=== PATIENT | male | born 1950 | race Caucasian/White ===

== ENCOUNTER → 2017-07-27 14:46 | Outpatient (CLI) | payer MEDICARE, SELFPAY ==
--- NOTE | 2017-07-27 14:47 | CT_ITS ---
STUDY: CTA CHEST REASON FOR EXAM: Male, 67 years old. Thoracic aortic aneurysm. RADIATION DOSAGE (If Supplied By Facility): CTDIvol = ( 17.91 ) mGy, DLP = ( 796.93 ) mGycm TECHNIQUE: The examination was performed with the intravenous administration of 100mL ml of Isovue 370 contrast material. Post-processing of the angiographic images was performed, with multiplanar reformation and 3D reconstruction. Individualized dose optimization techniques were used for this CT. COMPARISON: January 08, 2010. FINDINGS: Normal enhancement of the main pulmonary artery and right and left pulmonary arteries. Normal enhancement of the bilateral peripheral pulmonary arteries. There is no demonstrated pulmonary embolism. There is aneurysmal dilatation of the ascending aorta. The transverse diameter of the ascending aorta measures 49 mm's. There is no demonstrated aortic dissection. There are calcifications of the coronary arteries. Normal mediastinum. Normal hilar regions. Normal visualized trachea and bronchi. The lungs are well expanded. There are mildly increased diffuse interstitial parenchymal markings. Normal pleura. Normal chest wall structures. There are degenerative changes of thoracic spine. Degenerative change of the shoulders. Normal visualized upper abdomen. CT/CTA Chest W/WO Contrast IMPRESSION: Aneurysmal dilatation of the ascending aorta, increased compared to the prior study. No dissection. No focal infiltrate. A dominant mass Electronically Signed: Mitchell Verdugo MD at 23:14 EST , Service support ,
[2017-07-27 15:01] LABS: EGFR FINGERSTICK > 60.0000 mL/min (>60)
== END ==
PROVIDERS: Visit Provider Physician Assistant Medical
DX: I71.2 Thoracic aortic aneurysm, without rupture (principal)
CPT/HCPCS: 71275; Q9967

== ENCOUNTER → 2017-09-27 10:14 | Outpatient (CLI) | payer MEDICARE, SELFPAY ==
[2017-09-27 12:24] LABS: Anion Gap 8 (5-15); BUN 15 mg/dL (7-18); BUN/Creat Ratio 16.6 RATIO (10-20); Calcium,Total 9.5 mg/dL (8.5-10.1); Chloride 108 mmol/L (98-107); Cholesterol 195 mg/dL (200); EST Glomerular Filtration Rate 90 mL/min (>60); Est Glom Filt Rate - Afr Amer 109 mL/min (>60); Glucose 97 mg/dL (74-106); High Density Lipoprotein 39 mg/dL; Potassium 3.8 mmol/L (3.5-5.1); Sodium Level 141 mmol/L (136-145); Triglycerides 179 mg/dL; Very Low Density Lipoprotein 36 mg/dL (5-40)
== END ==
PROVIDERS: Family Provider Internal Medicine; PCP Internal Medicine; Visit Provider Internal Medicine
DX: I10 Essential (primary) hypertension (principal)
CPT/HCPCS: 36415; 80048; 80061

== ENCOUNTER 2017-10-21 06:48 | Day surgery (SDC) | payer MEDICARE, SELFPAY ==
--- NOTE | 2017-10-11 08:17 | EKG12_ITS ---
Test Reason : PREOP Blood Pressure : / mmHG Vent. Rate : 056 BPM Atrial Rate : 056 BPM P-R Int : 322 ms QRS Dur : 114 ms QT Int : 434 ms P-R-T Axes : 031 -31 006 degrees QTc Int : 418 ms Sinus bradycardia with 1st degree A-V block Left axis deviation Abnormal ECG Confirmed by MANINDER HUTCHINSON, VERN ([id number]), associate entertainment editor ELIUD CRANE ([id number]) on 10/12/2017 2:17:48 PM Referred By: Luis oFster Confirmed By:VERN DICKENS MD
[2017-10-21] VITALS (7 sets, daily range): BP systolic 108–153; BP diastolic 82–100; PULSE 50–87; RESP 16–18; TEMP 36.8–36.9; O2SAT 94–95; BMI 34.0
--- NOTE | 2017-10-21 08:21 | PCM.OPRPT ---
Problem List (1) Screen for colon cancer Status: Acute Report of Operation Date of Procedure: 10/21/17 Pre-Operative Diagnosis: Screening colon cancer Post-Operative Diagnosis: Normal colonoscopy Surgery/Procedure Performed:: Colonoscopy Specimen's removed: None Description of Procedure: The major risks and benefits associated with the procedure were explained to the patient in detail. The patient verbalized understanding and agreement with the same. The patient was brought to the endoscopy suite. After adequate sedation was achieved, the patient was placed in the left lateral decubitus position and a digital rectal exam was performed. This examination was within normal limits. A well-lubricated colonoscope was then inserted into the rectum and advanced under direct visualization to the level of the cecum. The bowel prep was good. The cecum was identified by both visual and anatomic landmarks. A photograph was taken of the end of the cecum. The scope was then fully withdrawn while examining the color, texture, anatomy and integrity of the mucosa from the cecum to the anal canal. The findings were consistent with normal colonic mucosa. Over 6 minutes were taken to examine the colonic mucosa. Upon reaching the rectum the scope was retroflexed to examine the distal rectal vault. The scope was then straightened and was completely retrieved upon exiting the anal canal and the procedure was terminated. The patient was then transferred to the recovery room in stable condition. Recommendations for follow up: 10 years
== END 2017-10-21 09:16 | disposition home or self-care (01) ==
LOC: EN 06:49 → AC 06:49
PROVIDERS: Family Provider Internal Medicine; PCP Internal Medicine; Visit Provider Surgery
PROC: 0DJD8ZZ Inspection of Lower Intestinal Tract, Via Natural or Artificial Opening Endoscopic (ICD-10-PCS; CPT 45378; principal; 2017-10-21 07:55)
DX: Z12.11 Encounter for screening for malignant neoplasm of colon (principal); I10 Essential (primary) hypertension; I49.3 Ventricular premature depolarization; I77.89 Other specified disorders of arteries and arterioles; I51.9 Heart disease, unspecified; G47.30 Sleep apnea, unspecified; G25.81 Restless legs syndrome; H35.30 Unspecified macular degeneration; Z79.82 Long term (current) use of aspirin; Z79.899 Other long term (current) drug therapy
CPT/HCPCS: G0121; 93005; J7120

== ENCOUNTER → 2018-01-17 08:19 | Outpatient (CLI) | payer MEDICARE, SELFPAY | PROVIDERS: Family Provider Internal Medicine; PCP Internal Medicine; Visit Provider Orthopaedic Surgery | DX: M25.561 Pain in right knee (principal); M25.562 Pain in left knee | CPT/HCPCS: 73564 ==

== ENCOUNTER → 2018-01-30 12:35 | Outpatient (CLI) | payer MEDICARE, SELFPAY ==
[2018-01-30 13:15] LABS: CREATININE FINGERSTICK < 0.6 mg/dL (0.70-1.30); EGFR FINGERSTICK > 60.0000 mL/min (>60)
== END ==
PROVIDERS: Family Provider Internal Medicine; PCP Internal Medicine; Visit Provider Physician Assistant Medical
DX: I71.9 Aortic aneurysm of unspecified site, without rupture (principal)
CPT/HCPCS: 71275; Q9967

== ENCOUNTER → 2018-03-09 08:31 | Outpatient (CLI) | payer MEDICARE, SELFPAY ==
--- NOTE | 2018-03-09 08:34 | RAD_ITS ---
STUDY: X-RAY - LEFT SHOULDER REASON FOR EXAM: Left shoulder pain. TECHNIQUE: 3 view(s) of the shoulder. COMPARISON: None. FINDINGS: There is severe glenohumeral arthrosis with marginal osteophytes of the humeral head and joint space loss. Normal acromioclavicular joint. Normal acromion. Normal humeral head and visualized proximal humerus. There are intra-articular bodies. Normal visualized pulmonary apex. RAD/Shoulder min 2 Views IMPRESSION: Advanced glenohumeral arthrosis with intra-articular bodies. Electronically Signed: Mahin Boles MD at 16:00 EDT Tel , Service support ,
== END ==
PROVIDERS: Family Provider Internal Medicine; PCP Internal Medicine; Referring Provider Orthopaedic Surgery; Visit Provider Orthopaedic Surgery
DX: M25.511 Pain in right shoulder (principal)
CPT/HCPCS: 73030

== ENCOUNTER → 2018-06-01 11:10 | Outpatient (CLI) | payer MEDICARE, SELFPAY ==
--- NOTE | 2018-06-01 11:12 | RAD_ITS ---
STUDY: X-RAY - LEFT KNEE REASON FOR EXAM: Male, 67 years old. Knee pain. TECHNIQUE: 4 view(s) of the knee. COMPARISON: January 17, 2018. FINDINGS: There is stable osteopenia. Normal visualized distal femur. Normal visualized proximal tibia and fibula. Normal proximal tibiofibular articulation. There is moderate to severe arthrosis of the medial compartment unchanged. Normal lateral femorotibial compartment. There is lateral subluxation and tilt of the patella with moderate arthrosis of the patellofemoral compartment unchanged. The soft tissue structures are unremarkable. RAD/Knee 4 or More Views IMPRESSION: Stable osteopenia with osteoarthrosis of the medial and patellofemoral compartments. Electronically Signed: Will Erazo MD at 17:14 EST , Service support ,
== END ==
PROVIDERS: Family Provider Internal Medicine; Referring Provider Orthopaedic Surgery; Visit Provider Orthopaedic Surgery
DX: M19.90 Unspecified osteoarthritis, unspecified site (principal)
CPT/HCPCS: 73564

== ENCOUNTER → 2018-07-17 08:56 | Outpatient (CLI) | payer MEDICARE, SELFPAY ==
[2018-07-17 08:08] VITALS: BMI 32.0
[2018-07-17 10:31] LABS: Absolute Lymphocyte Count 1.29 X10^3/ul (0.83-4.51); Absolute Neutrophil Count 2.9 X10^3/uL (2.0-7.7); Basophil# 0.03 X10^3/uL; Basophil% 0.6 % (0-1); Eosinophil# 0.13 X10^3/uL; Eosinophils% 2.7 % (0-5); Hematocrit 44.7 % (40-54); Hemoglobin 15.3 g/dl (13.0-16.5); Lymphocyte # 1.29 X10^3/ul (4.0); Lymphocyte % 26.6 % (19-41); Mean Corp Hgb Conc 34.2 g/gl (32-36); Mean Corpuscular Hgb 31.9 pg (27.0-32.0); Mean Corpuscular Volume 93.1 fL (80-94); Mean Platelet Vol. 9.3 fl (6.2-12.0); Monocyte# 0.49 X10^3/uL; Monocyte% 10.1 % (0-10); Neutrophil % 59.8 % (47-70); Platelet Count 249 K/mm3 (150-450); RBC Distribution Width CV 12.9 % (11.6-14.6); RBC Distribution Width SD 43.7 fl (35.1-43.9); White Blood Count 4.9 K/mm3 (4.4-11.0)
[2018-07-17 10:33] LABS: POSITIVE COUNT NO; POSITIVE DIFFERENTIAL NO; POSITIVE MORPHOLOGY NO
[2018-07-17 10:46] LABS: ALB/GLOB Ratio 1.2 RATIO (0.9-2.4); AST(SGOT) 20 U/L (15-37); Alanine Aminotransfer ALT/SGPT 26 U/L (16-61); Albumin, Serum 4.3 g/dL (3.2-5.0); Alkaline Phosphatase 64 U/L (45-117); Anion Gap 9 (5-15); BUN 12 mg/dL (7-18); BUN/Creat Ratio 14.2 RATIO (10-20); Calcium,Total 9.5 mg/dL (8.5-10.1); Chloride 108 mmol/L (98-107); Cholesterol 179 mg/dL (200); Creatinine, Serum 0.84 mg/dL (0.70-1.30); EST Glomerular Filtration Rate 97 mL/min (>60); Est Glom Filt Rate - Afr Amer 117 mL/min (>60); Globulin 3.6 g/dL (2.2-4.2); Glucose 102 mg/dL (74-106); High Density Lipoprotein 45 mg/dL; Potassium 3.4 mmol/L (3.5-5.1); Protein, Total 7.9 g/dL (6.4-8.2); Sodium Level 143 mmol/L (136-145); Triglycerides 156 mg/dL; Very Low Density Lipoprotein 31 mg/dL (5-40)
== END ==
PROVIDERS: Family Provider Internal Medicine; PCP Internal Medicine; Referring Provider Internal Medicine; Visit Provider Internal Medicine
DX: I10 Essential (primary) hypertension (principal)
CPT/HCPCS: 36415; 80053; 80061; 85025

== ENCOUNTER → 2018-10-16 | Outpatient (CLI) | payer MEDICARE, SELFPAY ==
[2018-10-16 08:11] VITALS: BMI 32.0
[2018-10-16 12:29] LABS: Erythrocyte Sedimentation Rate 10 mm/hr (0-20)
[2018-10-16 12:45] LABS: CRP < 2.90 mg/L (0.0-3.0)
== END | disposition home or self-care (01) ==
PROVIDERS: Family Provider Internal Medicine; PCP Internal Medicine; Visit Provider Internal Medicine
DX: M19.90 Unspecified osteoarthritis, unspecified site (principal)
CPT/HCPCS: 36415; 85652; 86140; 86431

== ENCOUNTER → 2018-12-13 | Outpatient (CLI) | payer MEDICARE, SELFPAY ==
[2018-10-24 08:25] VITALS: BMI 32.0
[2018-12-13 12:19] LABS: Absolute Lymphocyte Count 1.19 X10^3/ul (0.83-4.51); Absolute Neutrophil Count 2.1 X10^3/uL (2.0-7.7); Basophil# 0.01 X10^3/uL; Basophil% 0.3 % (0-1); Eosinophils% 2.6 % (0-5); Hematocrit 43.5 % (40-54); Hemoglobin 15.2 g/dl (13.0-16.5); Lymphocyte # 1.19 X10^3/ul (4.0); Lymphocyte % 31.1 % (19-41); Mean Corp Hgb Conc 34.9 g/gl (32-36); Mean Corpuscular Hgb 32.2 pg (27.0-32.0); Mean Corpuscular Volume 92.2 fL (80-94); Mean Platelet Vol. 9.2 fl (6.2-12.0); Monocyte# 0.48 X10^3/uL; Monocyte% 12.5 % (0-10); Neutrophil # 2.05 X10^3/uL (2.7-7.7); Neutrophil % 53.5 % (47-70); Platelet Count 247 K/mm3 (150-450); RBC Distribution Width CV 13.3 % (11.6-14.6); RBC Distribution Width SD 44.9 fl (35.1-43.9); Red Blood Count 4.72 M/mm3 (4.6-6.2); White Blood Count 3.8 K/mm3 (4.4-11.0)
[2018-12-13 12:21] LABS: POSITIVE COUNT NO; POSITIVE DIFFERENTIAL NO; POSITIVE MORPHOLOGY NO
[2018-12-13 12:49] LABS: Erythrocyte Sedimentation Rate 8 mm/hr (0-20)
[2018-12-13 12:51] LABS: ALB/GLOB Ratio 1.1 RATIO (0.9-2.4); AST(SGOT) 22 U/L (15-37); Alanine Aminotransfer ALT/SGPT 26 U/L (16-61); Albumin, Serum 4.2 g/dL (3.2-5.0); Alkaline Phosphatase 65 U/L (45-117); Anion Gap 9 (5-15); BUN 19 mg/dL (7-18); BUN/Creat Ratio 27.1 RATIO (10-20); CRP < 2.90 mg/L (0.0-3.0); Calcium,Total 9.9 mg/dL (8.5-10.1); Chloride 106 mmol/L (98-107); EST Glomerular Filtration Rate 120 mL/min (>60); Est Glom Filt Rate - Afr Amer 145 mL/min (>60); Globulin 3.7 g/dL (2.2-4.2); Glucose 91 mg/dL (74-106); Potassium 3.4 mmol/L (3.5-5.1); Protein, Total 7.9 g/dL (6.4-8.2); Rheumatoid Factor < 10.0 IU/mL (<15); Sodium Level 141 mmol/L (136-145)
[2018-12-13 13:32] LABS: Hepatitis B Surface Antibody Non-Reactive; Hepatitis B Surface Antigen Non-Reactive (Nonreactive); Hepatitis C Antibody Non-Reactive (Nonreactive)
[2018-12-18 12:50] LABS: ANTINUCLEAR ANTIBODIES DIRECT Negative (Negative)
[2018-12-18 12:51] LABS: CCP IgG Antibodies 4 units (0-19); Hepatitis B Core AB IgM Negative (Negative)
== END | disposition home or self-care (01) ==
LOC: MTLAB 09:36
PROVIDERS: Family Provider Internal Medicine; PCP Internal Medicine; Referring Provider Internal Medicine Rheumatology; Visit Provider Internal Medicine Rheumatology
DX: M06.4 Inflammatory polyarthropathy (principal); M15.9 Polyosteoarthritis, unspecified; M17.0 Bilateral primary osteoarthritis of knee
CPT/HCPCS: 36415; 80053; 85025; 85652; 86038; 86140; 86200; 86431; 86705; 86706; 86803; 87340

== ENCOUNTER → 2019-02-19 08:34 | Outpatient (CLI) | payer MEDICARE, SELFPAY ==
[2019-01-19 13:22] VITALS: BMI 32.0
[2019-02-19 10:08] LABS: Absolute Lymphocyte Count 1.42 X10^3/uL (0.83-4.51); Absolute Neutrophil Count 3.4 X10^3/uL (2.0-7.7); Basophil# 0.03 X10^3/uL; Basophil% 0.5 % (0-1); Eosinophil# 0.12 X10^3/uL; Eosinophils% 2.1 % (0-5); Hematocrit 43.9 % (40-54); Hemoglobin 14.7 g/dL (13.0-16.5); Lymphocyte # 1.42 X10^3/ul (4.0); Lymphocyte % 25.1 % (19-41); Mean Corp Hgb Conc 33.5 g/dL (32-36); Mean Corpuscular Hgb 31.6 pg (27.0-32.0); Mean Corpuscular Volume 94.4 fL (80-94); Mean Platelet Vol. 9.1 fl (6.2-12.0); Monocyte# 0.68 X10^3/uL; NRBC Flagged by Analyzer 0 % (0-5); Neutrophil % 60.1 % (47-70); Platelet Count 242 K/mm3 (150-450); RBC Distribution Width CV 12.6 % (11.6-14.6); RBC Distribution Width SD 43.3 fl (35.1-43.9); Red Blood Count 4.65 M/mm3 (4.6-6.2); White Blood Count 5.7 K/mm3 (4.4-11.0)
[2019-02-19 10:33] LABS: ALB/GLOB Ratio 1.1 RATIO (0.9-2.4); AST(SGOT) 18 U/L (15-37); Alanine Aminotransfer ALT/SGPT 28 U/L (16-61); Alkaline Phosphatase 66 U/L (45-117); Anion Gap 8 (5-15); BUN 16 mg/dL (7-18); BUN/Creat Ratio 16.6 RATIO (10-20); Calcium,Total 9.1 mg/dL (8.5-10.1); Chloride 107 mmol/L (98-107); Creatinine, Serum 0.96 mg/dL (0.70-1.30); EST Glomerular Filtration Rate 83 mL/min (>60); Est Glom Filt Rate - Afr Amer 100 mL/min (>60); Globulin 3.5 g/dL (2.2-4.2); Glucose 103 mg/dL (74-106); Potassium 3.3 mmol/L (3.5-5.1); Protein, Total 7.5 g/dL (6.4-8.2); Sodium Level 143 mmol/L (136-145)
== END ==
PROVIDERS: Family Provider Internal Medicine; PCP Internal Medicine; Referring Provider Internal Medicine Rheumatology; Visit Provider Internal Medicine Rheumatology
DX: M06.4 Inflammatory polyarthropathy (principal); M15.9 Polyosteoarthritis, unspecified; M17.0 Bilateral primary osteoarthritis of knee; M21.40 Flat foot [pes planus] (acquired), unspecified foot; H35.30 Unspecified macular degeneration; I10 Essential (primary) hypertension; I49.3 Ventricular premature depolarization; G47.33 Obstructive sleep apnea (adult) (pediatric); I71.2 Thoracic aortic aneurysm, without rupture
CPT/HCPCS: 36415; 80053; 85025

== ENCOUNTER → 2019-04-23 09:09 | Outpatient (CLI) | payer MEDICARE, SELFPAY ==
[2019-04-16 09:41] VITALS: BMI 32.0
[2019-04-23 10:24] LABS: Absolute Lymphocyte Count 1.08 X10^3/uL (0.83-4.51); Absolute Neutrophil Count 2.4 X10^3/uL (2.0-7.7); Basophil# 0.01 X10^3/uL; Basophil% 0.2 % (0-1); Eosinophil# 0.11 X10^3/uL; Eosinophils% 2.7 % (0-5); Hematocrit 41.9 % (40-54); Hemoglobin 14.3 g/dL (13.0-16.5); Lymphocyte # 1.08 X10^3/ul (4.0); Lymphocyte % 26.3 % (19-41); Mean Corp Hgb Conc 34.1 g/dL (32-36); Mean Corpuscular Hgb 31.8 pg (27.0-32.0); Mean Corpuscular Volume 93.1 fL (80-94); Mean Platelet Vol. 8.9 fl (6.2-12.0); Monocyte# 0.53 X10^3/uL; Monocyte% 12.9 % (0-10); NRBC Flagged by Analyzer 0 % (0-5); Neutrophil # 2.36 X10^3/uL (2.7-7.7); Neutrophil % 57.4 % (47-70); Platelet Count 266 K/mm3 (150-450); RBC Distribution Width CV 13.3 % (11.6-14.6); RBC Distribution Width SD 45.3 fl (35.1-43.9); White Blood Count 4.1 K/mm3 (4.4-11.0)
[2019-04-23 10:58] LABS: ALB/GLOB Ratio 1.1 RATIO (0.9-2.4); AST(SGOT) 23 U/L (15-37); Alanine Aminotransfer ALT/SGPT 25 U/L (16-61); Alkaline Phosphatase 58 U/L (45-117); Anion Gap 6 (5-15); BUN 13 mg/dL (7-18); BUN/Creat Ratio 15.2 RATIO (10-20); Calcium,Total 9.4 mg/dL (8.5-10.1); Chloride 108 mmol/L (98-107); Creatinine, Serum 0.85 mg/dL (0.70-1.30); EST Glomerular Filtration Rate 95 mL/min (>60); Est Glom Filt Rate - Afr Amer 115 mL/min (>60); Globulin 3.7 g/dL (2.2-4.2); Glucose 98 mg/dL (74-106); Potassium 3.2 mmol/L (3.5-5.1); Protein, Total 7.7 g/dL (6.4-8.2); Sodium Level 141 mmol/L (136-145)
== END ==
PROVIDERS: Family Provider Internal Medicine; PCP Internal Medicine; Referring Provider Internal Medicine Rheumatology; Visit Provider Internal Medicine Rheumatology
DX: M06.4 Inflammatory polyarthropathy (principal); Z79.899 Other long term (current) drug therapy; M15.9 Polyosteoarthritis, unspecified; M17.0 Bilateral primary osteoarthritis of knee; M21.40 Flat foot [pes planus] (acquired), unspecified foot; H35.40 Unspecified peripheral retinal degeneration; I10 Essential (primary) hypertension; I49.3 Ventricular premature depolarization; G47.33 Obstructive sleep apnea (adult) (pediatric); I71.2 Thoracic aortic aneurysm, without rupture
CPT/HCPCS: 36415; 80053; 85025

== ENCOUNTER → 2019-05-04 07:28 | Outpatient (CLI) | payer MEDICARE, SELFPAY ==
[2019-04-23 10:36] VITALS: BMI 33.1
--- NOTE | 2019-05-04 07:29 | CT_ITS ---
STUDY: CT CHEST WITH CONTRAST REASON FOR EXAM: Male, 68 years old. RADIATION DOSAGE (If Supplied By Facility): CTDIvol = ( 21.67 ) mGy, DLP = ( 709.22 ) mGycm TECHNIQUE: Transaxial imaging was performed following intravenous administration of IV Isovue 370 100. Individualized dose optimization techniques were used for this CT. COMPARISON: January 30, 2018 FINDINGS: There is still noted aneurysmal dilatation dilatation of the ascending aorta which measures in today's examination 4.9 x 4.2 when compared to the 4.4 x 4.1 cm before. While the descending aorta measures 3.6 cm in diameter. The pulmonary trunk measures 4.4 x 4.4 cm, the right pulmonary artery measures 3 cm in diameter, while the left pulmonary artery measures 2.7 cm. No filling defects to suggest pulmonary embolism. There are numerous lymph nodes seen in the mediastinum adjacent to the pulmonary artery on the left, precarinal, pretracheal and hilar adenopathy these lymph nodes did not change significantly in size since the previous examination. Otherwise both lung [place] are clear no evidence of consolidation or atelectasis no pulmonary nodules, no pneumothorax or pleural effusion seen. The visualized portion of the upper abdomen is within normal limits, a small lymph node is noted within the fat just above the diaphragm on the right side CT/Chest WITH Contrast IMPRESSION: Slight interval increase in the diameter of the aneurysmal dilatation of the descending aorta when compared to the previous examination No significant change in the appearance of the mildly enlarged lymphadenopathy in the mediastinum, precarinal, pretracheal and hilar in location. Electronically Signed: Sterling Melvin, at 9:34 EST Tel , Service support ,
== END ==
PROVIDERS: Family Provider Internal Medicine; PCP Internal Medicine; Referring Provider Internal Medicine Cardiovascular Disease; Visit Provider Internal Medicine Cardiovascular Disease
DX: I71.2 Thoracic aortic aneurysm, without rupture (principal)
CPT/HCPCS: 71260; Q9967; A4216

== ENCOUNTER → 2019-07-16 08:13 | Outpatient (CLI) | payer MEDICARE, SELFPAY ==
[2019-04-23 10:36] VITALS: BMI 33.1
[2019-07-16 10:22] LABS: Absolute Lymphocyte Count 1.07 X10^3/uL (0.83-4.51); Basophil# 0.04 X10^3/uL; Basophil% 0.8 % (0-1); Eosinophil# 0.13 X10^3/uL; Eosinophils% 2.6 % (0-5); Hematocrit 40.6 % (40-54); Hemoglobin 14.1 g/dL (13.0-16.5); Lymphocyte # 1.07 X10^3/ul (4.0); Lymphocyte % 21.7 % (19-41); Mean Corp Hgb Conc 34.7 g/dL (32-36); Mean Corpuscular Hgb 31.8 pg (27.0-32.0); Mean Corpuscular Volume 91.4 fL (80-94); Mean Platelet Vol. 9.2 fl (6.2-12.0); Monocyte# 0.66 X10^3/uL; Monocyte% 13.4 % (0-10); NRBC Flagged by Analyzer 0 % (0-5); Neutrophil # 3.03 X10^3/uL (2.7-7.7); Neutrophil % 61.3 % (47-70); Platelet Count 265 K/mm3 (150-450); RBC Distribution Width CV 13.2 % (11.6-14.6); RBC Distribution Width SD 43.5 fl (35.1-43.9); Red Blood Count 4.44 M/mm3 (4.6-6.2); White Blood Count 4.9 K/mm3 (4.4-11.0)
[2019-07-16 10:30] LABS: ALB/GLOB Ratio 1.2 RATIO (0.9-2.4); AST(SGOT) 22 U/L (15-37); Alanine Aminotransfer ALT/SGPT 32 U/L (16-61); Albumin, Serum 4.2 g/dL (3.2-5.0); Alkaline Phosphatase 57 U/L (45-117); Anion Gap 4 (5-15); BUN 11 mg/dL (7-18); Calcium,Total 9.7 mg/dL (8.5-10.1); Chloride 109 mmol/L (98-107); Creatinine, Serum 0.92 mg/dL (0.70-1.30); EST Glomerular Filtration Rate 87 mL/min (>60); Est Glom Filt Rate - Afr Amer 106 mL/min (>60); Globulin 3.4 g/dL (2.2-4.2); Glucose 104 mg/dL (74-106); Potassium 3.5 mmol/L (3.5-5.1); Protein, Total 7.6 g/dL (6.4-8.2); Sodium Level 141 mmol/L (136-145)
[2019-07-16 10:34] LABS: Cholesterol 170 mg/dL (200); High Density Lipoprotein 39 mg/dL; PSA,Total - Annual Screen 0.58 ng/mL (0.00-4.00); Triglycerides 144 mg/dL; Very Low Density Lipoprotein 29 mg/dL (5-40)
== END ==
PROVIDERS: PCP Internal Medicine; Referring Provider Internal Medicine Rheumatology; Visit Provider Internal Medicine Rheumatology
DX: M06.4 Inflammatory polyarthropathy (principal); G56.01 Carpal tunnel syndrome, right upper limb; M17.0 Bilateral primary osteoarthritis of knee; M21.40 Flat foot [pes planus] (acquired), unspecified foot; H35.30 Unspecified macular degeneration; I10 Essential (primary) hypertension; I49.3 Ventricular premature depolarization; G47.33 Obstructive sleep apnea (adult) (pediatric); I71.2 Thoracic aortic aneurysm, without rupture; N40.0 Benign prostatic hyperplasia without lower urinary tract symptoms; Z79.899 Other long term (current) drug therapy
CPT/HCPCS: 36415; 80053; 80061; 84153; 85025; G0103

== ENCOUNTER → 2019-10-15 13:54 | Outpatient (CLI) | payer MEDICARE, SELFPAY ==
[2019-07-16 12:47] VITALS: BMI 33.1
[2019-10-15 14:42] LABS: Absolute Neutrophil Count 3.6 X10^3/uL (2.0-7.7); Basophil# 0.03 X10^3/uL; Basophil% 0.5 % (0-1); Eosinophil# 0.09 X10^3/uL; Eosinophils% 1.6 % (0-5); Hematocrit 41.7 % (40-54); Hemoglobin 14.4 g/dL (13.0-16.5); Lymphocyte % 19.9 % (19-41); Mean Corp Hgb Conc 34.5 g/dL (32-36); Mean Corpuscular Hgb 32.2 pg (27.0-32.0); Mean Corpuscular Volume 93.3 fL (80-94); Mean Platelet Vol. 9.6 fl (6.2-12.0); Monocyte# 0.69 X10^3/uL; Monocyte% 12.5 % (0-10); NRBC Flagged by Analyzer 0 % (0-5); Neutrophil # 3.62 X10^3/uL (2.7-7.7); Neutrophil % 65.3 % (47-70); Platelet Count 256 K/mm3 (150-450); RBC Distribution Width CV 13.3 % (11.6-14.6); RBC Distribution Width SD 44.9 fl (35.1-43.9); Red Blood Count 4.47 M/mm3 (4.6-6.2); White Blood Count 5.5 K/mm3 (4.4-11.0)
[2019-10-15 15:01] LABS: ALB/GLOB Ratio 1.1 RATIO (0.9-2.4); AST(SGOT) 18 U/L (15-37); Alanine Aminotransfer ALT/SGPT 29 U/L (16-61); Alkaline Phosphatase 61 U/L (45-117); Anion Gap 8 (5-15); BUN 13 mg/dL (7-18); BUN/Creat Ratio 16.1 RATIO (10-20); Calcium,Total 9.6 mg/dL (8.5-10.1); Chloride 106 mmol/L (98-107); Creatinine, Serum 0.81 mg/dL (0.70-1.30); EST Glomerular Filtration Rate 101 mL/min (>60); Est Glom Filt Rate - Afr Amer 123 mL/min (>60); Globulin 3.7 g/dL (2.2-4.2); Glucose 77 mg/dL (74-106); Potassium 3.3 mmol/L (3.5-5.1); Protein, Total 7.7 g/dL (6.4-8.2); Sodium Level 141 mmol/L (136-145)
== END ==
PROVIDERS: PCP Internal Medicine; Referring Provider Internal Medicine Rheumatology; Visit Provider Internal Medicine Rheumatology
DX: M06.4 Inflammatory polyarthropathy (principal); G56.01 Carpal tunnel syndrome, right upper limb; M17.0 Bilateral primary osteoarthritis of knee; M21.40 Flat foot [pes planus] (acquired), unspecified foot; H35.30 Unspecified macular degeneration; I10 Essential (primary) hypertension; I49.3 Ventricular premature depolarization; G47.33 Obstructive sleep apnea (adult) (pediatric); I71.2 Thoracic aortic aneurysm, without rupture; Z79.899 Other long term (current) drug therapy
CPT/HCPCS: 80053; 85025

== ENCOUNTER → 2019-10-22 10:28 | Outpatient (CLI) | payer MEDICARE, SELFPAY ==
[2019-07-16 12:47] VITALS: BMI 33.1
[2019-10-24 20:07] LABS: Red Blood Cell Count Test/G6PD 4.56 x10E6/uL (4.14-5.80)
[2019-10-25 00:40] LABS: G6PD Quant Test 268 (146-376)
== END ==
PROVIDERS: PCP Internal Medicine; Referring Provider Internal Medicine Rheumatology; Visit Provider Internal Medicine Rheumatology
DX: M06.4 Inflammatory polyarthropathy (principal); M15.9 Polyosteoarthritis, unspecified; G56.01 Carpal tunnel syndrome, right upper limb; M17.0 Bilateral primary osteoarthritis of knee; M21.40 Flat foot [pes planus] (acquired), unspecified foot; H35.30 Unspecified macular degeneration; I10 Essential (primary) hypertension; I49.3 Ventricular premature depolarization; G47.33 Obstructive sleep apnea (adult) (pediatric); I71.2 Thoracic aortic aneurysm, without rupture; Z79.899 Other long term (current) drug therapy
CPT/HCPCS: 36415; 82955

== ENCOUNTER → 2019-12-11 09:13 | Outpatient (CLI) | payer MEDICARE, SELFPAY ==
[2019-07-16 12:47] VITALS: BMI 33.1
[2019-12-11 10:35] LABS: Absolute Neutrophil Count 1.9 X10^3/uL (2.0-7.7); Basophil# 0.02 X10^3/uL; Basophil% 0.6 % (0-1); Eosinophil# 0.06 X10^3/uL; Eosinophils% 1.7 % (0-5); Hematocrit 40.8 % (40-54); Hemoglobin 13.7 g/dL (13.0-16.5); Lymphocyte % 30.6 % (19-41); Mean Corp Hgb Conc 33.6 g/dL (32-36); Mean Corpuscular Hgb 31.9 pg (27.0-32.0); Mean Corpuscular Volume 94.9 fL (80-94); Mean Platelet Vol. 9.3 fl (6.2-12.0); Monocyte# 0.49 X10^3/uL; Monocyte% 13.6 % (0-10); NRBC Flagged by Analyzer 0 % (0-5); Neutrophil # 1.92 X10^3/uL (2.7-7.7); Neutrophil % 53.2 % (47-70); Platelet Count 270 K/mm3 (150-450); RBC Distribution Width CV 13.5 % (11.6-14.6); RBC Distribution Width SD 47.3 fl (35.1-43.9); White Blood Count 3.6 K/mm3 (4.4-11.0)
[2019-12-11 11:00] LABS: ALB/GLOB Ratio 1.1 RATIO (0.9-2.4); AST(SGOT) 20 U/L (15-37); Alanine Aminotransfer ALT/SGPT 27 U/L (16-61); Alkaline Phosphatase 64 U/L (45-117); Anion Gap 9 (5-15); BUN 12 mg/dL (7-18); BUN/Creat Ratio 13.6 RATIO (10-20); Calcium,Total 9.1 mg/dL (8.5-10.1); Chloride 105 mmol/L (98-107); Creatinine, Serum 0.88 mg/dL (0.70-1.30); EST Glomerular Filtration Rate 92 mL/min (>60); Est Glom Filt Rate - Afr Amer 111 mL/min (>60); Globulin 3.5 g/dL (2.2-4.2); Glucose 117 mg/dL (74-106); Potassium 3.2 mmol/L (3.5-5.1); Protein, Total 7.5 g/dL (6.4-8.2); Sodium Level 141 mmol/L (136-145)
== END ==
PROVIDERS: PCP Internal Medicine; Referring Provider Internal Medicine Rheumatology; Visit Provider Internal Medicine Rheumatology
DX: M06.4 Inflammatory polyarthropathy (principal); Z79.899 Other long term (current) drug therapy; M15.9 Polyosteoarthritis, unspecified; G56.01 Carpal tunnel syndrome, right upper limb; M17.0 Bilateral primary osteoarthritis of knee; M21.40 Flat foot [pes planus] (acquired), unspecified foot; H35.30 Unspecified macular degeneration; I10 Essential (primary) hypertension; I49.3 Ventricular premature depolarization; G47.33 Obstructive sleep apnea (adult) (pediatric); I71.2 Thoracic aortic aneurysm, without rupture
CPT/HCPCS: 36415; 80053; 85025

== ENCOUNTER → 2020-02-12 07:53 | Outpatient (CLI) | payer MEDICARE, SELFPAY ==
[2019-12-11 10:34] VITALS: BMI 33.1
[2020-02-12 10:38] LABS: Absolute Lymphocyte Count 1.23 X10^3/uL (0.83-4.51); Absolute Neutrophil Count 1.6 X10^3/uL (2.0-7.7); Basophil# 0.02 X10^3/uL; Basophil% 0.6 % (0-1); Eosinophil# 0.09 X10^3/uL; Eosinophils% 2.6 % (0-5); Hematocrit 41.9 % (40-54); Hemoglobin 14.2 g/dL (13.0-16.5); Lymphocyte # 1.23 X10^3/ul (4.0); Lymphocyte % 36.1 % (19-41); Mean Corp Hgb Conc 33.9 g/dL (32-36); Mean Corpuscular Hgb 32.1 pg (27.0-32.0); Mean Corpuscular Volume 94.8 fL (80-94); Mean Platelet Vol. 9.2 fl (6.2-12.0); Monocyte# 0.46 X10^3/uL; Monocyte% 13.5 % (0-10); NRBC Flagged by Analyzer 0 % (0-5); Neutrophil % 46.9 % (47-70); Platelet Count 295 K/mm3 (150-450); RBC Distribution Width CV 13.6 % (11.6-14.6); RBC Distribution Width SD 47.8 fl (35.1-43.9); Red Blood Count 4.42 M/mm3 (4.6-6.2); White Blood Count 3.4 K/mm3 (4.4-11.0)
[2020-02-12 10:58] LABS: ALB/GLOB Ratio 1.2 RATIO (0.9-2.4); AST(SGOT) 24 U/L (15-37); Alanine Aminotransfer ALT/SGPT 28 U/L (16-61); Albumin, Serum 4.2 g/dL (3.2-5.0); Alkaline Phosphatase 58 U/L (45-117); Anion Gap 4 (5-15); BUN 11 mg/dL (7-18); BUN/Creat Ratio 12.5 RATIO (10-20); Calcium,Total 9.2 mg/dL (8.5-10.1); Chloride 108 mmol/L (98-107); Creatinine, Serum 0.88 mg/dL (0.70-1.30); EST Glomerular Filtration Rate 92 mL/min (>60); Est Glom Filt Rate - Afr Amer 111 mL/min (>60); Globulin 3.4 g/dL (2.2-4.2); Glucose 115 mg/dL (74-106); Potassium 3.5 mmol/L (3.5-5.1); Protein, Total 7.6 g/dL (6.4-8.2); Sodium Level 141 mmol/L (136-145)
== END ==
PROVIDERS: PCP Internal Medicine; Referring Provider Internal Medicine Rheumatology; Visit Provider Internal Medicine Rheumatology
DX: M06.4 Inflammatory polyarthropathy (principal); G56.01 Carpal tunnel syndrome, right upper limb; M17.0 Bilateral primary osteoarthritis of knee; I71.2 Thoracic aortic aneurysm, without rupture; I10 Essential (primary) hypertension; I49.3 Ventricular premature depolarization; M21.40 Flat foot [pes planus] (acquired), unspecified foot; H35.30 Unspecified macular degeneration; G47.33 Obstructive sleep apnea (adult) (pediatric); Z79.899 Other long term (current) drug therapy
CPT/HCPCS: 36415; 80053; 85025

== ENCOUNTER → 2020-03-24 10:47 | Outpatient (CLI) | payer MEDICARE, SELFPAY ==
[2019-12-11 10:34] VITALS: BMI 33.1
[2020-03-24 08:05] VITALS: BMI 33.3
--- NOTE | 2020-03-24 10:48 | ECHOD_ITS ---
Reason For Study: cardiac murmur Procedure This was a 2D Doppler, Color Flow transthoracic echocardiogram. The study was technically difficult. Exam performed in department. Left Ventricle Normal LV size. Left ventricular systolic function is normal. The estimated ejection fraction is 55 %. Diastolic function is indeterminate. No regional wall motion abnormalities noted. Right Ventricle Normal RV size. Normal systolic function. Atria Normal left atrium. Normal right atrium. No doppler evidence for ASD. Mitral Valve There is no mitral annular calcification. Normal mitral valve. Trivial mitral valve insufficiency. Tricuspid Valve Normal tricuspid valve. Trivial tricuspid valve insufficiency. Right ventricular systolic pressure estimated to be 29 mmHg. Aortic Valve Trisinus/trileaflet aortic valve. Normal aortic valve. Pulmonic Valve The pulmonic valve is not well visualized. Mild (1+) pulmonic valve insufficiency. Great Vessels Moderately dilated aortic root. Pericardium/Pleural No pericardial effusion. MMode/2D Measurements & Calculations LVIDd: 5.3 cm IVSd: 1.4 cm Ao root diam: 4.5 cm LVIDs: 3.4 cm LVPWd: 1.4 cm RVDd: 3.8 cm FS: 36.8 % LAV(MOD-bp): 78.8 ml LA A4 area: 23.3 cm2 LA dimension(2D): 3.8 cm LAV(MOD-bp) Indexed: 35.8 ml/m2 LAV(MOD-sp2): 74.3 ml LAV(MOD-sp4): 74.2 ml RA A4 area: 23.8 cm2 Time Measurements MV dec time: 0.22 sec Doppler Measurements & Calculations MV E max roger: 45.9 cm/sec Lat Peak E' Roger: 9.7 cm/sec Med Peak E' Roger: 4.4 cm/sec MV A max roger: 76.4 cm/sec E/E' lat: 4.7 E/E' med: 10.4 MV E/A: 0.60 Ao V2 max: 143.3 cm/sec LV V1 max: 110.9 cm/sec PA V2 max: 95.5 cm/sec Ao max P.2 mmHg LV V1 max P.9 mmHg PI dec slope: 147.7 cm/sec2 TR max roger: 253.1 cm/sec TR max P.6 mmHg Interpretation Summary Left ventricular systolic function is normal. The estimated ejection fraction is 55 %. Trivial mitral valve insufficiency. Trivial tricuspid valve insufficiency. Mild (1+) pulmonic valve insufficiency. Moderately dilated aortic root. Right ventricular systolic pressure estimated to be 29 mmHg. Diastolic function is indeterminate. Ordering Physician: Rom Thompson Referring Physician: Everett Natarajan Performed By: Юлия Thorne, CHERYL, RVT
== END ==
PROVIDERS: PCP Internal Medicine; Referring Provider Internal Medicine Cardiovascular Disease; Visit Provider Internal Medicine Cardiovascular Disease
DX: I10 Essential (primary) hypertension (principal); I44.1 Atrioventricular block, second degree; I49.1 Atrial premature depolarization; I49.3 Ventricular premature depolarization; R01.1 Cardiac murmur, unspecified
CPT/HCPCS: 93306

== ENCOUNTER → 2020-04-07 08:27 | Outpatient (CLI) | payer MEDICARE, SELFPAY ==
[2020-03-24 08:59] VITALS: BMI 33.3
[2020-04-07 10:02] LABS: Absolute Lymphocyte Count 0.89 X10^3/uL (0.83-4.51); Basophil# 0.01 X10^3/uL; Basophil% 0.2 % (0-1); Eosinophils% 2.2 % (0-5); Hematocrit 41.1 % (40-54); Hemoglobin 13.9 g/dL (13.0-16.5); Lymphocyte # 0.89 X10^3/ul (4.0); Lymphocyte % 19.7 % (19-41); Mean Corp Hgb Conc 33.8 g/dL (32-36); Mean Corpuscular Hgb 32.6 pg (27.0-32.0); Mean Corpuscular Volume 96.3 fL (80-94); Mean Platelet Vol. 8.9 fl (6.2-12.0); Monocyte# 0.53 X10^3/uL; Monocyte% 11.7 % (0-10); NRBC Flagged by Analyzer 0 % (0-5); Neutrophil # 2.98 X10^3/uL (2.7-7.7); Platelet Count 280 K/mm3 (150-450); RBC Distribution Width CV 13.5 % (11.6-14.6); RBC Distribution Width SD 47.3 fl (35.1-43.9); Red Blood Count 4.27 M/mm3 (4.6-6.2); White Blood Count 4.5 K/mm3 (4.4-11.0)
[2020-04-07 10:28] LABS: ALB/GLOB Ratio 1.1 RATIO (0.9-2.4); AST(SGOT) 21 U/L (15-37); Alanine Aminotransfer ALT/SGPT 27 U/L (16-61); Alkaline Phosphatase 68 U/L (45-117); Anion Gap 8 (5-15); BUN 12 mg/dL (7-18); BUN/Creat Ratio 12.3 RATIO (10-20); Calcium,Total 9.2 mg/dL (8.5-10.1); Chloride 107 mmol/L (98-107); Creatinine, Serum 0.98 mg/dL (0.70-1.30); EST Glomerular Filtration Rate 81 mL/min (>60); Est Glom Filt Rate - Afr Amer 98 mL/min (>60); Globulin 3.7 g/dL (2.2-4.2); Glucose 111 mg/dL (74-106); Potassium 3.5 mmol/L (3.5-5.1); Protein, Total 7.7 g/dL (6.4-8.2); Sodium Level 142 mmol/L (136-145)
== END ==
PROVIDERS: PCP Internal Medicine; Referring Provider Internal Medicine Rheumatology; Visit Provider Internal Medicine Rheumatology
DX: M06.4 Inflammatory polyarthropathy (principal); G56.01 Carpal tunnel syndrome, right upper limb; M17.0 Bilateral primary osteoarthritis of knee; M21.40 Flat foot [pes planus] (acquired), unspecified foot; H35.30 Unspecified macular degeneration; I10 Essential (primary) hypertension; I49.3 Ventricular premature depolarization; G47.33 Obstructive sleep apnea (adult) (pediatric); I71.2 Thoracic aortic aneurysm, without rupture; Z79.899 Other long term (current) drug therapy
CPT/HCPCS: 36415; 80053; 85025

== ENCOUNTER → 2020-04-14 12:42 | Outpatient (CLI) | payer MEDICARE, SELFPAY ==
[2020-03-24 08:59] VITALS: BMI 33.3
--- NOTE | 2020-04-14 13:53 | NEURO ---
NCS and/or EMG Patient Report Ordering Doctor: BhupendraamyShital buttsteven DATE OF SERVICE: 04/14/20 Indication: Pain and numbness involving the first 3 digits of the right hand. Evaluate for median neuropathy at the wrist. Findings: Nerve conduction studies were performed in the right upper extremity. The right median motor study recording the abductor pollicis brevis showed a trace amplitude, heartedly prolonged distal latency and slowed conduction velocity. The right ulnar motor study recording the abductor digiti minimi showed a normal amplitude, normal distal latency and normal conduction velocity. No conduction block or focal slowing was present across the elbow. The right median sensory response recording digit two showed an absent response. The right ulnar sensory response recording digit five showed a borderline amplitude, normal latency and normal conduction velocity. The right radial sensory response recording over the extensor snuff box showed a borderline amplitude, normal latency and normal conduction velocity. Needle EMG of the right upper extremity muscles was performed. Active denervation was seen in the abductor pollicis brevis muscle. With volitional activation only one motor unit was seen firing rapidly in the abductor pollicis brevis muscle. All other examined muscles revealed normal motor unit morphology, activation, and recruitment patterns. Impression: This is a markedly abnormal study. 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 The isolated motor unit changes in the abductor pollicis brevis are suggestive, but not diagnostic of median nerve entrapment across the wrist. Further evaluation with neuromuscular ultrasound may be helpful in localizing the site of injury. Finally the borderline sensory amplitudes are of unclear significance. While technically within the range of normal and underlying peripheral polyneuropathy cannot be entirely excluded. Van Melgar D.O.
== END ==
PROVIDERS: PCP Internal Medicine; Referring Provider Internal Medicine; Visit Provider Internal Medicine
DX: G56.01 Carpal tunnel syndrome, right upper limb (principal)
CPT/HCPCS: 95886; 95909

== ENCOUNTER → 2020-05-23 09:53 | Outpatient (CLI) | payer MEDICARE, SELFPAY ==
[2020-05-23 08:23] VITALS: BMI 33.4
--- NOTE | 2020-05-23 10:05 | RAD_ITS ---
STUDY: X-RAY - THORACIC SPINE REASON FOR EXAM: Male, 69 years old. Mid back pain, headache TECHNIQUE: 3 view(s) of the thoracic spine were obtained. COMPARISON: None. FINDINGS: There is an increase in the normal thoracic kyphosis. There is no substantial scoliosis. There is multilevel endplate spondylosis of the thoracic vertebrae. There is multilevel disc space narrowing of the thoracic spine. The soft tissue structures are unremarkable. RAD/Thoracic Spine 3 Views IMPRESSION: Degenerative changes with increased kyphotic curvature, no demonstrated fracture or suspicious osseous lesion Electronically Signed: Cresencio Vasques MD at 16:50 EST , Service support ,
== END ==
PROVIDERS: PCP Internal Medicine; Referring Provider Nurse Practitioner Family; Visit Provider Nurse Practitioner Family
DX: M54.6 Pain in thoracic spine (principal); R20.2 Paresthesia of skin
CPT/HCPCS: 72072

== ENCOUNTER → 2020-05-26 06:58 | Outpatient (CLI) | payer MEDICARE, SELFPAY ==
[2020-05-09 08:28] VITALS: BMI 33.4
[2020-05-23 08:23] VITALS: BMI 33.4
--- NOTE | 2020-05-26 07:09 | CT_ITS ---
STUDY: CT SOFT TISSUE NECK WITH CONTRAST REASON FOR EXAM: Male, 69 years old. 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 High resolution transaxial imaging was performed following intravenous administration of IV 100mL Isovue-300. Sagittal and coronal images were reconstructed. Individualized dose optimization techniques were used for this CT. COMPARISON: None. FINDINGS: Normal bilateral parotid glands. Normal bilateral dial screw assembler spaces. Normal bilateral parapharyngeal spaces. Normal bilateral carotid spaces. There is a 1.5 cm x 1.1 cm densely calcified density in the right submandibular gland. The right submandibular gland is decreased size as compared to the left side. Normal visualized nasopharynx. Normal retropharyngeal space. Normal perivertebral space. Normal visualized bilateral faucial tonsils. The visualized tongue, tongue base and oropharynx are normal. The visualized cervical lymph nodes (levels I-) are within normal size limits, and maintain normal morphology. There is no demonstrated solid or cystic mass lesion. There is no abnormal contrast enhancement. Normal epiglottis, bilateral vallecula and hypopharynx. The pre-epiglottic and paraglottic adipose spaces are normal. Normal visualized bilateral piriform sinuses, aryepiglottic folds, vocal cords, and arytenoid-cricoid articulations. Normal subglottic trachea. Minimal enlargement of the right lobe of the thyroid. Normal visualized pulmonary apices. Normal visualized paranasal sinuses. Straightening of the normal cervical lordosis. Moderate degree of disc space narrowing at the C4-C5 level. CT/Soft Tissue Neck WITH Contrast IMPRESSION: Dense calcification in a atrophied right submandibular gland. Mild enlargement of the right lobe of the thyroid. Electronically Signed: Daniel Vences, at 10:15 EST , Service support ,
[2020-05-26 07:23] LABS: Creatinine, Serum 0.85 mg/dL (0.70-1.30); EST Glomerular Filtration Rate 95 mL/min (>60); Est Glom Filt Rate - Afr Amer 115 mL/min (>60)
== END ==
PROVIDERS: PCP Internal Medicine; Referring Provider Otolaryngology; Visit Provider Otolaryngology
DX: Z01.812 Encounter for preprocedural laboratory examination (principal); R22.0 Localized swelling, mass and lump, head
CPT/HCPCS: 36415; 70491; 82565; Q9967

== ENCOUNTER 2020-06-30 09:00 | Outpatient (RCR) | payer MEDICARE, SELFPAY ==
[2020-05-23 08:23] VITALS: BMI 33.4
--- NOTE | 2020-06-09 10:09 | HP.PTEVAL_ITS ---
Patient's Visit Information Giuliano ROACH is a 69 year old M referred to Physical Therapy by Dr. Delgado Garcia MD with a diagnosis of THORACIC PAIN. Date of Evaluation: 06/09/20 Physical Therapist: Tatianna Castro PT, Cert MDT - Visit Plan Frequency: 2-3x /Week Duration: 4-6 Weeks Plan: ISSUE [facility] F[facility]DER NEXT VISIT PLEASE. US TO RIGHT THORACIC TENDER AREA. MH NEEDED. CONSIDER TRIAL OF TENS - NC. POSTURE CORRECTION/STRENGTHENING, INSTRUCTION IN APPROPRIATE BODY MECHANICS AND ACTIVITY MODIFICATIONS. ALON UE AND LE ROM, STRETCHING AND STRENGTHENING. HEP INSTRUCTION. 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 QUITE A BIT OF BENDING, LIFTING AND TWISTING AT WORK. 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 Present symptoms: TIGHT AND ACHY ACROSS SHOULDE RS ALL THE TIME. LOW BACK PAIN. INTERMITTENT RADIATING ALON UE AND LE PAIN, NUMBNESS AND TINGLILNG. CURRENTLY WEARING RIGHT WRIST BRACE FOR CARPAL TUNNEL WITH CONSTANT RIGHT THUMB, INDEX AND MIDDLE FINGER TINGLING. PATIENT REPORTS HE ISN'T SURE WHICH PAIN THE DOCTOR SENT HIM HERE FOR. THINKS IT MIGHT BE FOR HIS RIGHT SIDE PAIN. BURNING AND RAW PAIN CURRENTLY ON RIGHT SIDE. Present since: DAY STARTED GETTING STINGING AND BURNING ON RIGHT SIDE. STARTED BEING TREATED FOR SHINGLES WITH STEROIDS BUT THEY DIDN'T HELP. ALSO GIVEN TRAMADOL AND IT DIN'T HELP EITHER. Pain Scale: RIGHT SIDE PAIN: WORST 6/10, LEAST 3/10. Currently: 3/10. Commenced as a result of: NO APPARENT REASON. Symptoms at onset: BURNING PAIN. Worse: SITTING IN RECLINER IN EVENING. Better: POSSIBLY FREQUENT CHANGE OF POSITION. Disturbed sleep: NO. Previous history/Previous treatment: 1980 SCIATICA. NO NECK OR BACK SURGERY. NO LUPE'S. CHIROPRACTOR ABOUT 15 YEARS AGO. Coughing/sneezing/straining: NEGATIVE. Gait: NO NEW CHANGES. Accidents: NO. Unexplained weight loss: NO. Imaging: NCT MAR 2020 FOLLOWED BY CONSULT WITH DR. BARRAGAN AND SHE WANTS HIM TO HAVE FURTHER TESTING AT THE [facility] PENDING JUL 17 2019 (ULTRASOUND). STATES DR. BARRAGAN INS'T POSITIVE FROM THE NCT THAT THE PROBLEM IS IN HIS WRIST. NECK X-RAYS. BACK X-RAYS. SEE [facility] EMR. CAT SCAN. NO MRI'S. NECK AND THORACIC SPINE X-RAYS SHOW MULTI-LEVEL DDD, STENOSIS AND SPONDYLOSIS/ARTHROSIS. ALON SHOULDER PAIN AND LIMITED MOBILITY - CHRONIC. PMH: ARTHRITIS - SEE'S DR. KINCAID. HTN. ENLARGED ASCENDING AORTA BEING MONITORED. - Objective Sitting Posture/Standing Posture: POOR. INCREASED KYPHOSIS, FH, RSH'S AND DECREASED LORDOSIS. Active Correction of posture: NE. Other Observations: INDEP GAIT AND TRANSFERS. Motor deficit: RIGHT UE AND ALON LE'S WFL. LEFT SHOULDER GREATLY LIMITED WITH LESS THAN 90 DEG ELEVATION. Sensory deficit: DECREASED LIGHT TOUCH FIRST 3 DIGITS RIGHT HAND. ROM deficit: VERY LIMITED L SHOULDER ELEVATION - LESS THAN 90 DEG. TIGHT ALON LE HIP FLEXORS, HS'S AND GASTROC SOLEUS COMPLEX'S. Reflexes: NT. Dural Signs: NEGATIVE ALON UE AND LE D URAL SIGNS. Cervical Mvmt Loss: Flex: NIL. Pro: NIL. Ext: MOD. Ret: MOD. RSB: MOD. LSB: MOD. R Rot: MOD TO CODY. L Rot: MOD. THORACIC MVMT LOSS: R ROT - CODY - GRABS ON RIGHT SIDE, L ROT - MOD - TIGHTENS UP JUST TO THE LEFT OF THE SPINE. LUMBAR MVMT LOSS: FLEX - MIN, EXT - CODY, RSG - CODY, LSG - CODY. Postural strength: POOR. Palpation: NO ACUTE SPINAL TENDERNESS BUT INCREASED MUSCLE TONE ALON NECK AND SPINAL MUSCULATURE. TREATMENT: NEUROMUSCULAR REEDUCATION - RETRAINING OF MVMT AND POSTURE FOR SITTING, LYING AND STANDING ACTIVITIES. - Goals Goal 1:: DECREASE C/O UPPER BACK/SHOULDER AND R SIDE PAIN. Goal Time Frame: 4-6 Weeks Goal 2:: IMPROVE THORACIC ROTATION, LIFTING, STANDING, HOMEMAKING AND WORK FUNCTION Goal Time Frame: 4-6 Weeks Goal 3:: INSTRUCT IN PROPHYLAXIS Goal Time Frame: 4-6 Weeks - Anticipated Interventions Patient/Client Instruction: Educate patient on: Condition, Plan of Care, Risk Factors, Benefits of Fitness Program For the Purpose of:: To improve self management Therapeutic Exercise to Include: Strength training, Body mechanics, Postural training, Flexibilty training, Neuromotor development, In an aquatic setting, Dynamic Lumbar Stabilization, Scapular Strength/Stabilization For the Purpose of:: To decrease pain, To increase ROM, To improve muscle performance and motor function, To increase tolerance to activity/condition/position, To improve ability of physical actions for home/community/work/leisure TENS: Yes - NC Thermo therapy (hot pack): Yes Ultrasound (thermal/non thermal): Yes For the Purpose of:: To decrease pain, To decrease swelling/inflammation, To improve nutrient delivery to tissue Thank you for the opportunity to evaluate your patient. For Medicare and Medicare HMO plans, please review the plan of care and approve it. It will need to be FAXED BACK to us at [phone] for Medicare purposes. For Medicare only, by signing this I certify the plan of care. Please let me know if there are questions or concerns regarding this plan of care. Physician Signature: Date:
--- NOTE | 2020-06-30 09:27 | HP.PTDCSUM_ITS ---
It has been my pleasure to treat A NEHAL ROACH referred by Dr. Delgado Franco MD, with the diagnosis of THORACIC PAIN for a total of 9 visit(s). Discharge Date: Please see the following information for a summary of their discharge status. Subjective: PATIENT REPORTS HE IS NO BETTER AND NO WORSE SINCE STARTING PT EXCEPT SOMETIMES HIS L SHOULDER SEEMS TO BE GETTING WORSE WITH WORK AND PT. WORKED 7.5 HOURS YESTERDAY ON [employer] BUT DIDN'T NEED TO LIFT MORE THAN 30 LBS BUT MISERABLE WHEN HE GOT HOME. NECK AND SHOULDERS ARE ALWAYS TIGHT. RIGHT SIDE PAIN THAT WAS ORIGIANALLY THOUGHT TO BE SHINGLES IS NO BETTER AND NO WORSE SINCE STARTING THERAPY. REPORTS HE HAD A FOLLOW UP CONCHITA'T WITH DR. FRANCO LAST TUESDAY AND SHE INCREASED HIS BLOOD PRESSURE MEDICINE AND PUT HIM ON A COUPLE MEDICATIONS TO HELP HIM RELAX BEFORE BEDTIME. STATES HE HAS BEEN ON THE NEW MEDS FOR A WEEK AND HAS NOT NOTICED ANY DIFFERENCE. STATES SHE IS AWARE PT IS NOT HELPING. STATES DR. FARNCO WANTS HIM TO SEE HER AGAIN IN A MONTH. PATIENT REPORTS DR. FRANCO ALSO GAVE HIM AN ORDER FOR CHIROPRACTIC AND HE HAS AN CONCHITA'T IN AUGUST WITH DR. DAVENPORT. 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 JUL 17 2020 CONSULT PENDING [facility] FOR RIGHT WRIST AND HAND. CONCHITA'T WITH DR. WOODY PENDING JUL 21 2020. PLANNING TO RETIRE COMPLETELY IN NOVEMBER 2020. % Improvement: 0 Objective/Function: PATIENT WAS SEEN TODAY FOR RE-ASSESSMENT OF PROGRESS TOWARD THE SET PT GOALS AND THE NEED FOR FURTHER PHYSICAL THERAPY VS READINESS FOR DISCHARGE. PATIENT IS NOT IMPROVING. UPON EXAM THERE ARE NO SIGNIFICANT CHANGES TODAY. RECOMMEND PHYSICAIN FOLLOW UP SCHEDULED/NEEDED AND PATIENT AGREEABLE. UPON EXAM TODAY: Cervical Mvmt Loss: Flex: NIL. Pro: NIL. Ext: MOD. Ret: MOD. RSB: MOD. LSB: MOD. R Rot: MOD TO CODY. L Rot: MOD. THORACIC MVMT LOSS: R ROT - CODY - GETS TIGHT ALL AT ONCE, L ROT - MOD - CATCH ON R COMING BACK. LUMBAR MVMT LOSS: FLEX - MIN, EXT - CODY, RSG - CODY, LSG - CODY. Postural strength: POOR Goal 1:: DECREASE C/O UPPER BACK/SHOULDER AND R SIDE PAIN. Goal 2:: IMPROVE THORACIC ROTATION, LIFTING, STANDING, HOMEMAKING AND WORK FUNCTION Goal 3:: INSTRUCT IN PROPHYLAXIS Plan: D/C DUE TO LACK OF PROGRESS. PATIENT IS AGREEABLE. PATIENT REPORTS HE WILL FOLLOW UP WITH HIS DOCTORS SCHEDULED/NEEDED. If there are questions or concerns regarding this patient's physical therapy, please feel free to call me at [phone]. Thank you for the referral of this patient. Sincerely, Tatianna Castro, PT, Cert MDT
== END 2020-06-30 19:00 | disposition home or self-care (01) ==
LOC: PT 09:00
PROVIDERS: PCP Internal Medicine; Referring Provider Internal Medicine; Visit Provider Internal Medicine
DX: M54.6 Pain in thoracic spine (principal)
CPT/HCPCS: 97035; 97110; 97112; 97162; 97164

== ENCOUNTER → 2020-07-07 08:22 | Outpatient (CLI) | payer MEDICARE, SELFPAY ==
[2020-06-27 13:07] VITALS: BMI 34.4
--- NOTE | 2020-07-07 08:24 | CT_ITS ---
STUDY: CT CHEST WITH CONTRAST REASON FOR EXAM: Male, 70 years old. Thoracic aortic aneurysm, hX-HTN, PVC RADIATION DOSAGE (If Supplied By Facility): CTDIvol = ( 17.98 ) mGy, DLP = ( 747.96 ) mGycm TECHNIQUE: Transaxial imaging was performed following intravenous administration of IV 100mL Isovue-300. Multiplanar coronal and sagittal images were reformatted. Individualized dose optimization techniques were used for this CT. COMPARISON: Comparison is made with prior study dated 05/04/2019. FINDINGS: Mild enlargement of the right lobe of the thyroid. Stable benign-appearing bilateral axillary lymph nodes. The lungs are normal. There is no demonstrated pleural abnormality. There are calcifications of the coronary arteries. There are multiple small lymph nodes within the mediastinum, which are normal in size and morphology most compatible with reactive lymph hyperplasia. Normal hilar regions. Normal enhanced pulmonary arteries. The aortic root as a transverse dimension of 4.5 cm. Normal osseous structures. Diffuse fatty infiltration of the liver. Small hiatal hernia. CT/Chest WITH Contrast IMPRESSION: Stable dilatation of the aortic root. Electronically Signed: aDniel Vences MD at 9:23 EST , Service support ,
== END ==
PROVIDERS: PCP Internal Medicine; Referring Provider Internal Medicine Cardiovascular Disease; Visit Provider Internal Medicine Cardiovascular Disease
DX: I71.2 Thoracic aortic aneurysm, without rupture (principal)
CPT/HCPCS: 71260; Q9967

== ENCOUNTER → 2020-07-14 08:51 | Outpatient (CLI) | payer MEDICARE, SELFPAY ==
[2020-06-27 13:07] VITALS: BMI 34.4
[2020-07-14 09:46] LABS: Absolute Lymphocyte Count 1.24 X10^3/uL (0.83-4.51); Absolute Neutrophil Count 3.2 X10^3/uL (2.0-7.7); Basophil# 0.02 X10^3/uL; Basophil% 0.4 % (0-1); Eosinophil# 0.13 X10^3/uL; Eosinophils% 2.5 % (0-5); Hematocrit 42.3 % (40-54); Hemoglobin 14.5 g/dL (13.0-16.5); Lymphocyte # 1.24 X10^3/ul (4.0); Lymphocyte % 24.2 % (19-41); Mean Corp Hgb Conc 34.3 g/dL (32-36); Mean Corpuscular Hgb 32.3 pg (27.0-32.0); Mean Corpuscular Volume 94.2 fL (80-94); Mean Platelet Vol. 8.9 fl (6.2-12.0); Monocyte# 0.56 X10^3/uL; Monocyte% 10.9 % (0-10); NRBC Flagged by Analyzer 0 % (0-5); Neutrophil # 3.17 X10^3/uL (2.7-7.7); Neutrophil % 61.8 % (47-70); Platelet Count 281 K/mm3 (150-450); RBC Distribution Width CV 13.2 % (11.6-14.6); RBC Distribution Width SD 45.2 fl (35.1-43.9); Red Blood Count 4.49 M/mm3 (4.6-6.2); White Blood Count 5.1 K/mm3 (4.4-11.0)
[2020-07-14 10:06] LABS: ALB/GLOB Ratio 1.2 RATIO (0.9-2.4); AST(SGOT) 22 U/L (15-37); Alanine Aminotransfer ALT/SGPT 33 U/L (16-61); Albumin, Serum 4.1 g/dL (3.2-5.0); Alkaline Phosphatase 67 U/L (45-117); Anion Gap 7 (5-15); BUN 11 mg/dL (7-18); BUN/Creat Ratio 11.1 RATIO (10-20); Calcium,Total 9.5 mg/dL (8.5-10.1); Chloride 105 mmol/L (98-107); Creatinine, Serum 0.99 mg/dL (0.70-1.30); EST Glomerular Filtration Rate 80 mL/min (>60); Est Glom Filt Rate - Afr Amer 97 mL/min (>60); Globulin 3.4 g/dL (2.2-4.2); Glucose 104 mg/dL (74-106); Potassium 3.4 mmol/L (3.5-5.1); Protein, Total 7.5 g/dL (6.4-8.2); Sodium Level 140 mmol/L (136-145)
== END ==
PROVIDERS: PCP Internal Medicine; Referring Provider Internal Medicine Rheumatology; Visit Provider Internal Medicine Rheumatology
DX: M06.4 Inflammatory polyarthropathy (principal); M17.0 Bilateral primary osteoarthritis of knee; G56.01 Carpal tunnel syndrome, right upper limb; M21.40 Flat foot [pes planus] (acquired), unspecified foot; H35.30 Unspecified macular degeneration; I10 Essential (primary) hypertension; I49.3 Ventricular premature depolarization; G47.33 Obstructive sleep apnea (adult) (pediatric); I71.2 Thoracic aortic aneurysm, without rupture; Z79.899 Other long term (current) drug therapy
CPT/HCPCS: 36415; 80053; 85025

== ENCOUNTER → 2020-08-07 12:16 | Outpatient (CLI) | payer MEDICARE, SELFPAY ==
[2020-08-06 08:23] VITALS: BMI 34.4
--- NOTE | 2020-08-07 12:19 | US_ITS ---
STUDY: SUPERFICIAL ULTRASOUND - RIGHT AXILLA. REASON FOR EXAM: Male, 70 years old. Right axillary -- RT AXILLARY SWELLING AND PAIN TECHNIQUE: A superficial ultrasound was performed with real-time and static lim-scale imaging. COMPARISON: None. FINDINGS: The right axillary region was examined by ultrasound. No sonographic abnormality is seen. US/Ext Non Vasc Limited/Soft Tiss IMPRESSION: No sonographic abnormality is seen. Electronically Signed: Daniel Vences MD at 13:51 EST , Service support ,
== END ==
PROVIDERS: PCP Internal Medicine; Visit Provider Orthopaedic Surgery
DX: M79.89 Other specified soft tissue disorders (principal); M79.621 Pain in right upper arm
CPT/HCPCS: 76882

== ENCOUNTER 2020-08-08 05:54 | Day surgery (SDC) | payer MEDICARE, SELFPAY ==
[2020-08-06 08:23] VITALS: BMI 34.4
[2020-08-08] VITALS (7 sets, daily range): BP systolic 114–158; BP diastolic 77–82; PULSE 55–69; RESP 16–18; TEMP 36.1–36.4; O2SAT 95–98; BMI 33.8
--- NOTE | 2020-08-08 06:47 | HP_ITS ---
I have re-examined the patient. There are no clinical changes since date of exam. Intake Intake Visit Reasons: Right Hand Allergies No Known Allergies Allergy (Verified 07/14/20 09:55) [facility] Medical History Cardiac murmur (Acute) SHARITA on CPAP (Chronic) Essential hypertension (Chronic) Mobitz type 1 second degree atrioventricular block (Acute) Sinus bradycardia (Acute) Ventricular bigeminy (Acute) Premature ventricular contraction (Acute) Premature atrial contractions (Acute) Screen for colon cancer (Acute) Obesity (Chronic) Osteoarthritis (Chronic) Enlarged aorta (Chronic) Macular degeneration (Chronic) Hypertension (Inactive) Surgical History History of left heart catheterization (Resolved) history of left index finger (Resolved) Family History Father Heart disease Hypertension Arthritis Mother Hypertension Arthritis Social History (Updated 07/25/20 @ 10:[address] Rebeca Collins DO) Smoking Status: Never smoker alcohol intake: current alcohol intake frequency: holidays/special occasions only substance use type: does not use what type of physical activity do you participate in: other details: Stretching frequency: daily HPI Right Hand: Surgical H&P: Yes Details: Parts of this documentation were recorded by a scribe, this documentation accurately reflects the service provided and the decisions made by me, Dr. Rebeca Collins, 07/24/20 1020. Giuliano ROACH is a 70 year old M here today for F/U on right wrist after having ultrasound completed. Patient continues to have numbness in the 1st, 2nd and 3rd fingers. He also states that he started having pins and needles over the right axillary and right side of the chest and it wraps around the back. 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 He did see an ENT for the mass noted and dr. damon stated that since this does not bother the patient, no treatment needs to be completed. He states that the lipoma Ortho Exam General General: Yes no acute distress Neurologic: Yes alert, Yes oriented x3 Psychologic: Yes reasonable and appropriate Right Wrist/Hand Skin/Wound: Yes CDI, No Swelling, No Ecchymosis Right Wrist: Yes Durken's Test and Tinel's Motor: EPL: 5, FDP-2: 4, 1st Dorsal Interosseous: 5, APB: 4 Sensation: Radial: I, Ulnar: I, Median: D WRIST: thenar atrophy. Left Wrist/Hand Skin/Wound: No Swelling, No Ecchymosis Spine SPINE TESTING CERVICAL THORACIC LUMBAR Musculoskeletal Strength 0=absent - 5=normal Details: lipoma over cervical spine. Assessment & Plan Problems 1. Carpal tunnel syndrome of right wrist G56.01 Plan Patient educated that he does have right carpal tunnel syndrome. Treatment options are do nothing or injection or surgical release. Patient wishes to proceed with right carpal tunnel release. Reviewed the pre-operative plans with the patient. Risks and benefits of the procedure were fully explained, including but not limited to infection, neurovascular injury, continued pain, arthritis, stiffness, need for further surgery, re-injury, DVT, PE, general risks of anesthesia, and loss of limb or life. The patient understands all the risks and does wish to proceed with written consent for right carpal tunnel release. We will order a soft tissue ultra sound of the right axillary for the increased swelling noted. Follow up 2 weeks post op or sooner if pain, swelling, numbness or associated symptoms, or concerns develop. All questions answered. Patient in agreement of plan. Plan Detail Goals Decrease pain Improve ROM Decrease radiculopathy Improve ability to perform ADLs Barriers Anterolisthesis of L4/L5 DDD:cerv/thor/lumbar Coding Level of Care Code Off vis,est,level 4 Diagnoses Carpal tunnel syndrome of right wrist G56.01 COVID (Procedure Consent) Procedure Criteria Procedure Criteria: Yes Elective The surgeon/proceduralist and patient have discussed in detail the risk of exposure to and/or potential harm posed by the COVID-19 virus with having a surgery/procedure at this time versus the risk of? delaying the surgery/procedure. It is not possible to know either the risk of delaying the surgery or procedure or chance of getting an infection with perfect accuracy, but a joint decision was made between the patient and the surgeon/proceduralist ?to proceed at this time with the scheduled surgery/procedure as indicated on the consent form.
[2020-08-08] MEDS: Cefazolin 2 GM in 0.9% Normal Saline 100 ML IV (07:25)
--- NOTE | 2020-08-08 07:37 | OP.PCM_ITS ---
Report of Operation Date of Procedure: 08/08/20 Pre-Operative Diagnosis: right carpal tunnel syndrome Post-Operative Diagnosis: same Surgery/Procedure Performed:: right carpal tunnel release Anesthesiologist: Lamonte Wu Estimated Blood Loss (mL): none Fluids Replaced: 600cc lr Description of Procedure: Preoperative note Patient is a 70 year old patient with nerve conduction study confirming carpal tunnel syndrome. Patient failed conservative treatment for carpal tunnel elected proceed with right carpal tunnel release. Risks benefits and alternatives surgery discussed with patient. Risks including but not limited to blood loss, blood clot, infection, neurovascular injury, failure procedure, loss of life and loss of limb. Patient is aware like proceed with right carpal tunnel release. Operative note Patient seen and examined preoperative holding area. right hand was marked. History and physical and consent reviewed. Patient was brought to the operating room placed supine on the operating table. Sign in, anesthesia, antibiotics were administered. right upper extremity was prepped and draped after Gurinder block was initiated. All bony prominences well-padded SCDs placed on bilateral lower extremities. We marked out our incisions for our carpal tunnel release at the intersection of Balta's line in the fourth ray flexed. We extended about a centimeter and a half. Timeout was performed. We then checked ensure that the [place] block was working with pickups which it was not so we performed a local block of 10cc 1% lidocaine. We then used a 15 blade to make a skin incision. We then dissected down tenotomy syllable of the transverse carpal ligament. We then used a new 15 blade cut through the transverse carpal ligament down to the level of the median nerve. We then further released the median nerve the combination of the 15 blade and tenotomies. The nerve was grayish in color and adherent to the transverse carpal ligament volarly. We released the transverse carpal ligament distally to the fat pad and then proximally under standard technique. We then palpated to ensure that we released all of the transverse carpal ligament which we did. We irrigated the incision with copious amounts of sterile saline. All bleeders were coagulated. The incision was closed with interrupted 4-0 nylon stitches. Tourniquet was deflated for total working time of 10 minutes. Patient tolerated procedure well there were no complications. Patient transferred to recovery room in stable condition. Postoperative note Hospital pharmacy has prescription Leave dressing clean dry and intact Follow-up in 2 weeks Call with concerns This note was generated with [email or web address] software. It may contain incorrect words, spelling, and punctuation that were not noted in checking the note before signing
--- NOTE | 2020-08-08 07:37 | PCM.DC.ORTHO ---
Discharge Diet: No Restrictions - leave dressing on until seen in postop clinic in 10-14 days for suture removal, keep dressing clean, dry, intact; change dressing if gets wet/dirty, call with concerns Discharge Activity: May Not Drive May shower in (days): 1 Ice area for (Minutes): 20 - Every hour while awake. Weight Bearing Status: Weight bearing as tolerated Keep extremity elevated above heart level: Operative Extremity Call your doctor if your incision/area has: Continuous Slow Oozing, Sudden Increased Bleeding, Increased Pain/ Swelling, Increased Redness, Foul Smelling Discharge Call your doctor if you observe: Fever of 101 or Higher, Coldness, Increased Pain, Numbness or Tingling, Change in Color, Calf discomfort Allergies/Adverse Reactions: Allergies No Known Allergies Allergy (Verified 08/04/20 10:53) Medications to take at Discharge Acetaminophen [Tylenol Extra Strength] 500 - 1,000 mg PO Q6H PRN PRN 10/14/17 Multivitamin [Multiple Vitamins] 1 ea PO DAILY 10/14/17 aspirin 81 mg tablet,delayed release 81 mg PO QDAY tab 04/11/18 folic acid 1 mg tablet 1 mg PO BID tab 01/15/19 prednisone 10 mg tablet 10 mg PO DAILY PRN 01/15/19 glucosamine HCl 500 mg tablet 1,000 mg PO DAILY tab 04/16/19 diphenhydramine HCl 25 mg capsule 25 mg PO QHS PRN 04/23/19 potassium 99 mg tablet 198 mg PO DAILY tab 04/23/19 felodipine 10 mg tablet,extended release 24 hr 10 mg PO QDAY #90 tab 08/07/19 sulfasalazine 500 mg tablet 0.5 g PO BID tab 12/11/19 hydrochlorothiazide 25 mg tablet 25 mg PO DAILY #90 tab 12/12/19 losartan 100 mg tablet 100 mg PO DAILY #90 tab 12/12/19 leucovorin calcium 15 mg tablet 15 mg PO .q weekly tab 03/24/20 methotrexate sodium 2.5 mg tablet 20 mg PO QWEEK tab 03/24/20 clonidine HCl 0.2 mg tablet 0.2 mg PO BID #180 tab 06/23/20 cyanocobalamin (vitamin B-12) 1,000 mcg tablet 1,000 mcg PO DAILY 06/27/20 Cholecalciferol (Vitamin D3) [Vitamin D3] 25 mcg PO DAILY 08/01/20 Vitamin B Complex 1 ea PO DAILY 08/01/20 Zinc 50 mg PO DAILY 08/01/20 amitriptyline 50 mg tablet 50 mg PO QHS #90 tab 08/04/20 baclofen 10 mg tablet 10 mg PO TID #90 tab 08/04/20 minoxidil 10 mg tablet 10 mg PO QDAY #60 tab 08/04/20 Hydrocodone Bitart/Apap 5-325 [[place] 5MG-325MG] 1 - 2 tab PO Q6H PRN PRN 5 Days #20 tab 08/08/20 The following prescriptions were given: Hydrocodone Bitart/Apap 5-325 [[place] 5MG-325MG] 1 - 2 tab PO Q6H PRN PRN 5 Days #20 tab PRN Reason: Pain Transmission Status: Sent to [facility] Primary Care Physician: Delgado Garcia MD [Primary Care Provider] - Test Results: Test results from this visit will be discussed in further detail at your follow-up appointment, if applicable. Please Follow Up With: Rebeca Collins, DO - [phone]
[2020-08-08] MEDS: Mupirocin Ointment 22gm Tube 1 APPLIC (07:55)
[2020-08-08] MEDS: Bupivacaine 0.25% 30 ML Vial (08:07)
== END 2020-08-08 09:39 | disposition home or self-care (01) ==
LOC: SDC 05:54 → AC 05:55
PROVIDERS: PCP Internal Medicine; Referring Provider Orthopaedic Surgery; Visit Provider Orthopaedic Surgery
PROC: (CPT 64721; principal; 2020-08-08 07:15)
DX: G56.01 Carpal tunnel syndrome, right upper limb (principal); I10 Essential (primary) hypertension; M19.90 Unspecified osteoarthritis, unspecified site; G47.33 Obstructive sleep apnea (adult) (pediatric); Z20.822 Contact with and (suspected) exposure to COVID-19; Z79.899 Other long term (current) drug therapy
CPT/HCPCS: 64721; 87426; C9803; J7120; J2405

== ENCOUNTER → 2020-09-08 09:07 | Outpatient (CLI) | payer MEDICARE, SELFPAY ==
[2020-09-08 08:30] VITALS: BMI 35.3
[2020-09-08 12:38] LABS: Anion Gap 5 (5-15); BUN 13 mg/dL (7-18); BUN/Creat Ratio 14.7 RATIO (10-20); Calcium,Total 9.7 mg/dL (8.5-10.1); Chloride 108 mmol/L (98-107); Creatinine, Serum 0.89 mg/dL (0.70-1.30); EST Glomerular Filtration Rate 91 mL/min (>60); Est Glom Filt Rate - Afr Amer 110 mL/min (>60); Glucose 98 mg/dL (74-106); Potassium 3.7 mmol/L (3.5-5.1); Sodium Level 141 mmol/L (136-145)
== END ==
PROVIDERS: PCP Internal Medicine; Referring Provider Internal Medicine; Visit Provider Internal Medicine
DX: I10 Essential (primary) hypertension (principal)
CPT/HCPCS: 36415; 80048

== ENCOUNTER → 2020-10-03 13:11 | Outpatient (CLI) | payer MEDICARE, SELFPAY ==
[2020-09-08 08:30] VITALS: BMI 35.3
--- NOTE | 2020-10-03 13:12 | MRI_ITS ---
STUDY: MRI THORACIC SPINE WITHOUT CONTRAST REASON FOR EXAM: Male, 70 years old. painStinging,burning right back axillary and right chest TECHNIQUE: Standardized fat and water weighted pulse sequences were obtained in the sagittal and axial planes. COMPARISON: 07 July 2020 FINDINGS: Normal kyphosis of the thoracic spine. There is no substantial scoliosis. T1-2, T2-3, T3-4, T4-5, T5-6, T6-7, T7-8, T8-9, T9-10, T10-11, T11-12: Normal endplates. Normal disc hydration, heights and morphology of the corresponding intervertebral discs. Normal central canal and intervertebral neural foramina at the corresponding levels. There minor expected age-related changes. Normal visualized thoracic cord. Normal conus medullaris that terminates at the appropriate level above L2. The soft tissue structures are unremarkable. MRI/Spine Thoracic (Routine) IMPRESSION: Unremarkable thoracic spine. Canal, normal cord. Electronically Signed: Erick Delarosa MD at 19:51 EDT Tel , Service support ,
== END ==
PROVIDERS: PCP Internal Medicine; Referring Provider Orthopaedic Surgery; Visit Provider Orthopaedic Surgery
DX: M51.34 Other intervertebral disc degeneration, thoracic region (principal); M99.02 Segmental and somatic dysfunction of thoracic region; I71.2 Thoracic aortic aneurysm, without rupture
CPT/HCPCS: 72146

== ENCOUNTER → 2020-10-06 08:40 | Outpatient (CLI) | payer MEDICARE, SELFPAY ==
[2020-10-06 09:53] LABS: Absolute Neutrophil Count 2.4 X10^3/uL (2.0-7.7); Basophil# 0.02 X10^3/uL; Basophil% 0.5 % (0-1); Eosinophil# 0.11 X10^3/uL; Eosinophils% 2.6 % (0-5); Hematocrit 40.8 % (40-54); Hemoglobin 14.1 g/dL (13.0-16.5); Lymphocyte % 23.7 % (19-41); Mean Corp Hgb Conc 34.6 g/dL (32-36); Mean Corpuscular Hgb 32.3 pg (27.0-32.0); Mean Corpuscular Volume 93.4 fL (80-94); Mean Platelet Vol. 9.3 fl (6.2-12.0); Monocyte# 0.65 X10^3/uL; Monocyte% 15.4 % (0-10); NRBC Flagged by Analyzer 0 % (0-5); Neutrophil # 2.43 X10^3/uL (2.7-7.7); Neutrophil % 57.6 % (47-70); Platelet Count 269 K/mm3 (150-450); RBC Distribution Width CV 13.3 % (11.6-14.6); RBC Distribution Width SD 45.6 fl (35.1-43.9); Red Blood Count 4.37 M/mm3 (4.6-6.2); White Blood Count 4.2 K/mm3 (4.4-11.0)
[2020-10-06 10:11] LABS: ALB/GLOB Ratio 1.2 RATIO (0.9-2.4); AST(SGOT) 32 U/L (15-37); Alanine Aminotransfer ALT/SGPT 45 U/L (16-61); Albumin, Serum 4.1 g/dL (3.2-5.0); Alkaline Phosphatase 67 U/L (45-117); Anion Gap 10 (5-15); BUN 15 mg/dL (7-18); BUN/Creat Ratio 15.4 RATIO (10-20); Calcium,Total 9.4 mg/dL (8.5-10.1); Chloride 106 mmol/L (98-107); Creatinine, Serum 0.97 mg/dL (0.70-1.30); EST Glomerular Filtration Rate 82 mL/min (>60); Est Glom Filt Rate - Afr Amer 99 mL/min (>60); Globulin 3.4 g/dL (2.2-4.2); Glucose 103 mg/dL (74-106); Potassium 3.4 mmol/L (3.5-5.1); Protein, Total 7.5 g/dL (6.4-8.2); Sodium Level 145 mmol/L (136-145)
== END ==
PROVIDERS: PCP Internal Medicine; Referring Provider Internal Medicine Rheumatology; Visit Provider Internal Medicine Rheumatology
DX: M06.4 Inflammatory polyarthropathy (principal); G56.01 Carpal tunnel syndrome, right upper limb; M17.0 Bilateral primary osteoarthritis of knee; M21.40 Flat foot [pes planus] (acquired), unspecified foot; I71.2 Thoracic aortic aneurysm, without rupture; H35.30 Unspecified macular degeneration; I10 Essential (primary) hypertension; I49.3 Ventricular premature depolarization; G47.33 Obstructive sleep apnea (adult) (pediatric); Z79.899 Other long term (current) drug therapy
CPT/HCPCS: 36415; 80053; 85025

== ENCOUNTER → 2020-10-16 07:15 | Outpatient (CLI) | payer MEDICARE, SELFPAY ==
[2020-10-09 13:31] VITALS: BMI 35.3
--- NOTE | 2020-10-16 07:18 | NM_ITS ---
CLINICAL: 70-year-old male with reported history of right rib-chest wall pain. WHOLE BODY 99m Tc MDP RADIONUCLIDE BONE SCINTIGRAPHY COMPARISON: None available FINDINGS: Following the intravenous administration of 26.9 mCi of 99m Tc MDP, whole body bone images reveal: 1. Increased radiopharmaceutical concentration is defined in the acromioclavicular, sternoclavicular and glenohumeral compartments of both shoulders, lower cervical spine posteriorly on the right, fifth lumbar vertebra posteriorly on the right, bilateral elbows, the right wrist, hands bilaterally, patellofemoral and medial tibial compartments of both knees, posterior compartment of the right-left ankles, the left and right midfoot, pubic symphysis. 2. The remaining skeletal structures are scintigraphically unremarkable with normal-appearing renal images and urinary bladder activity identified. Enhanced tracer distribution is defined in the bilateral maxilla and mandible most consistent with periostitis and/or periodontal disease. NM/Bone Scan Whole Body IMPRESSION: 1. The increase in radiopharmaceutical concentration identified in the bilateral shoulders, cervical and lumbar spine, right and left elbows, right wrist, both hands, knees bilaterally, bilateral ankle articulations, left and right midfoot and pubic symphysis is most consistent with degenerative arthritis. Plain film radiography correlation may be of benefit in the region of the pubic symphysis. 2. Meticulous attention paid to the right anterior, lateral and posterior chest wall demonstrates no evidence of abnormal increased tracer uptake on the current examination. Electronically Signed: Ramesh Taylor DO at 22:43 EDT Tel , Service support ,
== END ==
PROVIDERS: PCP Internal Medicine; Referring Provider Orthopaedic Surgery; Visit Provider Orthopaedic Surgery
DX: M51.34 Other intervertebral disc degeneration, thoracic region (principal); M43.10 Spondylolisthesis, site unspecified; M89.9 Disorder of bone, unspecified
CPT/HCPCS: 78306; A9503

== ENCOUNTER → 2020-12-22 15:10 | Outpatient (CLI) | payer MEDICARE, SELFPAY ==
[2020-12-17 10:56] VITALS: BMI 34.5
[2020-12-22 17:44] LABS: Absolute Neutrophil Count 2.7 X10^3/uL (2.0-7.7); Basophil# 0.02 X10^3/uL; Basophil% 0.5 % (0-1); Eosinophil# 0.08 X10^3/uL; Eosinophils% 1.8 % (0-5); Hematocrit 42.2 % (40-54); Hemoglobin 14.6 g/dL (13.0-16.5); Lymphocyte % 29.3 % (19-41); Mean Corp Hgb Conc 34.6 g/dL (32-36); Mean Corpuscular Hgb 32.7 pg (27.0-32.0); Mean Corpuscular Volume 94.4 fL (80-94); Mean Platelet Vol. 9.8 fl (6.2-12.0); Monocyte# 0.37 X10^3/uL; Monocyte% 8.4 % (0-10); NRBC Flagged by Analyzer 0 % (0-5); Neutrophil # 2.65 X10^3/uL (2.7-7.7); Neutrophil % 59.8 % (47-70); Platelet Count 258 K/mm3 (150-450); RBC Distribution Width CV 13.4 % (11.6-14.6); RBC Distribution Width SD 46.5 fl (35.1-43.9); Red Blood Count 4.47 M/mm3 (4.6-6.2); White Blood Count 4.4 K/mm3 (4.4-11.0)
[2020-12-22 18:45] LABS: ALB/GLOB Ratio 1.3 RATIO (0.9-2.4); AST(SGOT) 30 U/L (15-37); Alanine Aminotransfer ALT/SGPT 40 U/L (16-61); Albumin, Serum 4.4 g/dL (3.2-5.0); Alkaline Phosphatase 68 U/L (45-117); Anion Gap 10 (5-15); BUN 12 mg/dL (7-18); BUN/Creat Ratio 12.9 RATIO (10-20); Calcium,Total 9.1 mg/dL (8.5-10.1); Chloride 107 mmol/L (98-107); Creatinine, Serum 0.93 mg/dL (0.70-1.30); EST Glomerular Filtration Rate 86 mL/min (>60); Est Glom Filt Rate - Afr Amer 104 mL/min (>60); Globulin 3.4 g/dL (2.2-4.2); Glucose 105 mg/dL (74-106); Potassium 3.5 mmol/L (3.5-5.1); Protein, Total 7.8 g/dL (6.4-8.2); Sodium Level 142 mmol/L (136-145)
== END ==
PROVIDERS: PCP Internal Medicine; Referring Provider Internal Medicine Rheumatology; Visit Provider Internal Medicine Rheumatology
DX: M06.4 Inflammatory polyarthropathy (principal); G56.01 Carpal tunnel syndrome, right upper limb; M17.0 Bilateral primary osteoarthritis of knee; M21.40 Flat foot [pes planus] (acquired), unspecified foot; H35.30 Unspecified macular degeneration; I10 Essential (primary) hypertension; I49.3 Ventricular premature depolarization; G47.33 Obstructive sleep apnea (adult) (pediatric); I71.2 Thoracic aortic aneurysm, without rupture; Z79.899 Other long term (current) drug therapy
CPT/HCPCS: 36415; 80053; 85025

== ENCOUNTER → 2021-03-16 08:39 | Outpatient (CLI) | payer MEDICARE, SELFPAY ==
[2021-03-16 09:56] LABS: Absolute Lymphocyte Count 1.26 X10^3/uL (0.83-4.51); Absolute Neutrophil Count 2.6 X10^3/uL (2.0-7.7); Basophil# 0.03 X10^3/uL; Basophil% 0.7 % (0-1); Eosinophil# 0.13 X10^3/uL; Eosinophils% 2.9 % (0-5); Hematocrit 40.6 % (40-54); Lymphocyte # 1.26 X10^3/ul (0.83-4.51); Lymphocyte % 28.1 % (19-41); Mean Corp Hgb Conc 34.5 g/dL (32-36); Mean Corpuscular Hgb 32.2 pg (27.0-32.0); Mean Corpuscular Volume 93.3 fL (80-94); Mean Platelet Vol. 8.9 fl (6.2-12.0); Monocyte# 0.48 X10^3/uL; Monocyte% 10.7 % (0-10); NRBC Flagged by Analyzer 0 % (0-5); Neutrophil # 2.57 X10^3/uL (2.7-7.7); Neutrophil % 57.4 % (47-70); Platelet Count 238 K/mm3 (150-450); RBC Distribution Width CV 13.4 % (11.6-14.6); RBC Distribution Width SD 45.6 fl (35.1-43.9); Red Blood Count 4.35 M/mm3 (4.6-6.2); White Blood Count 4.5 K/mm3 (4.4-11.0)
[2021-03-16 10:28] LABS: ALB/GLOB Ratio 1.1 RATIO (0.9-2.4); AST(SGOT) 28 U/L (15-37); Alanine Aminotransfer ALT/SGPT 38 U/L (16-61); Albumin, Serum 4.1 g/dL (3.2-5.0); Alkaline Phosphatase 65 U/L (45-117); Anion Gap 9 (5-15); BUN 19 mg/dL (7-18); BUN/Creat Ratio 20.7 RATIO (10-20); Calcium,Total 9.6 mg/dL (8.5-10.1); Chloride 108 mmol/L (98-107); Creatinine, Serum 0.92 mg/dL (0.70-1.30); EST Glomerular Filtration Rate 87 mL/min (>60); Est Glom Filt Rate - Afr Amer 105 mL/min (>60); Globulin 3.7 g/dL (2.2-4.2); Glucose 102 mg/dL (74-106); Potassium 3.6 mmol/L (3.5-5.1); Protein, Total 7.8 g/dL (6.4-8.2); Sodium Level 142 mmol/L (136-145)
== END ==
PROVIDERS: PCP Internal Medicine; Referring Provider Internal Medicine Rheumatology; Visit Provider Internal Medicine Rheumatology
DX: M06.4 Inflammatory polyarthropathy (principal); G56.01 Carpal tunnel syndrome, right upper limb; M17.0 Bilateral primary osteoarthritis of knee; M21.40 Flat foot [pes planus] (acquired), unspecified foot; I10 Essential (primary) hypertension; H35.30 Unspecified macular degeneration; I49.3 Ventricular premature depolarization; I71.2 Thoracic aortic aneurysm, without rupture; G47.33 Obstructive sleep apnea (adult) (pediatric); Z79.899 Other long term (current) drug therapy
CPT/HCPCS: 36415; 80053; 85025

== ENCOUNTER → 2021-04-29 08:37 | Outpatient (CLI) | payer MEDICARE, SELFPAY ==
[2021-04-29 10:40] LABS: Cholesterol 188 mg/dL (200); High Density Lipoprotein 38 mg/dL; Triglycerides 87 mg/dL; Very Low Density Lipoprotein 17 mg/dL (5-40)
[2021-04-29 10:54] LABS: Vitamin B12 1017 pg/mL (211-911)
[2021-05-01 16:08] LABS: Free Kappa Light Chains 15.2 mg/L (3.3-19.4); Free Lambda Light Chains 8.4 mg/L (5.7-26.3)
== END ==
PROVIDERS: PCP Internal Medicine; Referring Provider Psychiatry & Neurology Neurology; Visit Provider Psychiatry & Neurology Neurology
DX: I10 Essential (primary) hypertension (principal); G62.9 Polyneuropathy, unspecified
CPT/HCPCS: 36415; 80061; 82607; 82746; 83883; 84443

== ENCOUNTER → 2021-05-05 09:11 | Outpatient (CLI) | payer MEDICARE, SELFPAY ==
[2021-05-07 14:09] LABS: Albumin 3.9 g/dL (2.9-4.4); Alpha-1-Globulins 0.1 g/dL (0.0-0.4); Alpha-2-Globulins 0.7 g/dL (0.4-1.0); Gamma Globulin 1.1 g/dL (0.4-1.8); Immunoglobulin A 243 mg/dL (61-437); Immunoglobulin G 1119 mg/dL (603-1613); Immunoglobulin M 94 mg/dL (20-172)
== END ==
PROVIDERS: PCP Internal Medicine; Referring Provider Psychiatry & Neurology Neurology; Visit Provider Psychiatry & Neurology Neurology
DX: G62.9 Polyneuropathy, unspecified (principal)
CPT/HCPCS: 82784; 84165; 86334; 86335

== ENCOUNTER → 2021-05-13 08:53 | Outpatient (CLI) | payer MEDICARE, SELFPAY ==
[2021-05-13 11:06] LABS: T4 Free Direct 0.94 ng/dL (0.76-1.46); Thyroid Stim Hormone (TSH) 6.78 uIU/mL (0.358-3.74)
== END ==
PROVIDERS: PCP Internal Medicine; Referring Provider Internal Medicine; Visit Provider Internal Medicine
DX: R94.6 Abnormal results of thyroid function studies (principal)
CPT/HCPCS: 36415; 84439; 84443

== ENCOUNTER 2021-06-15 12:40 | Outpatient (CLI) | payer MEDICARE, SELFPAY ==
--- NOTE | 2021-06-15 12:45 | RAD_ITS ---
STUDY: X-RAY - LUMBAR SPINE REASON FOR EXAM: Male, 70 years old. Other intervertebral disc degeneration, lumbosacral region TECHNIQUE: 2 view(s) of the lumbar spine were obtained. COMPARISON: Comparison is made with prior study dated 07/21/2020. FINDINGS: Normal lumbar lordosis. There is no substantial scoliosis. Grade 1 anterolisthesis of L4 on L5. Normal vertebral bodies and endplates. There is multi-level degenerative disc disease with multi-level disc space narrowing. Facet joint osteoarthritis. There is atherosclerotic calcification of the abdominal aorta without a demonstrated aneurysm. RAD/Lumbar Spine 2 or 3 Views IMPRESSION: Degenerative changes of the spine, as detailed above. Grade 1 anterior listhesis of L4 on L5 most likely secondary to facet joint osteoarthritis. Electronically Signed: Daniel Vences MD at 15:49 EST , Service support ,
== END 2021-06-15 23:59 | disposition short-term general hospital (02) ==
LOC: RAD 12:44
PROVIDERS: PCP Internal Medicine; Referring Provider Anesthesiology Pain Medicine; Visit Provider Anesthesiology Pain Medicine
DX: M51.37 Other intervertebral disc degeneration, lumbosacral region (principal)
CPT/HCPCS: 72100

== ENCOUNTER 2021-06-16 08:04 | Outpatient (CLI) | payer MEDICARE, SELFPAY ==
[2021-06-16 10:27] LABS: Thyroid Stim Hormone (TSH) 4.78 uIU/mL (0.358-3.74)
== END 2021-06-16 23:59 | disposition short-term general hospital (02) ==
LOC: MTLAB 08:05
PROVIDERS: PCP Internal Medicine; Referring Provider Internal Medicine; Visit Provider Internal Medicine
DX: E03.8 Other specified hypothyroidism (principal)
CPT/HCPCS: 36415; 84443

== ENCOUNTER 2021-06-22 15:01 | Outpatient (CLI) | payer MEDICARE, SELFPAY ==
[2021-06-22 17:53] LABS: Absolute Lymphocyte Count 1.39 X10^3/uL (0.83-4.51); Absolute Neutrophil Count 5.2 X10^3/uL (2.0-7.7); Basophil# 0.02 X10^3/uL; Basophil% 0.3 % (0-1); Eosinophil# 0.07 X10^3/uL; Hematocrit 41.4 % (40-54); Hemoglobin 14.3 g/dL (13.0-16.5); Lymphocyte # 1.39 X10^3/ul (0.83-4.51); Mean Corp Hgb Conc 34.5 g/dL (32-36); Mean Corpuscular Hgb 31.7 pg (27.0-32.0); Mean Corpuscular Volume 91.8 fL (80-94); Mean Platelet Vol. 9.5 fl (6.2-12.0); Monocyte# 0.62 X10^3/uL; Monocyte% 8.5 % (0-10); NRBC Flagged by Analyzer 0 % (0-5); Neutrophil % 71.1 % (47-70); Platelet Count 265 K/mm3 (150-450); RBC Distribution Width CV 14.1 % (11.6-14.6); RBC Distribution Width SD 47.3 fl (35.1-43.9); Red Blood Count 4.51 M/mm3 (4.6-6.2); White Blood Count 7.3 K/mm3 (4.4-11.0)
[2021-06-22 18:25] LABS: ALB/GLOB Ratio 1.4 RATIO (0.9-2.4); AST(SGOT) 24 U/L (15-37); Alanine Aminotransfer ALT/SGPT 35 U/L (16-61); Albumin, Serum 4.4 g/dL (3.2-5.0); Alkaline Phosphatase 56 U/L (45-117); Anion Gap 8 (5-15); BUN 19 mg/dL (7-18); BUN/Creat Ratio 21.6 RATIO (10-20); Calcium,Total 9.6 mg/dL (8.5-10.1); Chloride 110 mmol/L (98-107); Creatinine, Serum 0.88 mg/dL (0.70-1.30); EST Glomerular Filtration Rate 91 mL/min (>60); Est Glom Filt Rate - Afr Amer 110 mL/min (>60); Globulin 3.2 g/dL (2.2-4.2); Glucose 86 mg/dL (74-106); Potassium 3.4 mmol/L (3.5-5.1); Protein, Total 7.6 g/dL (6.4-8.2); Sodium Level 143 mmol/L (136-145)
== END 2021-06-22 23:59 | disposition short-term general hospital (02) ==
LOC: MTLAB 15:02
PROVIDERS: PCP Internal Medicine; Referring Provider Internal Medicine Rheumatology; Visit Provider Internal Medicine Rheumatology
DX: M06.4 Inflammatory polyarthropathy (principal); I71.2 Thoracic aortic aneurysm, without rupture; Z79.899 Other long term (current) drug therapy; M15.9 Polyosteoarthritis, unspecified; M65.311 Trigger thumb, right thumb; M17.0 Bilateral primary osteoarthritis of knee; M21.40 Flat foot [pes planus] (acquired), unspecified foot; H35.30 Unspecified macular degeneration; I10 Essential (primary) hypertension; I49.3 Ventricular premature depolarization; G47.33 Obstructive sleep apnea (adult) (pediatric)
CPT/HCPCS: 36415; 80053; 85025

== ENCOUNTER 2021-07-01 08:11 | Outpatient (CLI) | payer MEDICARE, SELFPAY ==
--- NOTE | 2021-07-01 12:39 | NEURO ---
NCS and/or EMG Patient Report Ordering Doctor: Perry Najera DATE OF SERVICE: 07/01/21 Patient presents for electrodiagnostic testing of the right upper limb. He has continued numbness and pain in the first 3 digits of the right hand. He underwent previous carpal tunnel release without resolution of symptoms. Electrodiagnostic findings: Right median motor nerve demonstrates prolonged distal latency with reduced amplitude and reduced conduction velocity. Comparison is made to previous study from April 2020 which shows marked improvement in both conduction velocity, amplitude and distal latency. Right median sensory latency at the wrist and palm cannot be obtained. Normal ulnar and radial sensory responses. Normal right ulnar motor response with normal conduction across the elbow. Normal median and ulnar F waves. On needle EMG, 1+ fibrillations noted the right abductor pollicis brevis. Ulnar muscles tested showed no evidence of denervation with normal motor unit action potentials. Electrodiagnostic impression: This is an abnormal study in the right upper limb 1. Electrodiagnostic findings are significant for right sided median mononeuropathy. This is consistent with a moderate right carpal tunnel syndrome. However, there is significant improvement from her previous study done in April 2020, which demonstrated an advanced right median neuropathy 2. No electrodiagnostic evidence is noted for cervical radiculopathy.
== END 2021-07-01 23:59 | disposition short-term general hospital (02) ==
LOC: PSN 08:12
PROVIDERS: PCP Internal Medicine; Referring Provider Psychiatry & Neurology Neurology; Visit Provider Psychiatry & Neurology Neurology
DX: G56.01 Carpal tunnel syndrome, right upper limb (principal); G62.9 Polyneuropathy, unspecified
CPT/HCPCS: 95886; 95910

== ENCOUNTER 2021-07-13 07:44 | Outpatient (CLI) | payer MEDICARE, SELFPAY ==
--- NOTE | 2021-07-13 07:46 | ECHOD_ITS ---
Reason For Study: Dilated AO Root Procedure This was a 2D Doppler, Color Flow transthoracic echocardiogram. The exam was of adequate technical quality. Exam performed in department. Left Ventricle Normal LV size. Moderate concentric left ventricular hypertrophy. Left ventricular systolic function is normal. The estimated ejection fraction is 60 %. Diastolic function is indeterminate. No regional wall motion abnormalities noted. Right Ventricle Normal RV size. Normal systolic function. Atria Normal left atrium. Normal right atrium. No doppler evidence for ASD. Mitral Valve There is no mitral annular calcification. Normal mitral valve. Mild (1+) mitral valve insufficiency. Tricuspid Valve Normal tricuspid valve. Trivial tricuspid valve insufficiency. Unable to estimate RV systolic pressure due to insufficient tricuspid regurgitant envelope. Aortic Valve Trisinus/trileaflet aortic valve. Normal aortic valve. Pulmonic Valve The pulmonic valve is not well visualized. Mild (1+) pulmonic valve insufficiency. Great Vessels Moderately dilated aortic root. Pericardium/Pleural No pericardial effusion. MMode/2D Measurements & Calculations LVIDd: 5.3 cm IVSd: 1.7 cm Ao root diam: 5.0 cm LVIDs: 3.1 cm LVPWd: 1.7 cm LA dimension: 3.9 cm RVDd: 3.5 cm FS: 42.0 % LAV(MOD-bp): 58.0 ml LA A4 area: 18.5 cm2 RA A4 area: 19.8 cm2 LAV(MOD-bp) Indexed: 26.2 ml/m2 LAV(MOD-sp2): 65.3 ml LAV(MOD-sp4): 50.4 ml Time Measurements MV dec time: 0.39 sec Doppler Measurements & Calculations MV E max roger: 60.2 cm/sec Lat Peak E' Roger: 8.6 cm/sec Med Peak E' Roger: 5.4 cm/sec MV A max roger: 81.9 cm/sec E/E' lat: 7.0 E/E' med: 11.1 MV E/A: 0.74 MV V2 max: 89.3 cm/sec MV P1/2t max roger: 66.9 cm/sec Ao V2 max: 122.4 cm/sec MV max P.2 mmHg MV P1/2t: 53.2 msec Ao max P.0 mmHg MV V2 mean: 47.0 cm/sec MV dec slope: 367.9 cm/sec2 MV mean P.1 mmHg MVA(P1/2t): 4.1 cm2 MV V2 VTI: 26.8 cm LV V1 max: 107.1 cm/sec PA V2 max: 94.4 cm/sec PI end-d roger: 137.7 cm/sec LV V1 max P.6 mmHg ECHO/Echo Complete Interpretation Summary Left ventricular systolic function is normal. The estimated ejection fraction is 60 %. Moderate concentric left ventricular hypertrophy. Mild (1+) mitral valve insufficiency. Trivial tricuspid valve insufficiency. Mild (1+) pulmonic valve insufficiency. Moderately dilated aortic root. (5.0 cm) Unable to estimate RV systolic pressure due to insufficient tricuspid regurgita nt envelope. Diastolic function is indeterminate. Ordering Physician: Rom Thompson Physician: Delgado Garcia Performed By: Robin Silva RCS
== END 2021-07-13 23:59 | disposition home or self-care (01) ==
LOC: CVS 07:45
PROVIDERS: PCP Internal Medicine; Referring Provider Internal Medicine Cardiovascular Disease; Visit Provider Internal Medicine Cardiovascular Disease
DX: Z12.11 Encounter for screening for malignant neoplasm of colon (principal)
CPT/HCPCS: 93306

== ENCOUNTER 2021-07-23 16:46 | Outpatient (CLI) | payer MEDICARE, SELFPAY ==
--- NOTE | 2021-07-23 16:49 | CT_ITS ---
STUDY: CT CHEST WITH CONTRAST REASON FOR EXAM: Male, 71 years old. Thoracic aortic aneurysm RADIATION DOSAGE (If Supplied By Facility): CTDIvol = ( 19.07 ) mGy, DLP = ( 664.37 ) mGycm TECHNIQUE: Transaxial imaging was performed following intravenous administration of IV 100mL Isovue-300. Multiplanar coronal and sagittal images were reformatted. Individualized dose optimization techniques were used for this CT. COMPARISON: CT chest July 07, 2020, July 27, 2017. FINDINGS: There is increased AP diameter of the chest. There is a left lower lobe pleural-based nodule measuring 5.3 mm. This is stable when compared to prior study. There is an additional smaller nodule measuring 3.4 mm stable since prior study. There is no new focal consolidation pleural effusion or pulmonary edema. There is no demonstrated pleural abnormality. There is mild to moderate cardiac enlargement there are coronary calcifications. There are multiple reactive appearing mediastinal lymph nodes stable since prior study seen in the AP window measuring 1.4 cm, 1.3 cm, left of midline measuring 1.3 cm. There is a lymph node in the right midline precarinal region measuring 1.9 cm. These all appear stable since prior study. There is a right hilar lymph node measuring 2.2 x 1.6 cm stable since prior study. Normal enhanced pulmonary arteries. The ascending thoracic aorta measures 4 x 4.4 cm stable since prior study. Aorta tapers towards the arch. The descending thoracic aorta is partially calcified measuring 2.1 x 3.0 cm. There are multi-level degenerative changes of the thoracic spine. The liver is enlarged and fatty infiltrated. There is a distended appearance of the stomach. There is a ingested tablet at the distal stomach. CT/Chest WITH Contrast IMPRESSION: Stable nodules left lower lobe likely benign given the stability over time. Stable mild aneurysmal dilatation of the ascending thoracic aorta. Stable mediastinal lymphadenopathy. Recommend correlation with any history of lymphoproliferative disease. Cardiomegaly coronary calcification. Enlarged fatty infiltrated liver. Electronically Signed: Iris Carcamo MD at 7:16 EST Reading Location ID and State: [facility], [facility] / [place] Tel , Service support ,
== END 2021-07-23 23:59 | disposition home or self-care (01) ==
LOC: CT 16:48
PROVIDERS: PCP Internal Medicine; Referring Provider Internal Medicine Cardiovascular Disease; Visit Provider Internal Medicine Cardiovascular Disease
DX: I77.89 Other specified disorders of arteries and arterioles (principal); I71.2 Thoracic aortic aneurysm, without rupture
CPT/HCPCS: 71260; Q9967

== ENCOUNTER 2021-09-11 07:28 | Outpatient (CLI) | payer MEDICARE, SELFPAY ==
[2021-09-11 10:41] LABS: Absolute Lymphocyte Count 1.43 X10^3/uL (0.83-4.51); Absolute Neutrophil Count 1.5 X10^3/uL (2.0-7.7); Basophil# 0.02 X10^3/uL; Basophil% 0.5 % (0-1); Eosinophil# 0.15 X10^3/uL; Eosinophils% 3.9 % (0-5); Hematocrit 41.5 % (40-54); Hemoglobin 14.2 g/dL (13.0-16.5); Lymphocyte # 1.43 X10^3/ul (0.83-4.51); Mean Corp Hgb Conc 34.2 g/dL (32-36); Mean Corpuscular Hgb 32.2 pg (27.0-32.0); Mean Corpuscular Volume 94.1 fL (80-94); Mean Platelet Vol. 9.2 fl (6.2-12.0); Monocyte% 20.7 % (0-10); NRBC Flagged by Analyzer 0 % (0-5); Neutrophil # 1.45 X10^3/uL (2.7-7.7); Neutrophil % 37.6 % (47-70); Platelet Count 253 K/mm3 (150-450); RBC Distribution Width CV 13.8 % (11.6-14.6); RBC Distribution Width SD 47.7 fl (35.1-43.9); Red Blood Count 4.41 M/mm3 (4.6-6.2); White Blood Count 3.9 K/mm3 (4.4-11.0)
[2021-09-11 11:00] LABS: ALB/GLOB Ratio 1.4 RATIO (0.9-2.4); AST(SGOT) 33 U/L (15-37); Alanine Aminotransfer ALT/SGPT 47 U/L (16-61); Albumin, Serum 4.4 g/dL (3.2-5.0); Alkaline Phosphatase 59 U/L (45-117); Anion Gap 5 (5-15); BUN 15 mg/dL (7-18); BUN/Creat Ratio 14.7 RATIO (10-20); Chloride 105 mmol/L (98-107); Creatinine, Serum 1.02 mg/dL (0.70-1.30); EST Glomerular Filtration Rate 77 mL/min (>60); Est Glom Filt Rate - Afr Amer 93 mL/min (>60); Globulin 3.2 g/dL (2.2-4.2); Glucose 99 mg/dL (74-106); Potassium 3.4 mmol/L (3.5-5.1); Protein, Total 7.6 g/dL (6.4-8.2); Sodium Level 139 mmol/L (136-145)
== END 2021-09-11 23:59 | disposition home or self-care (01) ==
LOC: MTLAB 07:29
PROVIDERS: PCP Internal Medicine; Referring Provider Internal Medicine Rheumatology; Visit Provider Internal Medicine Rheumatology
DX: M06.4 Inflammatory polyarthropathy (principal); I71.2 Thoracic aortic aneurysm, without rupture; M17.0 Bilateral primary osteoarthritis of knee; M65.311 Trigger thumb, right thumb; M21.40 Flat foot [pes planus] (acquired), unspecified foot; H35.30 Unspecified macular degeneration; I10 Essential (primary) hypertension; I49.3 Ventricular premature depolarization; G47.33 Obstructive sleep apnea (adult) (pediatric); E03.9 Hypothyroidism, unspecified; Z79.899 Other long term (current) drug therapy
CPT/HCPCS: 36415; 80053; 85025

== ENCOUNTER → 2021-10-24 | Outpatient (CLI) | payer MEDICARE, SELFPAY ==
--- NOTE | 2021-10-24 07:58 | MRI_ITS ---
STUDY: MRI LUMBAR SPINE WITHOUT CONTRAST REASON FOR EXAM: Male, 71 years old. RADICULOPATHY TECHNIQUE: Standardized fat and water weighted pulse sequences were obtained in the sagittal and axial planes. COMPARISON: None FINDINGS: T11-T12 and T12-L1: (Sagittal only). Normal endplates. Normal disc height, hydration and morphology. No ventral extradural defects. Normal central canal and bilateral intervertebral neural foramina. Normal lumbar lordosis. There is no substantial scoliosis. Normal conus medullaris that terminates at the T12-L1 disc space level. L1-2: Normal endplates. Normal disc height, hydration and morphology. Normal bilateral facet joints. Normal central canal and bilateral lateral recesses. Normal bilateral intervertebral neural foramina. L2-3: Normal endplates. Normal disc height, hydration and morphology. Normal bilateral facet joints. Normal central canal and bilateral lateral recesses. Normal bilateral intervertebral neural foramina. L3-4: Normal endplates. Normal disc height, hydration and morphology. Mild left degenerative facet hypertrophy. Normal right facet joint. Mild central canal stenosis with an AP canal diameter of 9 mm. Mildly prominent dorsal epidural lipomatosis. Normal bilateral lateral recesses. Normal bilateral intervertebral neural foramina. L4-5: Normal endplates. Minimal disc space height narrowing. Mild degenerative anterolisthesis of L4 on L5. Moderate bilateral degenerative facet arthropathy. Moderate central canal stenosis with an AP canal diameter of 7.6 mm. Normal bilateral lateral recesses. Mild stenosis of the right intervertebral neural foramen. Normal left intervertebral neural foramen. L5-S1: MODIC type II degenerative vertebral marrow fatty changes underneath the right side of the vertebral endplates. Moderate disc space height narrowing. Normal facet joints. Normal central canal and bilateral lateral recesses. Normal bilateral intervertebral neural foramina. Normal visualized sacral ala. Normal visualized paraspinous soft tissue structures. MRI/Spine Lumbar (Routine) IMPRESSION: 1. Moderate central canal stenosis at L4-L5 disc space level with an AP canal diameter is 7.6 mm, moderate bilateral degenerative facet arthropathy and mild degenerative anterolisthesis of L4 on L5. 2. Mild central canal stenosis at L3-L4 disc space level with an AP canal diameter of 9 mm. 3. No MRI evidence of lumbar extruded disc fragment. Electronically Signed: Nick Navas MD at 12:57 EDT ,
== END | disposition home or self-care (01) ==
LOC: MRI 07:53
PROVIDERS: PCP Internal Medicine; Visit Provider Anesthesiology Pain Medicine
DX: M54.16 Radiculopathy, lumbar region (principal); M51.36 Other intervertebral disc degeneration, lumbar region
CPT/HCPCS: 72148

== ENCOUNTER → 2021-12-10 | Outpatient (CLI) | payer MEDICARE, SELFPAY ==
[2021-12-10 17:52] LABS: Absolute Lymphocyte Count 1.48 X10^3/uL (0.83-4.51); Absolute Neutrophil Count 2.1 X10^3/uL (2.0-7.7); Basophil# 0.02 X10^3/uL; Basophil% 0.5 % (0-1); Eosinophil# 0.09 X10^3/uL; Eosinophils% 2.2 % (0-5); Hematocrit 39.8 % (40-54); Hemoglobin 13.6 g/dL (13.0-16.5); Lymphocyte # 1.48 X10^3/ul (0.83-4.51); Lymphocyte % 35.4 % (19-41); Mean Corp Hgb Conc 34.2 g/dL (32-36); Mean Corpuscular Volume 93.6 fL (80-94); Mean Platelet Vol. 9.5 fl (6.2-12.0); Monocyte# 0.47 X10^3/uL; Monocyte% 11.2 % (0-10); NRBC Flagged by Analyzer 0 % (0-5); Neutrophil # 2.11 X10^3/uL (2.7-7.7); Neutrophil % 50.5 % (47-70); Platelet Count 270 K/mm3 (150-450); RBC Distribution Width CV 13.9 % (11.6-14.6); RBC Distribution Width SD 47.3 fl (35.1-43.9); Red Blood Count 4.25 M/mm3 (4.6-6.2); White Blood Count 4.2 K/mm3 (4.4-11.0)
[2021-12-10 18:34] LABS: ALB/GLOB Ratio 1.2 RATIO (0.9-2.4); AST(SGOT) 34 U/L (15-37); Alanine Aminotransfer ALT/SGPT 42 U/L (16-61); Alkaline Phosphatase 67 U/L (45-117); Anion Gap 8 (5-15); BUN 13 mg/dL (7-18); BUN/Creat Ratio 15.6 RATIO (10-20); Calcium,Total 9.3 mg/dL (8.5-10.1); Chloride 108 mmol/L (98-107); Creatinine, Serum 0.83 mg/dL (0.70-1.30); EST Glomerular Filtration Rate 97 mL/min (>60); Est Glom Filt Rate - Afr Amer 117 mL/min (>60); Globulin 3.3 g/dL (2.2-4.2); Glucose 110 mg/dL (74-106); Potassium 3.5 mmol/L (3.5-5.1); Protein, Total 7.3 g/dL (6.4-8.2); Sodium Level 141 mmol/L (136-145); Thyroid Stim Hormone (TSH) 0.03 uIU/mL (0.358-3.74)
== END | disposition home or self-care (01) ==
LOC: MTLAB 14:45
PROVIDERS: PCP Internal Medicine; Referring Provider Internal Medicine Rheumatology; Visit Provider Internal Medicine Rheumatology
DX: M06.4 Inflammatory polyarthropathy (principal); I71.2 Thoracic aortic aneurysm, without rupture; M65.311 Trigger thumb, right thumb; M17.0 Bilateral primary osteoarthritis of knee; M21.40 Flat foot [pes planus] (acquired), unspecified foot; H35.30 Unspecified macular degeneration; I10 Essential (primary) hypertension; I49.3 Ventricular premature depolarization; G47.33 Obstructive sleep apnea (adult) (pediatric); E03.9 Hypothyroidism, unspecified; Z79.899 Other long term (current) drug therapy
CPT/HCPCS: 80053; 84443; 85025

== ENCOUNTER → 2022-02-12 | Outpatient (CLI) | payer MEDICARE, SELFPAY ==
[2022-02-12 12:24] LABS: Thyroid Stim Hormone (TSH) 0.16 uIU/mL (0.358-3.74)
== END | disposition home or self-care (01) ==
LOC: MTLAB 09:36
PROVIDERS: PCP Internal Medicine; Referring Provider Internal Medicine; Visit Provider Internal Medicine
DX: E03.9 Hypothyroidism, unspecified (principal)
CPT/HCPCS: 36415; 84443

== ENCOUNTER → 2022-03-08 | Outpatient (CLI) | payer MEDICARE, SELFPAY ==
[2022-03-08 12:30] LABS: Absolute Lymphocyte Count 1.02 X10^3/uL (0.83-4.51); Absolute Neutrophil Count 2.3 X10^3/uL (2.0-7.7); Basophil# 0.02 X10^3/uL; Basophil% 0.5 % (0-1); Eosinophil# 0.09 X10^3/uL; Eosinophils% 2.3 % (0-5); Hematocrit 42.7 % (40-54); Hemoglobin 14.6 g/dL (13.0-16.5); Lymphocyte # 1.02 X10^3/ul (0.83-4.51); Mean Corp Hgb Conc 34.2 g/dL (32-36); Mean Corpuscular Hgb 32.1 pg (27.0-32.0); Mean Corpuscular Volume 93.8 fL (80-94); Mean Platelet Vol. 9.1 fl (6.2-12.0); Monocyte# 0.46 X10^3/uL; Monocyte% 11.7 % (0-10); NRBC Flagged by Analyzer 0 % (0-5); Neutrophil # 2.33 X10^3/uL (2.7-7.7); Neutrophil % 59.2 % (47-70); Platelet Count 246 K/mm3 (150-450); RBC Distribution Width CV 13.6 % (11.6-14.6); RBC Distribution Width SD 46.5 fl (35.1-43.9); Red Blood Count 4.55 M/mm3 (4.6-6.2); White Blood Count 3.9 K/mm3 (4.4-11.0)
[2022-03-08 12:52] LABS: ALB/GLOB Ratio 1.2 RATIO (0.9-2.4); AST(SGOT) 25 U/L (15-37); Alanine Aminotransfer ALT/SGPT 39 U/L (16-61); Albumin, Serum 4.2 g/dL (3.2-5.0); Alkaline Phosphatase 74 U/L (45-117); Anion Gap 7 (5-15); BUN 12 mg/dL (7-18); BUN/Creat Ratio 13.8 RATIO (10-20); Calcium,Total 9.7 mg/dL (8.5-10.1); Chloride 109 mmol/L (98-107); Creatinine, Serum 0.87 mg/dL (0.70-1.30); EST Glomerular Filtration Rate 93 mL/min (>60); Est Glom Filt Rate - Afr Amer 112 mL/min (>60); Globulin 3.6 g/dL (2.2-4.2); Glucose 116 mg/dL (74-106); Potassium 3.4 mmol/L (3.5-5.1); Protein, Total 7.8 g/dL (6.4-8.2); Sodium Level 142 mmol/L (136-145)
== END | disposition home or self-care (01) ==
PROVIDERS: PCP Internal Medicine; Referring Provider Internal Medicine Rheumatology; Visit Provider Internal Medicine Rheumatology
DX: M06.4 Inflammatory polyarthropathy (principal); M65.311 Trigger thumb, right thumb; M17.0 Bilateral primary osteoarthritis of knee; M21.40 Flat foot [pes planus] (acquired), unspecified foot; H35.30 Unspecified macular degeneration; I10 Essential (primary) hypertension; I49.3 Ventricular premature depolarization; G47.33 Obstructive sleep apnea (adult) (pediatric); E03.9 Hypothyroidism, unspecified; Z79.899 Other long term (current) drug therapy
CPT/HCPCS: 36415; 80053; 85025

== ENCOUNTER → 2022-04-23 | Outpatient (CLI) | payer MEDICARE, SELFPAY ==
[2022-04-23 12:55] LABS: Thyroid Stim Hormone (TSH) 2.33 uIU/mL (0.358-3.74)
== END | disposition home or self-care (01) ==
PROVIDERS: PCP Internal Medicine; Referring Provider Internal Medicine; Visit Provider Internal Medicine
DX: E03.9 Hypothyroidism, unspecified (principal)
CPT/HCPCS: 36415; 84443

== ENCOUNTER → 2022-05-07 | Outpatient (CLI) | payer MEDICARE, SELFPAY ==
[2022-05-07 10:57] LABS: Cholesterol 183 mg/dL (200); High Density Lipoprotein 39 mg/dL; Triglycerides 90 mg/dL; Very Low Density Lipoprotein 18 mg/dL (5-40)
== END | disposition home or self-care (01) ==
LOC: MTLAB 07:31
PROVIDERS: PCP Internal Medicine; Referring Provider Internal Medicine; Visit Provider Internal Medicine
DX: I10 Essential (primary) hypertension (principal)
CPT/HCPCS: 36415; 80061

== ENCOUNTER → 2022-05-24 | Outpatient (CLI) | payer MEDICARE, SELFPAY ==
[2022-05-24 17:41] LABS: Absolute Lymphocyte Count 1.58 X10^3/uL (0.83-4.51); Absolute Neutrophil Count 2.4 X10^3/uL (2.0-7.7); Basophil# 0.03 X10^3/uL; Basophil% 0.6 % (0-1); Eosinophils% 2.1 % (0-5); Hematocrit 41.6 % (40-54); Hemoglobin 14.6 g/dL (13.0-16.5); Lymphocyte # 1.58 X10^3/ul (0.83-4.51); Lymphocyte % 33.8 % (19-41); Mean Corp Hgb Conc 35.1 g/dL (32-36); Mean Corpuscular Hgb 33.1 pg (27.0-32.0); Mean Corpuscular Volume 94.3 fL (80-94); Monocyte# 0.55 X10^3/uL; Monocyte% 11.8 % (0-10); NRBC Flagged by Analyzer 0 % (0-5); Neutrophil # 2.41 X10^3/uL (2.7-7.7); Neutrophil % 51.5 % (47-70); Platelet Count 246 K/mm3 (150-450); RBC Distribution Width CV 14.5 % (11.6-14.6); RBC Distribution Width SD 50.5 fl (35.1-43.9); Red Blood Count 4.41 M/mm3 (4.6-6.2); White Blood Count 4.7 K/mm3 (4.4-11.0)
[2022-05-24 18:03] LABS: ALB/GLOB Ratio 1.3 RATIO (0.9-2.4); AST(SGOT) 39 U/L (15-37); Alanine Aminotransfer ALT/SGPT 63 U/L (16-61); Albumin, Serum 4.3 g/dL (3.2-5.0); Alkaline Phosphatase 67 U/L (45-117); Anion Gap 7 (5-15); BUN 9 mg/dL (7-18); BUN/Creat Ratio 9.4 RATIO (10-20); Calcium,Total 10.1 mg/dL (8.5-10.1); Chloride 107 mmol/L (98-107); Creatinine, Serum 0.96 mg/dL (0.70-1.30); EST Glomerular Filtration Rate 82 mL/min (>60); Est Glom Filt Rate - Afr Amer 99 mL/min (>60); Globulin 3.3 g/dL (2.2-4.2); Glucose 114 mg/dL (74-106); Potassium 3.7 mmol/L (3.5-5.1); Protein, Total 7.6 g/dL (6.4-8.2); Sodium Level 141 mmol/L (136-145)
== END | disposition home or self-care (01) ==
LOC: MTLAB 15:44
PROVIDERS: PCP Internal Medicine; Referring Provider Internal Medicine Rheumatology; Visit Provider Internal Medicine Rheumatology
DX: M06.4 Inflammatory polyarthropathy (principal); M65.311 Trigger thumb, right thumb; M17.0 Bilateral primary osteoarthritis of knee; M24.10 Other articular cartilage disorders, unspecified site; H35.30 Unspecified macular degeneration; I10 Essential (primary) hypertension; I49.3 Ventricular premature depolarization; G47.33 Obstructive sleep apnea (adult) (pediatric); I71.20 Thoracic aortic aneurysm, without rupture, unspecified; E03.9 Hypothyroidism, unspecified; Z79.899 Other long term (current) drug therapy
CPT/HCPCS: 36415; 80053; 85025

== ENCOUNTER → 2022-06-17 | Outpatient (CLI) | payer MEDICARE, SELFPAY ==
--- NOTE | 2022-06-17 09:47 | US_ITS ---
STUDY: ABDOMINAL ULTRASOUND - RIGHT UPPER QUADRANT REASON FOR VISIT: Male, 71 years old ELEVATED ENZYMES TECHNIQUE: Ultrasound evaluation of the right upper quadrant was performed with real-time and static lim-scale imaging. TECHNICAL QUALITY: Adequate. COMPARISON: None. FINDINGS: Liver: The liver is mildly enlarged and measures 18.9 cm. There is increased echogenicity consistent with fatty infiltration. The bile ducts are within normal limits. There is hepatic color flow. The direction of portal flow is hepatopetal. There is no demonstrated mass lesion. Gallbladder: Normal distended gallbladder. The gallbladder wall measures 1.0 mm. There is a negative sonographic Renner''s sign. There is no pericholecystic fluid. There are no gallstones. Common Bile Duct (C.B.D.): The common bile duct measures 4.0 mm. Pancreas: Normal size of the head, body and tail of the pancreas. There is increased echogenicity of the pancreas. There is no demonstrated pancreatic mass or cyst. Right Kidney: Normal size of the right kidney. The right kidney measures 11.6 cm x 6.5 cm x 5 cm. Normal renal cortex. The right cortex measures 1.5 cm. There is no demonstrated renal mass or cyst. There is no right hydronephrosis. US/Liver IMPRESSION: Mild hepatomegaly and fatty infiltration of the liver. Electronically Signed: Daniel Vences MD at 12:34 EST ,
== END | disposition home or self-care (01) ==
PROVIDERS: PCP Internal Medicine; Visit Provider Internal Medicine Rheumatology
DX: Z79.899 Other long term (current) drug therapy (principal); M06.4 Inflammatory polyarthropathy; I71.20 Thoracic aortic aneurysm, without rupture, unspecified; K76.0 Fatty (change of) liver, not elsewhere classified; R16.0 Hepatomegaly, not elsewhere classified; M65.311 Trigger thumb, right thumb; M17.0 Bilateral primary osteoarthritis of knee; M21.40 Flat foot [pes planus] (acquired), unspecified foot; H35.30 Unspecified macular degeneration; I10 Essential (primary) hypertension; I49.3 Ventricular premature depolarization; G47.33 Obstructive sleep apnea (adult) (pediatric); E03.9 Hypothyroidism, unspecified
CPT/HCPCS: 76705

== ENCOUNTER → 2022-06-25 | Outpatient (CLI) | payer MEDICARE, SELFPAY ==
[2022-06-25 10:54] LABS: ALB/GLOB Ratio 1.4 RATIO (0.9-2.4); AST(SGOT) 32 U/L (15-37); Alanine Aminotransfer ALT/SGPT 51 U/L (16-61); Albumin, Serum 4.2 g/dL (3.2-5.0); Alkaline Phosphatase 68 U/L (45-117); Anion Gap 5 (5-15); BUN 15 mg/dL (7-18); BUN/Creat Ratio 16.6 RATIO (10-20); Calcium,Total 9.2 mg/dL (8.5-10.1); Chloride 106 mmol/L (98-107); EST Glomerular Filtration Rate 88 mL/min (>60); Est Glom Filt Rate - Afr Amer 107 mL/min (>60); Globulin 3.1 g/dL (2.2-4.2); Glucose 105 mg/dL (74-106); Potassium 3.6 mmol/L (3.5-5.1); Protein, Total 7.3 g/dL (6.4-8.2); Sodium Level 140 mmol/L (136-145)
== END | disposition home or self-care (01) ==
LOC: MTLAB 09:14
PROVIDERS: PCP Internal Medicine; Referring Provider Internal Medicine Rheumatology; Visit Provider Internal Medicine Rheumatology
DX: M06.4 Inflammatory polyarthropathy (principal); I71.20 Thoracic aortic aneurysm, without rupture, unspecified; M17.0 Bilateral primary osteoarthritis of knee; M65.311 Trigger thumb, right thumb; M21.40 Flat foot [pes planus] (acquired), unspecified foot; H35.30 Unspecified macular degeneration; I10 Essential (primary) hypertension; I49.3 Ventricular premature depolarization; G47.33 Obstructive sleep apnea (adult) (pediatric); E03.9 Hypothyroidism, unspecified; Z79.899 Other long term (current) drug therapy
CPT/HCPCS: 36415; 80053

== ENCOUNTER → 2022-08-05 | Outpatient (CLI) | payer MEDICARE, SELFPAY ==
--- NOTE | 2022-08-05 07:51 | CT_ITS ---
STUDY: CTA CHEST REASON FOR EXAM: Male, 72 years old. Aortic Aneurysm history -- Last CT- 07/23/21 RADIATION DOSAGE (If Supplied By Facility): CTDIvol = ( 18.56 ) mGy, DLP = ( 755.61 ) mGycm TECHNIQUE: The examination was performed with the intravenous administration of IV 100mL Isovue-370. Post-processing of the angiographic images was performed, with multiplanar reformation and 3D reconstruction. Individualized dose optimization techniques were used for this CT. COMPARISON: Comparison is made with prior examination dated July 23, 2021. FINDINGS: Normal enhancement of the main pulmonary artery and right and left pulmonary arteries. Normal enhancement of the bilateral peripheral pulmonary arteries. There is no demonstrated pulmonary embolism. There is aneurysmal dilatation of the ascending aorta. The transverse diameter of the ascending aorta measures 45.3 mm''s. This is essentially unchanged. There is no demonstrated aortic dissection. There are calcifications of the coronary arteries. There are visualized mediastinal lymph nodes, which are within normal size limits, and with normal morphology. Normal hilar regions. Normal visualized trachea and bronchi. The lungs are well expanded. Stable 5.2 mm well-defined nodule in the peripheral lateral aspect of the left lower lobe as seen on axial image #64. Stable mild scarring at the lung bases. Normal pleura. Normal chest wall structures. There are degenerative changes of thoracic spine. Increased kyphosis. Normal visualized upper abdomen. CT/CTA Chest W/WO Contrast IMPRESSION: Stable examination. Electronically Signed: Daniel Vences MD at 10:08 [facility] ,
[2022-08-05 08:15] LABS: CREATININE FINGERSTICK < 0.9 mg/dL (0.70-1.30); EGFR FINGERSTICK > 60.0000 mL/min (>60)
== END | disposition home or self-care (01) ==
LOC: CT 07:51
PROVIDERS: PCP Internal Medicine; Visit Provider Nurse Practitioner Family
DX: I71.20 Thoracic aortic aneurysm, without rupture, unspecified (principal)
CPT/HCPCS: 71275; Q9967

== ENCOUNTER → 2022-08-16 | Outpatient (CLI) | payer MEDICARE, SELFPAY ==
[2022-08-16 10:16] LABS: ALB/GLOB Ratio 1.2 RATIO (0.9-2.4); AST(SGOT) 37 U/L (15-37); Alanine Aminotransfer ALT/SGPT 44 U/L (16-61); Albumin, Serum 4.4 g/dL (3.2-5.0); Alkaline Phosphatase 64 U/L (45-117); Anion Gap 7 (5-15); BUN 12 mg/dL (7-18); BUN/Creat Ratio 11.2 RATIO (10-20); Calcium,Total 9.6 mg/dL (8.5-10.1); Chloride 108 mmol/L (98-107); Creatinine, Serum 1.07 mg/dL (0.70-1.30); EST Glomerular Filtration Rate 73 mL/min (>60); Est Glom Filt Rate - Afr Amer 88 mL/min (>60); Globulin 3.6 g/dL (2.2-4.2); Glucose 102 mg/dL (74-106); Potassium 3.7 mmol/L (3.5-5.1); Sodium Level 141 mmol/L (136-145)
== END | disposition home or self-care (01) ==
LOC: MTLAB 08:49
PROVIDERS: Nurse Practitioner Family; PCP Internal Medicine; Referring Provider Internal Medicine Rheumatology; Visit Provider Internal Medicine Rheumatology
DX: M06.4 Inflammatory polyarthropathy (principal); I71.20 Thoracic aortic aneurysm, without rupture, unspecified; Z79.899 Other long term (current) drug therapy; M15.9 Polyosteoarthritis, unspecified; M65.311 Trigger thumb, right thumb; M17.0 Bilateral primary osteoarthritis of knee; M21.40 Flat foot [pes planus] (acquired), unspecified foot; G47.33 Obstructive sleep apnea (adult) (pediatric); H35.30 Unspecified macular degeneration; I10 Essential (primary) hypertension; I49.3 Ventricular premature depolarization; E03.9 Hypothyroidism, unspecified
CPT/HCPCS: 36415; 80053

== ENCOUNTER → 2022-08-27 | Outpatient (CLI) | payer MEDICARE, SELFPAY ==
[2022-08-27 15:13] LABS: Absolute Lymphocyte Count 0.85 X10^3/uL (0.83-4.51); Absolute Neutrophil Count 3.8 X10^3/uL (2.0-7.7); Basophil# 0.03 X10^3/uL; Basophil% 0.6 % (0-1); Eosinophil# 0.03 X10^3/uL; Eosinophils% 0.6 % (0-5); Hematocrit 42.1 % (40-54); Hemoglobin 14.4 g/dL (13.0-16.5); Lymphocyte # 0.85 X10^3/ul (0.83-4.51); Lymphocyte % 16.5 % (19-41); Mean Corp Hgb Conc 34.2 g/dL (32-36); Mean Corpuscular Hgb 32.2 pg (27.0-32.0); Mean Corpuscular Volume 94.2 fL (80-94); Mean Platelet Vol. 9.5 fl (6.2-12.0); Monocyte# 0.38 X10^3/uL; Monocyte% 7.4 % (0-10); NRBC Flagged by Analyzer 0 % (0-5); Neutrophil # 3.82 X10^3/uL (2.7-7.7); Neutrophil % 74.3 % (47-70); Platelet Count 251 K/mm3 (150-450); RBC Distribution Width CV 13.9 % (11.6-14.6); RBC Distribution Width SD 47.8 fl (35.1-43.9); Red Blood Count 4.47 M/mm3 (4.6-6.2); White Blood Count 5.1 K/mm3 (4.4-11.0)
== END | disposition home or self-care (01) ==
LOC: MTLAB 11:31
PROVIDERS: PCP Internal Medicine; Referring Provider Internal Medicine Rheumatology; Visit Provider Internal Medicine Rheumatology
DX: M06.4 Inflammatory polyarthropathy (principal); Z79.899 Other long term (current) drug therapy
CPT/HCPCS: 36415; 85025

== ENCOUNTER 2022-09-12 14:50 | Observation (INO) | payer MEDICARE, SELFPAY ==
[2022-09-12 14:52] VITALS: BP 195/99; PULSE 50; RESP 18; TEMP 35.6; O2SAT 99
[2022-09-12 14:55] VITALS: BP 195/99; PULSE 50; RESP 18; TEMP 35.6; O2SAT 99
--- NOTE | 2022-09-12 15:12 | EDS_ITS ---
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 He states he woke from sleep with a sensation of the room spinning. He was able to get up later this morning and move about slowly. Anytime he bends over or moves his head suddenly he feels like everything starts spinning and he becomes nauseated. He denies chest pain to me but did report to nursing staff some chest pressure. He states he felt well when he went to bed last night. 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 Obesity SHARITA on CPAP Osteoarthritis Premature atrial contractions Premature ventricular contraction Pulmonary nodules Routine health maintenance Screen for colon cancer Sinus bradycardia Sleep concern Subclinical hypothyroidism Ventricular bigeminy Home Medications multivitamin 1 ea PO DAILY 10/14/17 [History Last Taken Unknown] aspirin 81 mg tablet,delayed release 81 mg PO QDAY 04/11/18 [History Last Taken Unknown] diphenhydramine HCl 25 mg capsule (Benadryl) 25 mg PO QHS PRN Allergies 04/23/19 [History Last Taken Unknown] cyanocobalamin (vitamin B-12) 1,000 mcg tablet 1,000 mcg PO DAILY 06/27/20 [History Last Taken Unknown] vitamin B complex 1 ea PO DAILY 08/01/20 [History Last Taken Unknown] glucosamine HCl 500 mg tablet 1,500 mg PO DAILY 12/22/21 [History Last Taken Unknown] naproxen sodium 220 mg capsule (Aleve) 220 mg PO Q12H PRN 12/22/21 [History Last Taken Unknown] valsartan 320 mg tablet 320 mg PO DAILY #90 tabs 12/22/21 [Rx Last Taken Unknown ] hydrochlorothiazide 25 mg tablet 25 mg PO DAILY #90 tabs 12/23/21 [Rx Last Taken Unknown] amitriptyline 50 mg tablet 50 mg PO QHS #90 tabs 02/04/22 [Rx Last Taken Unknown] prednisone 10 mg tablet 10 mg PO DAILY 03/26/22 [History Last Taken Unknown] minoxidil 10 mg tablet 10 mg PO QDAY #90 tabs 04/09/22 [Rx Last Taken Unknown] clonidine HCl 0.3 mg tablet 0.3 mg PO BID #180 tabs 06/28/22 [Rx Last Taken Unknown] felodipine 10 mg tablet,extended release 24 hr 10 mg PO QDAY #90 tabs 06/28/22 [Rx Last Taken Unknown] levothyroxine 50 mcg tablet 50 mcg PO DAILY #90 tabs 06/28/22 [Rx Last Taken Unknown] baclofen 10 mg tablet 10 mg PO Q6H 3 months #360 tabs 07/07/22 [Rx Last Taken Unknown] folic acid 1 mg tablet 1 mg PO DAILY 07/30/22 [History Last Taken Unknown] leucovorin calcium 15 mg tablet 15 mg PO DAILY 07/30/22 [History Last Taken Unknown] methotrexate sodium 2.5 mg tablet 2.5 mg PO QWEEK 07/30/22 [History Last Taken Unknown] spironolactone 25 mg tablet 25 mg PO DAILY #30 tabs 07/30/22 [Rx Last Taken Unknown] sulfasalazine 500 mg tablet 0.5 g PO DAILY 07/30/22 [History Last Taken Unknown] cpap .Route 08/16/22 [History Last Taken Unknown] gabapentin 300 mg capsule 300 mg .Route .COMPLEX #90 caps 08/16/22 [Rx Last Taken Unknown] potassium chloride 20 mEq tablet,extended release 20 meq PO DAILY 08/16/22 [History Last Taken Unknown] Allergy/AdvReac Type Severity Reaction Status Date / Time No Known Allergies Allergy Verified 08/16/22 08:18 Family History Father Heart disease Hypertension Arthritis Mother Hypertension Arthritis Surgical History History of carpal tunnel release History of left heart catheterization history of left index finger Social History Smoking Status: Never smoker alcohol intake: current alcohol intake frequency: holidays/special occasions only substance use type: does not use what type of physical activity do you participate in: other details: Stretching frequency: daily ROS ROS ED Constitutional Constitutional ED: Denies chills or fever(s) Eyes Eyes: Denies change in vision or discharge from eye(s) ENT ENT ED: Denies discharge from eye(s), rhinorrhea or sore throat Cardiovascular Cardiovascular: Reports chest pain; Denies palpitations Respiratory/Chest Respiratory/Chest: Denies cough or dyspnea Gastrointestinal Gastrointestinal: Reports nausea and vomiting; Denies abdominal pain or diarrhea Genitourinary Genitourinary ED: Denies dysuria Musculoskeletal Musculoskeletal: Denies back pain or extremity pain Integumentary Denies Abrasions or rash Neurologic Neurologic: Denies headache(s) or weakness Psychiatric Psychiatric: Denies anxiety or depression Allergic/Immunologic Allergic/Immunologic ED: Denies lip swelling or urticaria EXAM Physical Exam Const Vital Signs: 09/12/22 14:52 09/12/22 14:55 09/12/22 15:44 Temperature 96.1 F L 96.1 F L Temperature Source Temporal Temporal Pulse Rate 50 L 50 L Respiratory Rate 18 18 Respiratory Effort Normal Blood Pressure 195/99 H 195/99 H Blood Pressure Mean 131 131 Pulse Ox 99 99 Oxygen Delivery Method Room Air Room Air 09/12/22 17:15 Temperature Temperature Source Pulse Rate 44 L Respiratory Rate 16 Respiratory Effort Blood Pressure 149/97 H Blood Pressure Mean 114 Pulse Ox 99 Oxygen Delivery Method Room Air Positive well nourished and well developed General Appearance ED: well developed HEENT Reports normocephalic and head/scalp atraumatic Eyes PERRL and EOMs intact bilaterally Neck supple Chest Wall inspection of chest normal and palpation of chest normal Resp normal respiratory effort and clear to auscultation bilaterally Cardio regular rhythm Rate: bradycardia GI normal to inspection, nondistended, normoactive bowel sounds Palpation: soft Extremity normal to inspection Neuro oriented x3 and no sensory deficits noted Sensorium / Orientation: alert Motor Exam: strength 5/5 throughout Psych mental status grossly normal Skin no rashes or lesions noted MDM MDM MDM Narrative Medical decision making narrative: 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 Patient was initially given Zofran and IV Ativan. EKG obtained to evaluate for cardiac arrhythmia/ischemia. Labwork obtained to evaluate for leukocytosis, anemia, and electrolyte derangement. Lab Data Attestation: I reviewed the patient's lab results. Labs: Laboratory Results - last 24 hr 09/12/22 09/12/22 15:10 15:10 WBC 4.2 L RBC 4.16 L Hgb 13.4 Hct 39.3 L MCV 94.5 H MCH 32.2 H MCHC 34.1 RDW Std Deviation 50.1 H RDW Coeff of Rick 14.6 Plt Count 236 MPV 9.3 Immature Gran % (Auto) 0.200 Neut % (Auto) 46.2 L Lymph % (Auto) 32.8 [place] % (Auto) 16.4 H Eos % (Auto) 3.4 Baso % (Auto) 1.0 Absolute Neuts (auto) 1.9 L Absolute Lymphs (auto) 1.36 Nucleated RBC % 0 Sodium 140 Potassium 3.2 L Chloride 107 Carbon Dioxide 26.0 Anion Gap 7 BUN 20 H Creatinine 0.97 Est GFR (MDRD) Af Amer 98 Est GFR (MDRD) Non-Af 81 BUN/Creatinine Ratio 20.6 H Glucose 140 H Calcium 9.2 Total Bilirubin 0.40 Direct Bilirubin 0.10 AST 35 ALT 39 Alkaline Phosphatase 62 Troponin I High Sens 15 Total Protein 7.1 Albumin 4.0 Globulin 3.1 Radiography Diagnostic Testing: Clinical Impression(s) from Imaging Studies Head/Neck CTA 09/12/22 17:35 IMPRESSION: Normal CTA Head and neck with contrast. AIDOC was utilized to assist in identifying pertinent positive findings in this case. Electronically Signed: Dexter JohnsonDO at 18:31 EDT Reading Location ID and State: [address] [place] [address] Tel [phone], Service support , EKG Initial EKG: Attestation: I personally reviewed and interpreted this EKG as follows: Interpretation: Sinus Bradycardia (Sinus bradycardia 52 bpm. QTc is 427.) Treatment and Re-Evaluation :: EKG reveals no evidence of ischemia. CBC and chemistry studies significant only for slightly low potassium at 3.2. LFTs normal. Troponin is normal at 15. Patient had improvement in his nausea and some improvement with vertigo after the Zofran and Ativan. He was given p.o. meclizine. At this time patient still feels significantly vertiginous when he moves his head. Given that he has had intractable vertigo he was sent for CTA of the head and neck which is unremarkable. Test results of all been discussed with patient and at bedside. I do feel he will require observation overnight for further medication. I will speak with the hospitalist. Discharge Plan Triage Chief Complaint: Dizziness ED Provider: Jasmin Ortiz Dx/Rx/DC Orders Clinical Impression: Vertigo Prescriptions: No Action aspirin 81 mg tablet,delayed release (DR/EC) 81 mg PO QDAY diphenhydramine HCl [Benadryl] 25 mg capsule 25 mg PO QHS PRN (Reason: Allergies) glucosamine HCl 500 mg tablet 1,500 mg PO DAILY cyanocobalamin (vitamin B-12) 1,000 mcg tablet 1,000 mcg PO DAILY sulfasalazine 500 mg tablet 0.5 g PO DAILY Rx Instructions: give with food (meal/snack) leucovorin calcium 15 mg tablet 15 mg PO DAILY Rx Instructions: once a week methotrexate sodium 2.5 mg tablet 2.5 mg PO QWEEK folic acid 1 mg tablet 1 mg PO DAILY spironolactone 25 mg tablet 25 mg PO DAILY Qty: 30 11RF naproxen sodium [Aleve] 220 mg capsule 220 mg PO Q12H PRN valsartan 320 mg tablet 320 mg PO DAILY Qty: 90 3RF prednisone 10 mg tablet 10 mg PO DAILY Rx Instructions: ONCE A DAY PRN potassium chloride 20 mEq tablet extended release 20 meq PO DAILY cpap .Route Rx Instructions: sleep apnea gabapentin 300 mg capsule 300 mg .ROUTE .COMPLEX Qty: 90 7RF Rx Instructions: Take 1 capsule PO every morning and 2 capsules nightly levothyroxine 50 mcg tablet 50 mcg PO DAILY Qty: 90 3RF felodipine 10 mg tablet extended release 24 hr 10 mg PO QDAY Qty: 90 3RF Rx Instructions: swallow whole; do not crush/chew; administer on an empty stomach, if possible clonidine HCl 0.3 mg tablet 0.3 mg PO BID Qty: 180 2RF multivitamin 1 EACH tablet 1 ea PO DAILY vitamin B complex 1 EACH capsule 1 ea PO DAILY hydrochlorothiazide 25 mg tablet 25 mg PO DAILY Qty: 90 4RF amitriptyline 50 mg tablet 50 mg PO QHS Qty: 90 2RF minoxidil 10 mg tablet 10 mg PO QDAY Qty: 90 1RF baclofen 10 mg tablet 10 mg PO Q6H 90 Days Qty: 360 2RF Primary Care Provider: Delgado Garcia Referrals: Delgado Garcia MD [Primary Care Provider] - Disposition Disposition: Acute Care Hospital [facility]
[2022-09-12] MEDS: Ondansetron 4 MG/2 ML Vial IV (15:23)
[2022-09-12] MEDS: LORazepam 2 MG/ML Syringe 0.5 MG IV (15:23)
[2022-09-12] MEDS: 0.9% Normal Saline 1,000 ML 150 ML IV (15:24)
[2022-09-12 15:34] LABS: Absolute Lymphocyte Count 1.36 X10^3/uL (0.83-4.51); Absolute Neutrophil Count 1.9 X10^3/uL (2.0-7.7); Basophil# 0.04 X10^3/uL; Eosinophil# 0.14 X10^3/uL; Eosinophils% 3.4 % (0-5); Hematocrit 39.3 % (40-54); Hemoglobin 13.4 g/dL (13.0-16.5); Lymphocyte # 1.36 X10^3/ul (0.83-4.51); Lymphocyte % 32.8 % (19-41); Mean Corp Hgb Conc 34.1 g/dL (32-36); Mean Corpuscular Hgb 32.2 pg (27.0-32.0); Mean Corpuscular Volume 94.5 fL (80-94); Mean Platelet Vol. 9.3 fl (6.2-12.0); Monocyte# 0.68 X10^3/uL; Monocyte% 16.4 % (0-10); NRBC Flagged by Analyzer 0 % (0-5); Neutrophil # 1.92 X10^3/uL (2.7-7.7); Neutrophil % 46.2 % (47-70); Platelet Count 236 K/mm3 (150-450); RBC Distribution Width CV 14.6 % (11.6-14.6); RBC Distribution Width SD 50.1 fl (35.1-43.9); Red Blood Count 4.16 M/mm3 (4.6-6.2); White Blood Count 4.2 K/mm3 (4.4-11.0)
[2022-09-12 15:55] LABS: AST(SGOT) 35 U/L (15-37); Alanine Aminotransfer ALT/SGPT 39 U/L (16-61); Alkaline Phosphatase 62 U/L (45-117); Anion Gap 7 (5-15); BUN 20 mg/dL (7-18); BUN/Creat Ratio 20.6 RATIO (10-20); Calcium,Total 9.2 mg/dL (8.5-10.1); Chloride 107 mmol/L (98-107); Creatinine, Serum 0.97 mg/dL (0.70-1.30); EST Glomerular Filtration Rate 81 mL/min (>60); Est Glom Filt Rate - Afr Amer 98 mL/min (>60); Globulin 3.1 g/dL (2.2-4.2); Glucose 140 mg/dL (74-106); Potassium 3.2 mmol/L (3.5-5.1); Protein, Total 7.1 g/dL (6.4-8.2); Sodium Level 140 mmol/L (136-145); Troponin-I HS 15 pg/mL (3.0-78.0)
[2022-09-12 16:44] VITALS: BMI 36.1
[2022-09-12] MEDS: Meclizine HCl 25 MG Tablet PO (16:45)
[2022-09-12 17:15] VITALS: BP 149/97; PULSE 44; RESP 16; O2SAT 99
--- NOTE | 2022-09-12 17:35 | CT_ITS ---
STUDY: CTA HEAD AND NECK WITH CONTRAST REASON FOR EXAM: Male, 72 years old. Vertigo. RADIATION DOSAGE (If Supplied By Facility): CTDIvol = ( 35.46 ) mGy, DLP = ( 1665.18 ) mGycm TECHNIQUE: CT angiography was performed with a multi-detector CT scanner. Data acquisition was obtained from the skull base through the vertex following intravenous administration of IV 100mL Isovue-370. MIP images were reconstructed from the axial data set. Post-processing of the angiographic images was performed, with multiplanar reformation and 3D reconstruction. Individualized dose optimization techniques were used for this CT. COMPARISON: No relevant priors. FINDINGS: Normal bilateral petrous carotid arteries. Normal right cavernous carotid artery with a normal supraclinoid bifurcation. Normal left cavernous carotid artery with a normal supraclinoid bifurcation. Normal right A1 segments of the anterior cerebral artery. Normal left A1 segments of the anterior cerebral artery. Normal intact anterior communicating artery (ACOM). Normal bilateral A2 segments of the anterior cerebral arteries. Normal right M1 and M2 segments of the middle cerebral arteries, with a normal M1 bifurcation. Normal left M1 and M2 segments of the middle cerebral arteries, with a normal M1 bifurcation. There is non-visualization of the right posterior communicating artery (PCOM). There is non-visualization of the left posterior communicating artery (PCOM). Normal bilateral vertebral arteries. Normal basilar artery with a normal basilar bifurcation. The visualized bilateral superior cerebellar (SCA) arteries are normal. Normal bilateral P1, P2 and visualized P3 segments of the posterior cerebral arteries. There is no demonstrated aneurysm of the [place]. There is no demonstrated abnormality of the visualized brain. AORTIC ARCH: Normal visualized aortic arch. Normal origins of the brachiocephalic, left common carotid, and left subclavian arteries. RIGHT CAROTID ARTERIES: Normal right common carotid artery (CCA). Normal right common carotid bulb. Normal origin of the right internal carotid (ICA) artery without a hemodynamically significant stenosis. Normal visualized cervical portion of the right internal carotid artery. Normal origin of the right external carotid artery (ECA). LEFT CAROTID ARTERIES: Normal left common carotid artery (CCA). Normal left common carotid bulb. Normal origin of the left internal carotid (ICA) artery without a hemodynamically significant stenosis. Tortuous visualized cervical portion of the left internal carotid artery. Normal origin of the left external carotid artery (ECA). VERTEBRAL ARTERIES: There is enhancement within the bilateral vertebral arteries with a small right vertebral artery, and a dominant left vertebral artery. CT/CTA Head AND Neck W/ Contrast IMPRESSION: Normal CTA Head and neck with contrast. AIDOC was utilized to assist in identifying pertinent positive findings in this case. Electronically Signed: Dexter Johnson DO at 18:31 EDT ,
--- NOTE | 2022-09-12 18:55 | HP.PCM_ITS ---
HPI - General General Date of Admission: 09/12/22 Date of Service: 09/12/22 Chief Complaint: Vertigo, chest pain. HPI Narrative The patient is a 72 y/o M w/ PMHx: Obesity, HTN, HLD, Obesity, SHARITA on CPAP, Hypothyroidism, Chronic sinus bradycardia, Chronic polyneuropathy of unclear specific etiology, Dilated Aortic Root who presents to the [facility] ED on 09/12/22 with history of onset of dizziness early in the morning starting upon awakening with reported sensation of the room spinning however later he was able to get up and move about slowly but anytime he shifts his head or bends in a specific manner he feels that everything starts to spin and he becomes nauseated. Per report patient denied any chest discomfort to the ED physician but to staff reported chest pressure which he felt when he went to bed the evening prior. He reported that the chest discomfort was in the midsternal region and described as a heaviness rated 1-2 in severity out of 10 with no associated dyspnea, diaphoresis, nausea or emesis lasting maybe a couple minutes and resolving and has not had it since. Work-up in the ED included T96.1, heart rate 50 although did decrease down to 44, BP initially 195/99 with most recent repeat 149/97, respiratory rate 18, 99% on room air, CBC with WC 4.2, hemoglobin 13.4, platelet 236 with ANC 1.9 of note, CMP with potassium 3.2, BUN/creatinine 20/0.97, glucose 140, unremarkable hepatic profile, troponin 15, CTA head and neck unremarkable, EKG w/ SR without acute evidence of ischemia. In the ED patient ministered 1 L normal saline, Zofran 4 mg IV x1, meclizine 25 mg p.o. x1 as well as Ativan 0.5 mg IV x1. 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 Obesity SHARITA on CPAP Osteoarthritis Premature atrial contractions Premature ventricular contraction Pulmonary nodules Routine health maintenance Screen for colon cancer Sinus bradycardia Sleep concern Subclinical hypothyroidism Ventricular bigeminy Home Medications multivitamin 1 ea PO DAILY 10/14/17 [History Last Taken Unknown] aspirin 81 mg tablet,delayed release 81 mg PO QDAY 04/11/18 [History Last Taken Unknown] diphenhydramine HCl 25 mg capsule (Benadryl) 25 mg PO QHS PRN Allergies 04/23/19 [History Last Taken Unknown] cyanocobalamin (vitamin B-12) 1,000 mcg tablet 1,000 mcg PO DAILY 06/27/20 [History Last Taken Unknown] vitamin B complex 1 ea PO DAILY 08/01/20 [History Last Taken Unknown] glucosamine HCl 500 mg tablet 1,500 mg PO DAILY 12/22/21 [History Last Taken Unknown] naproxen sodium 220 mg capsule (Aleve) 220 mg PO Q12H PRN 12/22/21 [History Last Taken Unknown] valsartan 320 mg tablet 320 mg PO DAILY #90 tabs 12/22/21 [Rx Last Taken Unknown] hydrochlorothiazide 25 mg tablet 25 mg PO DAILY #90 tabs 12/23/21 [Rx Last Taken Unknown] amitriptyline 50 mg tablet 50 mg PO QHS #90 tabs 02/04/22 [Rx Last Taken Unknown] prednisone 10 mg tablet 10 mg PO DAILY 03/26/22 [History Last Taken Unknown] minoxidil 10 mg tablet 10 mg PO QDAY #90 tabs 04/09/22 [Rx Last Taken Unknown] clonidine HCl 0.3 mg tablet 0.3 mg PO BID #180 tabs 06/28/22 [Rx Last Taken Unknown] felodipine 10 mg tablet,extended release 24 hr 10 mg PO QDAY #90 tabs 06/28/22 [Rx Last Taken Unknown] levothyroxine 50 mcg tablet 50 mcg PO DAILY #90 tabs 06/28/22 [Rx Last Taken Unknown] baclofen 10 mg tablet 10 mg PO Q6H 3 months #360 tabs 07/07/22 [Rx Last Taken Unknown] folic acid 1 mg tablet 1 mg PO DAILY 07/30/22 [History Last Taken Unknown] leucovorin calcium 15 mg tablet 15 mg PO DAILY 07/30/22 [History Last Taken Unknown] methotrexate sodium 2.5 mg tablet 2.5 mg PO QWEEK 07/30/22 [History Last Taken Unknown] spironolactone 25 mg tablet 25 mg PO DAILY #30 tabs 07/30/22 [Rx Last Taken Unkn own] sulfasalazine 500 mg tablet 0.5 g PO DAILY 07/30/22 [History Last Taken Unknown] cpap .Route 08/16/22 [History Last Taken Unknown] gabapentin 300 mg capsule 300 mg .Route .COMPLEX #90 caps 08/16/22 [Rx Last Taken Unknown] potassium chloride 20 mEq tablet,extended release 20 meq PO DAILY 08/16/22 [History Last Taken Unknown] Allergy/AdvReac Type Severity Reaction Status Date / Time No Known Allergies Allergy Verified 08/16/22 08:18 Family History Father Heart disease Hypertension Arthritis Mother Hypertension Arthritis Surgical History History of carpal tunnel release History of left heart catheterization history of left index finger Social History Smoking Status: Never smoker alcohol intake: current alcohol intake frequency: holidays/special occasions only substance use type: does not use what type of physical activity do you participate in: other details: Stretching frequency: daily ROS ROS Narrative Admission Review of Systems: CONSTITUTIONAL: No weight loss, fever, chills, + weakness or fatigue. HEENT: + Vertigo. Eyes: No visual loss, blurred vision, double vision or yellow sclerae. Ears, Nose, Throat: No hearing loss, sneezing, congestion, runny nose or sore t hroat. SKIN: No rash or itching, lesions, wounds. CARDIOVASCULAR: + chest pain, chest pressure or chest discomfort, No palpitations, edema, orthopnea, syncopal events. RESPIRATORY: No shortness of breath, cough or sputum, wheezing, hemoptysis. GASTROINTESTINAL: + anorexia, nausea, vomiting, No diarrhea, abdominal pain, melena, BRBPR. GENITOURINARY: No dysuria, frequency, urgency or retention. NEUROLOGICAL: + Vertigo. No headache, syncope, paralysis, ataxia, numbness or tingling in the extremities, focal weakness, change in bowel or bladder control, seizure. MUSCULOSKELETAL: + muscle, back pain, joint pain or stiffness. HEMATOLOGIC: No anemia, bleeding or bruising. LYMPHATICS: No enlarged nodes. No history of splenectomy. PSYCHIATRIC: No history of depression or anxiety. ENDOCRINOLOGIC: No reports of sweating, cold or heat intolerance. No polyuria or polydipsia. ALLERGIES: No history of asthma, hives, eczema or rhinitis. Vital Signs Vital Signs Vital Signs: 09/12/22 14:52 09/12/22 14:55 09/12/22 15:44 Temperature 96.1 F L 96.1 F L Temperature Source Temporal Temporal Pulse Rate 50 L 50 L Respiratory Rate 18 18 Respiratory Effort Normal Blood Pressure 195/99 H 195/99 H Blood Pressure Mean 131 131 Pulse Ox 99 99 Oxygen Delivery Method Room Air Room Air 09/12/22 17:15 Temperature Temperature Source Pulse Rate 44 L Respiratory Rate 16 Respiratory Effort Blood Pressure 149/97 H Blood Pressure Mean 114 Pulse Ox 99 Oxygen Delivery Method Room Air Weight Weight: 251 lb 8.759 oz Body Mass Index (BMI) 36.1 Physical Exam Narrative Physical Examination: General: Awake, alert, oriented x 3 and cooperative, seated upright in the ED be d, currently notes symptoms have mildly improved as far as vertiginous symptoms, but notes if he moves his neck too quickly to either side it reoccurs Skin: Normal color, normal turgor, no icterus, no cyanosis. HEENT: AT/NC, EOMI, PERRLA, moderately dry MM, no carotid bruits or JVD noted. Lungs: Diminished, greater bases, appropriate effort, no rales, ronchi or wheezing. Heart: Bradycardic with regular rhythm; no gallop, rub audible. Abdomen: Soft, obese, NTTP, ND, mildly hyperactive BS, no HSM. Extremities: No cyanosis, clubbing, or edema. Neurological: Patient awake, alert, oriented as noted, cognitive function intact; pupils equally reactive to light and accommodation, cranial nerves II- XII grossly normal, moving all 4 extremities, no focal deficits, unable to reproduce vertiginous symptoms but has had medications and feels improved, strength still remains moderately to severely globally decreased secondary to his acute presentation and nausea and vomiting prior to presentation. Psychiatric: Affect appears fatigued, no acute evidence of depressive or anxiety feelings. Results Lab / Micro Data Result Diagrams: 09/12/22 15:10 09/12/22 15:10 Labs: Laboratory Results - last 24 hr 09/12/22 15:10: WBC 4.2 L, RBC 4.16 L, Hgb 13.4, Hct 39.3 L, MCV 94.5 H, MCH 32.2 H, MCHC 34.1, RDW Std Deviation 50.1 H, RDW Coeff of Rick 14.6, Plt Count 236, MPV 9.3, Immature Gran % (Auto) 0.200, Neut % (Auto) 46.2 L, Lymph % (Auto) 32.8, [place] % (Auto) 16.4 H, Eos % (Auto) 3.4, Baso % (Auto) 1.0, Absolute Neuts (auto) 1.9 L, Absolute Lymphs (auto) 1.36, Nucleated RBC % 0 09/12/22 15:10: Sodium 140, Potassium 3.2 L, Chloride 107, Carbon Dioxide 26.0, Anion Gap 7, BUN 20 H, Creatinine 0.97, Est GFR (MDRD) Af Amer 98, Est GFR (MDRD) Non-Af 81, BUN/Creatinine Ratio 20.6 H, Glucose 140 H, Calcium 9.2, Total Bilirubin 0.40, Direct Bilirubin 0.10, AST 35, ALT 39, Alkaline Phosphatase 62, Troponin I High Sens 15, Total Protein 7.1, Albumin 4.0, Globulin 3.1 Radiology Impression Head/Neck CTA 09/12/22 17:35 IMPRESSION: Normal CTA Head and neck with contrast. AIDOC was utilized to assist in identifying pertinent positive findings in this case. Electronically Signed: Dexter Johnson DO at 18:31 EDT Reading Location ID and State: [address] [place] [address] Tel [phone], Service support , Assessment & Plan Assessment/Plan (1) Vertigo: PLAN: Plan The patient is a 72 y/o M w/ PMHx: Obesity, HTN, HLD, Obesity, SHARITA on CPAP, Hypothyroidism, Chronic sinus bradycardia, Chronic polyneuropathy of unclear specific etiology, Dilated Aortic Root who presents to the [facility] ED on 09/12/22 with history of onset of dizziness early in the morning starting upon awakening with reported sensation of the room spinning however later he was able to get up and move about slowly but anytime he shifts his head or bends in a specific manner he feels that everything starts to spin and he becomes nauseated. #1. Vertigo, suspected benign positional: Given recurrent symptoms especially with any activity despite initiated meclizine and Ativan in the ED will admit to PCU given concurrent chest pain as noted #2, CTA head and neck unremarkable, EKG in ED w/ sinus rhythm without evidence of acute ischemia, initial trop normal. Will admit to PCU, place on a monitored bed, maintain on fall precautions, will maintain on scheduled valium to assist with symptoms, PRN antiemetics, continue judicious IVFs, if ongoing symptoms despite this treatment would obtain MRI brain to be cautious. PT consultation to ascertain stability and discharge needs. #2. Chest Pain w/ Hx Dilated Thoracic Aortic root: EKG in ED sinus rhythm with no acute evidence of ischemia, initial trop 15. Given dilated aortic root history preference would be for CTA to be cautious however recent contrast administration with CTA head and neck. Will obtain CXR to be cautious given chest discomfort and history of thoracic dilated aortic root however patient had recent 08/05/2022 CTA chest noting aneurysmal dilatation of the ascending aorta with a transverse diameter of the ascending aorta measuring 45.3 mm essentially unchanged. Will place on a monitored bed to assure no acute myocardial infarction with serial cardiac enzymes and EKGs. Magnesium level requested. FLP in AM. Given acute presentation #1 we will hold on any concept of stress testing until symptoms are resolved or if potentially need to be further investigated with MRI. 07/13/2021 echocardiogram with normal LV systolic function, EF 60%, moderate concentric LVH, mild MVI, trivial TVI, mild PVI, moderately dilated aortic root 5.0 cm, unable to estimate RV systolic pressure secondary to insufficient tricuspid regurgitant envelope, diastolic function indeterminate. ASA, NG, morphine. #3. Hypokalemia: Admission K+ 3.2, magnesium level requested, supplementation given, repeat level in AM. #4. Hyperglycemia, possibly stress response: Admission glucose 140, no diabetic history, hemoglobin A1c requested to be cautious. #5. Chronic bradycardia: Noted in the patient records, baseline previously has primarily ranged in the 50s at its lowest, current presentation with heart rate ranging 50 however went down to 44, will continue to closely monitor, maintain on telemetry, TSH and free T4 requested. #6. Chronic polyneuropathy, unclear specific etiology: We will continue patient home gabapentin and baclofen regimen as well as continued sulfasalazine, previously from records had also been on methotrexate but this was discontinued secondary to abnormalities in his CMP, continue to follow-up outpatient with rheumatology for ongoing evaluation. #7. Hypertension: Continue home regimen including valsartan, spironolactone, hydrochlorothiazide, felodipine, clonidine, PRN hydralazine. #8. Hyperlipidemia: Per current list on statin therapy, FLP in AM. #9. Hypothyroidism: We will continue patient home levothyroxine regimen. #10. Obesity: Weight loss and lifestyle changes encouraged. #11. SHARITA: CPAP nightly. #12. DVT prophylaxis: Lovenox. #13. CODE status: Patient HCPOA and LW are both not set-up. Noted if they are interested in more information to review with CM/SW for additional information. Discussed CODE status at length including difference between FULL code, DNR-CCA and DNR-CC status. Following discussions about the differences in these status, requested Full Code status. Admission Evaluation Time spent evaluating chart, patient history, patient evaluation, care planning and discussion with specialists: 60 minutes. Charges/Coding Visit Charges Inpatient E&M: 99607 Init Hosp L2
[2022-09-12 19:03] VITALS: BP 148/70; PULSE 42; RESP 16; TEMP 36.6; O2SAT 96
[2022-09-12 19:38] LABS: Magnesium 2.1 mg/dL (1.6-2.6)
--- NOTE | 2022-09-12 20:21 | RAD_ITS ---
STUDY: X-RAY CHEST REASON FOR EXAM: Male, 72 years old. An onset of dizziness and vomiting. Patient thinks his vertigo. Denies chest pain. Dizziness is better with her eyes closed. Woke up with room spinning. TECHNIQUE: PA and lateral views of the chest. COMPARISON: CTA of the chest, August 05, 2022. FINDINGS: The lungs are clear and expanded. There is no demonstrated pleural abnormality. Heart is mildly enlarged. Normal mediastinum and favio. Normal visualized pulmonary arteries. There is atherosclerotic calcification of the aortic arch with tortuosity. There are diffuse degenerative changes of the visualized thoracic spine. There is degenerative osteoarthritis of the bilateral shoulders. There is no demonstrated abnormality of the visualized soft tissue structures of the upper abdomen. RAD/Chest PA and Lateral IMPRESSION: Cardiomegaly without acute pulmonary disease. Electronically Signed: Dexter Johnson DO at 20:55 EDT ,
[2022-09-12 20:57] VITALS: BMI 34.0
[2022-09-12 21:04] VITALS: PULSE 50; O2SAT 97
[2022-09-12 21:12] VITALS: BP 190/96; PULSE 51; RESP 16; TEMP 36.6; O2SAT 98
[2022-09-12 22:39] LABS: Troponin-I HS 14 pg/mL (3.0-78.0)
[2022-09-12] MEDS: 0.9% Normal Saline 1,000 ML 100 ML IV (23:04)
[2022-09-12] MEDS: Potassium Chloride Oral Tablet 20 MEQ 40 MEQ PO (23:04)
[2022-09-12] MEDS: cloNIDine HCl 0.1 MG Tablet 0.3 MG PO (23:24)
[2022-09-12] MEDS: diazePAM 2 MG Tablet PO (23:30)
[2022-09-12] MEDS: Gabapentin 300 MG Capsule 600 MG PO (23:31)
[2022-09-12] MEDS: Baclofen 10 MG Tablet PO (23:57)
[2022-09-12] MEDS: Amitriptyline 25 MG Tablet 50 MG PO (23:57)
[2022-09-13] VITALS (10 sets, daily range): BP systolic 128–147; BP diastolic 72–89; PULSE 55–62; RESP 12–18; TEMP 36.7–36.8; O2SAT 93–97; BMI 34.0
[2022-09-13 00:34] LABS: Troponin-I HS 14 pg/mL (3.0-78.0)
[2022-09-13 04:29] LABS: Absolute Lymphocyte Count 1.21 X10^3/uL (0.83-4.51); Absolute Neutrophil Count 6.1 X10^3/uL (2.0-7.7); Basophil# 0.01 X10^3/uL; Basophil% 0.1 % (0-1); Eosinophil# 0.03 X10^3/uL; Eosinophils% 0.4 % (0-5); Hematocrit 36.9 % (40-54); Hemoglobin 12.6 g/dL (13.0-16.5); Lymphocyte # 1.21 X10^3/ul (0.83-4.51); Lymphocyte % 15.2 % (19-41); Mean Corp Hgb Conc 34.1 g/dL (32-36); Mean Corpuscular Hgb 32.6 pg (27.0-32.0); Mean Corpuscular Volume 95.3 fL (80-94); Mean Platelet Vol. 9.3 fl (6.2-12.0); Monocyte# 0.64 X10^3/uL; NRBC Flagged by Analyzer 0 % (0-5); Neutrophil # 6.06 X10^3/uL (2.7-7.7); Platelet Count 235 K/mm3 (150-450); RBC Distribution Width CV 14.8 % (11.6-14.6); RBC Distribution Width SD 51.3 fl (35.1-43.9); Red Blood Count 3.87 M/mm3 (4.6-6.2)
[2022-09-13 04:48] LABS: Troponin-I HS 11 pg/mL (3.0-78.0)
[2022-09-13 05:20] LABS: ALB/GLOB Ratio 1.1 RATIO (0.9-2.4); AST(SGOT) 26 U/L (15-37); Alanine Aminotransfer ALT/SGPT 33 U/L (16-61); Albumin, Serum 3.3 g/dL (3.2-5.0); Alkaline Phosphatase 50 U/L (45-117); Anion Gap 3 (5-15); BUN 15 mg/dL (7-18); BUN/Creat Ratio 19.1 RATIO (10-20); Calcium,Total 8.8 mg/dL (8.5-10.1); Chloride 109 mmol/L (98-107); Cholesterol 152 mg/dL (200); Creatinine, Serum 0.79 mg/dL (0.70-1.30); EST Glomerular Filtration Rate 103 mL/min (>60); Est Glom Filt Rate - Afr Amer 125 mL/min (>60); Estimated Creatinine Clearance 70.97 ml/min; Glucose 121 mg/dL (74-106); High Density Lipoprotein 39 mg/dL; Potassium 3.6 mmol/L (3.5-5.1); Protein, Total 6.3 g/dL (6.4-8.2); Sodium Level 137 mmol/L (136-145); T4 Free Direct 0.78 ng/dL (0.76-1.46); Thyroid Stim Hormone (TSH) 0.98 uIU/mL (0.358-3.74); Triglycerides 71 mg/dL; Very Low Density Lipoprotein 14 mg/dL (5-40)
[2022-09-13] MEDS: diazePAM 2 MG Tablet PO ×2 (06:44→15:06)
[2022-09-13] MEDS: Baclofen 10 MG Tablet PO ×2 (06:45→11:07)
[2022-09-13] MEDS: Levothyroxine 50 MCG Tablet PO (06:45)
[2022-09-13 08:38] LABS: Hemoglobin A1c 5.3 % (3.8-5.6)
--- NOTE | 2022-09-13 09:43 | MRI_ITS ---
EXAM: MR HEAD WITHOUT INTRAVENOUS CONTRAST CLINICAL INDICATION: vertigo, sudden onset, cerebellar stroke? TECHNIQUE: Multiplanar and multisequence MR images of the brain were obtained without intravenous contrast. This report was created using [employer]icient report Open English technology. COMPARISON: None. FINDINGS: BRAIN AND EXTRA-AXIAL SPACES: Normal. No intra- or extra-axial hemorrhage. No evidence of acute infarct. No intracranial mass or mass effect. There is preservation of the lim/white matter interface. Posterior fossa structures are unremarkable. Ventricles are appropriate for age. No hydrocephalus. Basal cisterns are patent. SELLA: Normal. Normal sella turcica, pituitary gland, infundibular stalk, optic chiasm and hypothalamus. AUDITORY SYSTEM: Normal. The internal auditory canals are patent. BONES/JOINTS: Intact calvarium. SINUSES: Localized left ethmoid air cell opacification. Paranasal sinuses are otherwise clear. MASTOID AIR CELLS: Unremarkable as visualized. Clear. ORBITS: Unremarkable as visualized. Both globes, extraocular muscles, optic nerves and retrobulbar fat appear unremarkable. VASCULATURE: Unremarkable as visualized. Normal flow voids in the major intracranial circulation. MRI/Brain without Contrast IMPRESSION: No intracranial abnormality. Electronically Signed: Aden Beltran MD at 13:33 EDT ,
[2022-09-13] MEDS: Spironolactone 25 MG Tablet PO (09:44)
[2022-09-13] MEDS: Folic Acid 1 MG Tablet PO (09:44)
[2022-09-13] MEDS: 0.9% Normal Saline 1,000 ML 100 ML IV (09:44)
[2022-09-13] MEDS: hydroCHLOROthiazide 25 MG Tablet PO (09:45)
[2022-09-13] MEDS: cloNIDine HCl 0.1 MG Tablet 0.3 MG PO (09:45)
[2022-09-13] MEDS: leucovorin 15 MG Tablet PO (09:45)
[2022-09-13] MEDS: Minoxidil 10 MG Tablet PO (09:46)
[2022-09-13] MEDS: sulfaSALAzine 500 MG Tablet PO (09:46)
[2022-09-13] MEDS: Enoxaparin 40 MG/0.4 ML Syringe SC (09:46)
[2022-09-13] MEDS: Gabapentin 300 MG Capsule PO (09:46)
[2022-09-13] MEDS: Losartan Potassium 100 MG Tablet PO (09:46)
[2022-09-13] MEDS: Aspirin E.C. 81 MG Tablet PO (09:47)
[2022-09-13] MEDS: amLODIPine 10 MG Tablet PO (09:47)
[2022-09-13] MEDS: Potassium Chloride Oral Tablet 20 MEQ PO (09:47)
--- NOTE | 2022-09-13 10:07 | DCINST_ITS ---
Discharge Instructions Diet Discharge Diet: No restrictions Activity Discharge Activity: Return to Normal Activity Weight Bearing Status: Weight bearing as tolerated Dressing / Incision Call your doctor if you observe: Fever of 101 or Higher, Coldness, Increased Pain, Numbness or Tingling, Change in Color, Inability to urinate, Inability to have a bowel movement, Shortness of breath, Dizziness, Fainting spells, Swelling in the ankles, Chest pain, Prolonged hiccupping, Increased palpitations (irregular heartbeat) and Calf discomfort Follow Up Care When: IN 2 WEEKS Test Results: Test results from this visit will be discussed in further detail at your follow- up appointment, if applicable. Discharge Plan Admission Admit Date/Time: 09/12/22 18:56 Primary Reason for Your Visit: vertigo Attending Provider: Manav Davis Primary Care Provider: Delgado Garcia Consulting Providers: Deysi Hernandez Discharge Orders/Prescriptions Prescriptions: Continued aspirin 81 mg tablet,delayed release (DR/EC) 81 mg PO QDAY diphenhydramine HCl [Benadryl] 25 mg capsule 25 mg PO QHS PRN (Reason: Allergies) glucosamine HCl 500 mg tablet 1,500 mg PO DAILY cyanocobalamin (vitamin B-12) 1,000 mcg tablet 1,000 mcg PO DAILY sulfasalazine 500 mg tablet 500 mg PO BID Rx Instructions: give with food (meal/snack) leucovorin calcium 15 mg tablet 15 mg PO MO Rx Instructions: once a week methotrexate sodium 2.5 mg tablet 15 mg PO COREAS folic acid 1 mg tablet 2 mg PO DAILY spironolactone 25 mg tablet 25 mg PO DAILY Qty: 30 11RF naproxen sodium [Aleve] 220 mg capsule 220 mg PO Q12H PRN (Reason: Pain) valsartan 320 mg tablet 320 mg PO DAILY Qty: 90 3RF cpap .Route Rx Instructions: sleep apnea levothyroxine 50 mcg tablet 50 mcg PO DAILY Qty: 90 3RF felodipine 10 mg tablet extended release 24 hr 10 mg PO QDAY Qty: 90 3RF Rx Instructions: swallow whole; do not crush/chew; administer on an empty stomach, if possible clonidine HCl 0.3 mg tablet 0.3 mg PO BID Qty: 180 2RF multivitamin 1 EACH tablet 1 ea PO DAILY vitamin B complex 1 EACH capsule 1 ea PO DAILY gabapentin 300 mg capsule 600 mg PO QHS Label Comments: TAKE 1 CAPSULE BY MOUTH IN THE MORNING and 2 CAPSULES NIGHTLY gabapentin 300 mg capsule 300 mg PO DAILY hydrochlorothiazide 25 mg tablet 25 mg PO DAILY Qty: 90 4RF amitriptyline 50 mg tablet 50 mg PO QHS Qty: 90 2RF minoxidil 10 mg tablet 10 mg PO QDAY Qty: 90 1RF baclofen 10 mg tablet 10 mg PO Q6H 90 Days Qty: 360 2RF Referrals / Follow Up: Delgado Garcia MD [Primary Care Provider] - Van Rosen MD [Med Staff - Active Staff] - Within 1 Month (for vertigo, dizziness, BPPV?) Disposition Disposition (needs filled in before D/C Order can be placed): Home, Self Care
--- NOTE | 2022-09-13 10:24 | PHA.DC.MR ---
Pharmacy Service has performed discharge medication reconciliation for this patient. The patient's discharge medication list was reviewed for discrepancies and discrepancies were resolved. Home Medications multivitamin 1 ea PO DAILY 10/14/17 aspirin 81 mg tablet,delayed release 81 mg PO QDAY 04/11/18 diphenhydramine HCl 25 mg capsule (Benadryl) 25 mg PO QHS PRN Allergies 04/23/19 cyanocobalamin (vitamin B-12) 1,000 mcg tablet 1,000 mcg PO DAILY 06/27/20 vitamin B complex 1 ea PO DAILY 08/01/20 glucosamine HCl 500 mg tablet 1,500 mg PO DAILY 12/22/21 naproxen sodium 220 mg capsule (Aleve) 220 mg PO Q12H PRN Pain 12/22/21 valsartan 320 mg tablet 320 mg PO DAILY #90 tabs 12/22/21 hydrochlorothiazide 25 mg tablet 25 mg PO DAILY #90 tabs 12/23/21 amitriptyline 50 mg tablet 50 mg PO QHS #90 tabs 02/04/22 minoxidil 10 mg tablet 10 mg PO QDAY #90 tabs 04/09/22 clonidine HCl 0.3 mg tablet 0.3 mg PO BID #180 tabs 06/28/22 felodipine 10 mg tablet,extended release 24 hr 10 mg PO QDAY #90 tabs 06/28/22 levothyroxine 50 mcg tablet 50 mcg PO DAILY #90 tabs 06/28/22 baclofen 10 mg tablet 10 mg PO Q6H 3 months #360 tabs 07/07/22 folic acid 1 mg tablet 2 mg PO DAILY 07/30/22 leucovorin calcium 15 mg tablet 15 mg PO MO 07/30/22 methotrexate sodium 2.5 mg tablet 15 mg PO COREAS 07/30/22 spironolactone 25 mg tablet 25 mg PO DAILY #30 tabs 07/30/22 sulfasalazine 500 mg tablet 500 mg PO BID 07/30/22 cpap .Route 08/16/22 gabapentin 300 mg capsule 300 mg PO DAILY 09/12/22 gabapentin 300 mg capsule 600 mg PO QHS 09/12/22
--- NOTE | 2022-09-13 10:49 | DS.PCM_ITS ---
Providers Date of Admission: 09/12/22 Date of Discharge: 09/13/22 Primary Care Physician: Dr. 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 Patient is states he started having cough for 1 day mainly feels like a scratchy throat/sore throat. He feels like cough is from throat. Denies shortness of breath chest pain tightness or pressure. 1. Acute vertigo and dizziness/loss of balance probably due to BPPV: Patient was was admitted with vertigo, loss of balance/equilibrium, dizziness and blurry vision. Currently only feels mildly otherwise rest of the symptoms have improved. He had vertigo first time in the life. Rapid strep throat and flu antigen ordered. SARS-CoV-2 rapid antigen negative. Chest x-ray reviewed shows no acute acute pulmonary disease. CT head reported normal. MRI brain reported no acute intracranial abnormality. Patient is discharged home. 2. Hypokalemia potassium 3.2. Repeat potassium 3.6, 1 dose replaced. Hypokalemia resolved. 3. Other chronic comorbidities include chronic polyneuropathy, chronic bradycardia, hypertension dyslipidemia, obesity and obstructive sleep apnea on CPAP and hypothyroidism: Patient is on baclofen, gabapentin as well as sulfasalazine and methotrexate. Patient has bradycardia and heart rate ranges from 50s sometimes to 44. No acute symptoms. Lipid profile shows LDL 99, triglycerides 71. TSH and free T4 normal. Serial troponins are negative. ACS ruled out. A1c 5.3. Diabetes mellitus ruled out. Discharge medication reconciliation done. Discharge follow-up instructions completed. Discharge process discussed with the patient and all questions were answered to patient's satisfaction. Total time spent, exact 35 minutes on discharge meds reconciliation, examination, coordination of care with nurses and ancillary staff, review of imaging and blood test and discussion with the patient on follow-up instructions. Clinical Impression(s) from Imaging Studies Head/Neck CTA 09/12/22 17:35 IMPRESSION: Normal CTA Head and neck with contrast. AIDOC was utilized to assist in identifying pertinent positive findings in this case. Electronically Signed: Dexter Johnson DO at 18:31 EDT , Chest X-Ray 09/12/22 20:21 IMPRESSION: Cardiomegaly without acute pulmonary disease. Electronically Signed: Dexter AlexDO at 20:55 EDT , Brain MRI 09/13/22 09:43 IMPRESSION: No intracranial abnormality. Electronically Signed: Aden Beltran MD at 13:33 EDT , . Medications at Discharge Home Medications multivitamin 1 ea PO DAILY 10/14/17 aspirin 81 mg tablet,delayed release 81 mg PO QDAY 04/11/18 diphenhydramine HCl 25 mg capsule (Benadryl) 25 mg PO QHS PRN Allergies 04/23/19 cyanocobalamin (vitamin B-12) 1,000 mcg tablet 1,000 mcg PO DAILY 06/27/20 vitamin B complex 1 ea PO DAILY 08/01/20 glucosamine HCl 500 mg tablet 1,500 mg PO DAILY 12/22/21 naproxen sodium 220 mg capsule (Aleve) 220 mg PO Q12H PRN Pain 12/22/21 valsartan 320 mg tablet 320 mg PO DAILY #90 tabs 12/22/21 hydrochlorothiazide 25 mg tablet 25 mg PO DAILY #90 tabs 12/23/21 amitriptyline 50 mg tablet 50 mg PO QHS #90 tabs 02/04/22 minoxidil 10 mg tablet 10 mg PO QDAY #90 tabs 04/09/22 clonidine HCl 0.3 mg tablet 0.3 mg PO BID #180 tabs 06/28/22 felodipine 10 mg tablet,extended release 24 hr 10 mg PO QDAY #90 tabs 06/28/22 levothyroxine 50 mcg tablet 50 mcg PO DAILY #90 tabs 06/28/22 baclofen 10 mg tablet 10 mg PO Q6H 3 months #360 tabs 07/07/22 folic acid 1 mg tablet 2 mg PO DAILY 07/30/22 leucovorin calcium 15 mg tablet 15 mg PO MO 07/30/22 methotrexate sodium 2.5 mg tablet 15 mg PO COREAS 07/30/22 spironolactone 25 mg tablet 25 mg PO DAILY #30 tabs 07/30/22 sulfasalazine 500 mg tablet 500 mg PO BID 07/30/22 cpap .Route 08/16/22 gabapentin 300 mg capsule 300 mg PO DAILY 09/12/22 gabapentin 300 mg capsule 600 mg PO QHS 09/12/22 Physical Exam Narrative Seen and examined. Physical exam general: Alert, Oriented x3, Cooperative HEENT: Atraumatic, PERRLA, EOMI, Normocephalic Oral: No Gingival or Mucosal Lesions/ Ulcerations. No submandibular or cervical lymphadenopathy. No tonsillitis. Neck: Supple, No JVD, Negative Carotid Bruits Lungs: Air entry diminished in bilateral lung bases. No crepitation/rhonchi Cardiovascular: Regular rate, Regular Rhythm, Normal S1, Normal S2, No murmurs Abdomen: Bowel Sounds Present, Soft, Non Tender, Non-Distended : No renal angle tenderness. No suprapubic tenderness. Extremities: No edema, Capillary Refill Less than 3 Seconds Skin: No rashes, No breakdown Musculoskeletal: No Tenderness to Palpation of Joints or Extremities Neurological: Cranial nerves II-XII grossly intact, DTR 2+/4 and Symmetrical, Neuro grossly intact Psych/Mental Status: Normal Affect, Appropriate. Weight / BMI Weight Weight: 237 lb 7.005 oz Body Mass Index (BMI) 34.0 ABG / Lab / Microbiology Data Result Diagrams: 09/13/22 04:00 09/13/22 04:00 Laboratory: Laboratory Results - last 24 hr 09/12/22 15:10: WBC 4.2 L, RBC 4.16 L, Hgb 13.4, Hct 39.3 L, MCV 94.5 H, MCH 32.2 H, MCHC 34.1, RDW Std Deviation 50.1 H, RDW Coeff of Rick 14.6, Plt Count 236, MPV 9.3, Immature Gran % (Auto) 0.200, Neut % (Auto) 46.2 L, Lymph % (Auto) 32.8, [place] % (Auto) 16.4 H, Eos % (Auto) 3.4, Baso % (Auto) 1.0, Absolute Neuts (auto) 1.9 L, Absolute Lymphs (auto) 1.36, Nucleated RBC % 0 09/12/22 15:10: Sodium 140, Potassium 3.2 L, Chloride 107, Carbon Dioxide 26.0, Anion Gap 7, BUN 20 H, Creatinine 0.97, Est GFR (MDRD) Af Amer 98, Est GFR (MDRD) Non-Af 81, BUN/Creatinine Ratio 20.6 H, Glucose 140 H, Calcium 9.2, Total Bilirubin 0.40, Direct Bilirubin 0.10, AST 35, ALT 39, Alkaline Phosphatase 62, Troponin I High Sens 15, Total Protein 7.1, Albumin 4.0, Globulin 3.1 09/12/22 15:10: Magnesium 2.1 09/12/22 22:17: Troponin I High Sens 14 09/12/22 23:50: Troponin I High Sens 14 09/13/22 04:00: WBC 8.0, RBC 3.87 L, Hgb 12.6 L, Hct 36.9 L, MCV 95.3 H, MCH 32.6 H, MCHC 34.1, RDW Std Deviation 51.3 H, RDW Coeff of Rick 14.8 H, Plt Count 235, MPV 9.3, Immature Gran % (Auto) 0.300, Neut % (Auto) 76.0 H, Lymph % (Auto) 15.2 L, [place] % (Auto) 8.0, Eos % (Auto) 0.4, Baso % (Auto) 0.1, Absolute Neuts (auto) 6.1, Absolute Lymphs (auto) 1.21, Nucleated RBC % 0 09/13/22 04:00: Sodium 137, Potassium 3.6, Chloride 109 H, Carbon Dioxide 25.0, Anion Gap 3 L, BUN 15, Creatinine 0.79, Estim Creat Clear Calc 70.97, Est GFR (MDRD) Af Amer 125, Est GFR (MDRD) Non-Af 103, BUN/Creatinine Ratio 19.1, Glucose 121 H, Calcium 8.8, Total Bilirubin 0.40, AST 26, ALT 33, Alkaline Phosphatase 50, Total Protein 6.3 L, Albumin 3.3, Globulin 3.0, Albumin/Globulin Ratio 1.1, Triglycerides 71, Cholesterol 152, LDL Cholesterol 99, VLDL Choles terol 14, HDL Cholesterol 39 L, TSH 0.98, Free T4 0.78 09/13/22 04:00: Hemoglobin A1c 5.3 09/13/22 04:00: Troponin I High Sens 11 Radiography Diagnostic Testing: Radiology Impression Head/Neck CTA 09/12/22 17:35 IMPRESSION: Normal CTA Head and neck with contrast. AIDOC was utilized to assist in identifying pertinent positive findings in this case. Electronically Signed: Dexter Johnson DO at 18:31 EDT Reading Location ID and State: [facility] / [place] Tel [phone], Service support , Chest X-Ray 09/12/22 20:21 IMPRESSION: Cardiomegaly without acute pulmonary disease. Electronically Signed: Dexter Johnson DO at 20:55 EDT Reading Location ID and State: [address] [place] [address] Tel [phone], Service support , D/C Instructions Discharge Diet: No restrictions Weight Bearing Status: Weight bearing as tolerated Call your doctor if you observe: Fever of 101 or Higher, Coldness, Increased Pain, Numbness or Tingling, Change in Color, Inability to urinate, Inability to have a bowel movement, Shortness of breath, Dizziness, Fainting spells, Swelling in the ankles, Chest pain, Prolonged hiccupping, Increased palpitations (irregular heartbeat) and Calf discomfort When: IN 2 WEEKS Meaningful Use Info Meaningful Use Diagnoses (Choose all that apply): None applicable Discharge Plan Admission Admit Date/Time: 09/12/22 18:56 Primary Reason for Your Visit: vertigo Attending Provider: Manav Davis Primary Care Provider: Delgado Garcia Consulting Providers: Deysi Hernandez Discharge Orders/Prescriptions Prescriptions: Continued aspirin 81 mg tablet,delayed release (DR/EC) 81 mg PO QDAY diphenhydramine HCl [Benadryl] 25 mg capsule 25 mg PO QHS PRN (Reason: Allergies) glucosamine HCl 500 mg tablet 1,500 mg PO DAILY cyanocobalamin (vitamin B-12) 1,000 mcg tablet 1,000 mcg PO DAILY sulfasalazine 500 mg tablet 500 mg PO BID Rx Instructions: give with food (meal/snack) leucovorin calcium 15 mg tablet 15 mg PO MO Rx Instructions: once a week methotrexate sodium 2.5 mg tablet 15 mg PO COREAS folic acid 1 mg tablet 2 mg PO DAILY spironolactone 25 mg tablet 25 mg PO DAILY Qty: 30 11RF naproxen sodium [Aleve] 220 mg capsule 220 mg PO Q12H PRN (Reason: Pain) valsartan 320 mg tablet 320 mg PO DAILY Qty: 90 3RF cpap .Route Rx Instructions: sleep apnea levothyroxine 50 mcg tablet 50 mcg PO DAILY Qty: 90 3RF felodipine 10 mg tablet extended release 24 hr 10 mg PO QDAY Qty: 90 3RF Rx Instructions: swallow whole; do not crush/chew; administer on an empty stomach, if possible clonidine HCl 0.3 mg tablet 0.3 mg PO BID Qty: 180 2RF multivitamin 1 EACH tablet 1 ea PO DAILY vitamin B complex 1 EACH capsule 1 ea PO DAILY gabapentin 300 mg capsule 600 mg PO QHS Label Comments: TAKE 1 CAPSULE BY MOUTH IN THE MORNING and 2 CAPSULES NIGHTLY gabapentin 300 mg capsule 300 mg PO DAILY hydrochlorothiazide 25 mg tablet 25 mg PO DAILY Qty: 90 4RF amitriptyline 50 mg tablet 50 mg PO QHS Qty: 90 2RF minoxidil 10 mg tablet 10 mg PO QDAY Qty: 90 1RF baclofen 10 mg tablet 10 mg PO Q6H 90 Days Qty: 360 2RF Referrals / Follow Up: Van Rosen MD [Med Staff - Active Staff] - Within 1 Month (for vertigo, dizziness, BPPV?) Delgado Garcia MD [Primary Care Provider] - Disposition Disposition (needs filled in before D/C Order can be placed): Home, Self Care Charges/Coding Visit Charges Inpatient E&M: 41868 Disch Hosp >30min
--- NOTE | 2022-09-13 16:29 | CASEMGMT ---
SIRISHA ALVES updated by therapy that patient will need FWW and vestibular therapy at discharge. Scripts received. Referral to [facility] made for walker and arranged for delivery to room. Script for vestibular therapy received and provided to patient with [employer] information. Patient had no further questions or concerns at this time.
== END 2022-09-13 09:47 | disposition home or self-care (01) ==
LOC: ED 19:07 → PCU 19:13
PROVIDERS: Admitting Provider Family Medicine; Emergency Provider Emergency Medicine; PCP Internal Medicine; Visit Provider Internal Medicine
DX: R42 Dizziness and giddiness (principal); I10 Essential (primary) hypertension; E78.5 Hyperlipidemia, unspecified; E87.6 Hypokalemia; E66.9 Obesity, unspecified; G47.33 Obstructive sleep apnea (adult) (pediatric); Z79.899 Other long term (current) drug therapy; Z79.82 Long term (current) use of aspirin; R07.89 Other chest pain; E03.9 Hypothyroidism, unspecified; Z79.890 Hormone replacement therapy; G62.9 Polyneuropathy, unspecified; Z68.36 Body mass index [BMI] 36.0-36.9, adult
CPT/HCPCS: 36415; 70496; 70498; 70551; 71046; 80048; 80053; 80061; 80076; 83036; 83735; 84439; 84443; 84484; 85025; 87804; 87880; 93005; 94002; 94660; 96361; 96372; 96374; 96375; 97162; 99221; 99285; J7030; Q9967; A4216; G0378; J2405

== ENCOUNTER → 2022-10-22 | Outpatient (CLI) | payer MEDICARE, SELFPAY ==
[2022-10-22 10:19] LABS: Absolute Lymphocyte Count 1.56 X10^3/uL (0.83-4.51); Absolute Neutrophil Count 1.9 X10^3/uL (2.0-7.7); Basophil# 0.03 X10^3/uL; Basophil% 0.7 % (0-1); Eosinophil# 0.13 X10^3/uL; Eosinophils% 3.1 % (0-5); Hematocrit 41.8 % (40-54); Hemoglobin 14.1 g/dL (13.0-16.5); Lymphocyte # 1.56 X10^3/ul (0.83-4.51); Lymphocyte % 37.4 % (19-41); Mean Corp Hgb Conc 33.7 g/dL (32-36); Monocyte# 0.57 X10^3/uL; Monocyte% 13.7 % (0-10); NRBC Flagged by Analyzer 0 % (0-5); Neutrophil # 1.86 X10^3/uL (2.7-7.7); Neutrophil % 44.6 % (47-70); Platelet Count 228 K/mm3 (150-450); RBC Distribution Width CV 14.3 % (11.6-14.6); White Blood Count 4.2 K/mm3 (4.4-11.0)
[2022-10-22 10:45] LABS: ALB/GLOB Ratio 1.2 RATIO (0.9-2.4); AST(SGOT) 36 U/L (15-37); Alanine Aminotransfer ALT/SGPT 37 U/L (16-61); Albumin, Serum 4.2 g/dL (3.2-5.0); Alkaline Phosphatase 56 U/L (45-117); Anion Gap 8 (5-15); BUN 16 mg/dL (7-18); BUN/Creat Ratio 16.5 RATIO (10-20); Calcium,Total 9.4 mg/dL (8.5-10.1); Chloride 106 mmol/L (98-107); Creatinine, Serum 0.97 mg/dL (0.70-1.30); EST Glomerular Filtration Rate 81 mL/min (>60); Est Glom Filt Rate - Afr Amer 99 mL/min (>60); Globulin 3.5 g/dL (2.2-4.2); Glucose 119 mg/dL (74-106); Potassium 3.5 mmol/L (3.5-5.1); Protein, Total 7.7 g/dL (6.4-8.2); Sodium Level 140 mmol/L (136-145)
== END | disposition home or self-care (01) ==
LOC: MTLAB 07:37
PROVIDERS: PCP Internal Medicine; Referring Provider Internal Medicine Rheumatology; Visit Provider Internal Medicine Rheumatology
DX: M06.4 Inflammatory polyarthropathy (principal); Z79.899 Other long term (current) drug therapy
CPT/HCPCS: 36415; 80053; 85025

== ENCOUNTER 2022-10-28 10:00 | Outpatient (RCR) | payer MEDICARE, SELFPAY ==
--- NOTE | 2022-10-07 10:52 | HP.PTEVAL ---
Patient's Visit Information Giuliano ROACH is a 72 year old M referred to Physical Therapy by Dr. Delgado Garcia MD with a diagnosis of vertigo, unsteadiness. Date of Evaluation: 10/07/22 Physical Therapist: Angel Schulz, BERNABET, OCS, CSCS - Visit Plan Frequency: 1-2x /Week Duration: 4-6 Weeks Plan: 1-2x/week for 2-4 weeks for psoitional treatments and exercises as helpful. Check BBQ roll and R HD next session and consider further treatment BBQ roll, farrukh vs appiani based onresults. Ensure patient gets back to walking and sleeping in bed - Subjective Had a bout of vertigo on 09/12 insidously. Woke up early am and bed was spinning. Was fine the night before. It stopped and went back to sleep, got up at 9 and bending over he nearly started spinning again, stood up and it settled down. Spent morning in recliner. [place] sitting. Leaned over to fill dogs dish and the room spun, leaned against wall and it let up. Things did not feel right. got tightness in chest but no pain. and things spun so went to ED via 911. Vomitted one time at home. Several times in the squad and ER. kept overnight with chest x ray, MRI on brain, checked heart and everything was OK. Home on the . Sent to see ENT which he saw 09/29. felt wobbly in those two weeks but no spinning. maybe had start of some spinning. ENT put on meds methylprednosolone. [place] good after 3 days of meds. has to bend and get up slowly. Looking up still makes him unsteeady to this day. Has not been in bed due to this. Using cane to get around because he was told to and feels unsteady in open. No AD prior. Sleeping Ok recliner. Retired. Activities : has not been able to walk his 2 miles per day. Basic ADLs are getting done, careful with looking up. Has avoided workign at [employer] - Objective Walks I with adn without AD with good balance. Posterior wobble with ec romberg but able. Cervical aROM WFL and 50 B rotations and 40 hesitant extension, no pain. UE AROM WFL but L is limited due to shoulder. - L hallpike poonam, slight + R hallpike up trosional delayed nystagmus treated with Farrukh then 50% better. + R roll test ageotropic nystagmus non fatiguing treated with BBQ roll and slolwy improved. felt OK upon sitting. - Balance/Special Test Scores Functional Gait Assessment Score: 28 % Disability: 6.6700 Dizziness Score: 32 - Goals Goal 1:: negative positional testing for BPPV Goal Time Frame: 2-4 Weeks Goal 2:: Pt feel 100% bettrer with balance and dizzyness Goal Time Frame: 4-6 Weeks Goal 3:: resume walking 2 miles Goal Time Frame: 2-4 Weeks Goal 4:: DHI score 6 or better Goal Time Frame: 2-4 Weeks Goal 5:: Sleep in bed without dizzyness Goal Time Frame: 2-4 Weeks - Rehabilitation Potential Physical Therapy Diagnosis: BPPV HC cupulo vs R post Rehabilitation Potential: Good - Anticipated Interventions Patient/Client Instruction: Educate patient on: Condition, Plan of Care For the Purpose of:: To decrease pain, To increase ROM, To improve nutrient delivery to tissue, To increase tolerance to activity/condition/position Comment: positional treatments For the Purpose of:: To improve nutrient delivery to tissue, To increase tolerance to activity/condition/position Thank you for the opportunity to evaluate your patient. For Medicare and Medicare HMO plans, please review the plan of care and approve it. It will need to be FAXED BACK to us at [phone] for Medicare purposes. For Medicare only, by signing this I certify the plan of care. Please let me know if there are questions or concerns regarding this plan of care. Physician Signature: Date:
--- NOTE | 2022-10-28 10:26 | HP.PTDCSUM ---
It has been my pleasure to treat A NEHAL ROACH referred by Dr. Delgado Mead MD, with the diagnosis of vertigo, unsteadiness for a total of 4 visit(s). Discharge Date: 10/28/22 Please see the following information for a summary of their discharge status. Subjective: Able to look up now without feeling off balance. October 19 no spinning lying on bed. Hard time getting exercise in as he gets busy and forgets. Slight spin on r side one day with exercises. [place] unsteady all day though. Got slow spin with exercises much of time for a bout a minute. Exercise not improving much over the week. Maybe slightly better spinning. No change to overall am steadiness. [place] a little more steady on feet later in day. No spinning outside of exercise. VOR ex makes him unsteady for a short time. Unchanging overall. to dr. Mead in December. % Improvement: 10 Objective/Function: Good balance limited more by R knee OA then anything else but still does not feel steady. No nystagmus with HD or roll tests today but feels a little spinny with R roll test, however he is not improving as we would expect with adaptation ex or positional exercise despite compliance. Goal 1:: negative positional testing for BPPV Goal Progress: Goal Met Goal 2:: Pt feel 100% bettrer with balance and dizzyness Goal Progress: Not Progressing Goal 3:: resume walking 2 miles Goal Progress: no due to knees Goal 4:: DHI score 6 or better Goal Progress: Not Progressing Goal 5:: Sleep in bed without dizzyness Goal Progress: in recliner Plan: d/c, pt to contact doctor mead for next step(He may contact Dr. Sutton as he has seen him in the past.) Discharge Comments: To f/u with doctor due to lack of progress in vestibular therapy If there are questions or concerns regarding this patient's physical therapy, please feel free to call me at [phone]. Thank you for the referral of this patient. Sincerely, Angel Schulz, DPT, OCS, CSCS Balance/Gait/Functional tests - Balance/Special Test Scores Functional Gait Assessment Score: 30 % Disability: 0 Dizziness Score: 30
== END 2022-10-28 19:00 | disposition home or self-care (01) ==
LOC: PT 10:00
PROVIDERS: PCP Internal Medicine; Referring Provider Internal Medicine; Visit Provider Internal Medicine
DX: R42 Dizziness and giddiness (principal); R26.89 Other abnormalities of gait and mobility
CPT/HCPCS: 97161; 97164; 97530

== ENCOUNTER → 2022-12-16 | Outpatient (CLI) | payer MEDICARE, SELFPAY ==
[2022-12-16 10:19] LABS: Absolute Lymphocyte Count 1.37 X10^3/uL (0.83-4.51); Absolute Neutrophil Count 3.1 X10^3/uL (2.0-7.7); Basophil# 0.03 X10^3/uL; Basophil% 0.6 % (0-1); Eosinophil# 0.09 X10^3/uL; Eosinophils% 1.8 % (0-5); Hemoglobin 13.8 g/dL (13.0-16.5); Lymphocyte # 1.37 X10^3/ul (0.83-4.51); Lymphocyte % 27.1 % (19-41); Mean Corp Hgb Conc 33.7 g/dL (32-36); Mean Corpuscular Hgb 32.9 pg (27.0-32.0); Mean Corpuscular Volume 97.9 fL (80-94); Mean Platelet Vol. 9.8 fl (6.2-12.0); Monocyte% 9.9 % (0-10); NRBC Flagged by Analyzer 0 % (0-5); Neutrophil # 3.05 X10^3/uL (2.7-7.7); Neutrophil % 60.4 % (47-70); Platelet Count 209 K/mm3 (150-450); RBC Distribution Width SD 50.4 fl (35.1-43.9); Red Blood Count 4.19 M/mm3 (4.6-6.2); White Blood Count 5.1 K/mm3 (4.4-11.0)
[2022-12-16 10:42] LABS: ALB/GLOB Ratio 1.4 RATIO (0.9-2.4); AST(SGOT) 28 U/L (15-37); Alanine Aminotransfer ALT/SGPT 32 U/L (16-61); Albumin, Serum 4.4 g/dL (3.2-5.0); Alkaline Phosphatase 57 U/L (45-117); Anion Gap 9 (5-15); BUN 22 mg/dL (7-18); Calcium,Total 9.6 mg/dL (8.5-10.1); Chloride 108 mmol/L (98-107); Creatinine, Serum 1.16 mg/dL (0.70-1.30); EST Glomerular Filtration Rate 66 mL/min (>60); Est Glom Filt Rate - Afr Amer 80 mL/min (>60); Globulin 3.2 g/dL (2.2-4.2); Glucose 116 mg/dL (74-106); Potassium 3.5 mmol/L (3.5-5.1); Protein, Total 7.6 g/dL (6.4-8.2); Sodium Level 144 mmol/L (136-145)
== END | disposition home or self-care (01) ==
LOC: MTLAB 08:52
PROVIDERS: PCP Internal Medicine; Visit Provider Internal Medicine Rheumatology
DX: M06.4 Inflammatory polyarthropathy (principal); K76.0 Fatty (change of) liver, not elsewhere classified; Z79.899 Other long term (current) drug therapy
CPT/HCPCS: 36415; 80053; 85025

== ENCOUNTER → 2023-03-11 | Outpatient (CLI) | payer MEDICARE, SELFPAY ==
[2023-03-11 10:18] LABS: Absolute Lymphocyte Count 1.29 X10^3/uL (0.83-4.51); Absolute Neutrophil Count 2.3 X10^3/uL (2.0-7.7); Basophil# 0.01 X10^3/uL; Basophil% 0.2 % (0-1); Eosinophil# 0.14 X10^3/uL; Eosinophils% 3.3 % (0-5); Hematocrit 40.2 % (40-54); Hemoglobin 13.2 g/dL (13.0-16.5); Lymphocyte # 1.29 X10^3/ul (0.83-4.51); Lymphocyte % 30.7 % (19-41); Mean Corp Hgb Conc 32.8 g/dL (32-36); Mean Corpuscular Hgb 32.7 pg (27.0-32.0); Mean Corpuscular Volume 99.5 fL (80-94); Monocyte# 0.44 X10^3/uL; Monocyte% 10.5 % (0-10); NRBC Flagged by Analyzer 0 % (0-5); Neutrophil % 54.8 % (47-70); Platelet Count 225 K/mm3 (150-450); RBC Distribution Width CV 13.9 % (11.6-14.6); RBC Distribution Width SD 50.5 fl (35.1-43.9); Red Blood Count 4.04 M/mm3 (4.6-6.2); White Blood Count 4.2 K/mm3 (4.4-11.0)
[2023-03-11 10:52] LABS: ALB/GLOB Ratio 1.3 RATIO (0.9-2.4); AST(SGOT) 21 U/L (15-37); Alanine Aminotransfer ALT/SGPT 33 U/L (16-61); Albumin, Serum 4.1 g/dL (3.2-5.0); Alkaline Phosphatase 53 U/L (45-117); Anion Gap 6 (5-15); BUN 21 mg/dL (7-18); BUN/Creat Ratio 20.2 RATIO (10-20); Calcium,Total 9.3 mg/dL (8.5-10.1); Chloride 106 mmol/L (98-107); Creatinine, Serum 1.04 mg/dL (0.70-1.30); EST Glomerular Filtration Rate 75 mL/min (>60); Est Glom Filt Rate - Afr Amer 91 mL/min (>60); Globulin 3.2 g/dL (2.2-4.2); Glucose 123 mg/dL (74-106); Potassium 3.5 mmol/L (3.5-5.1); Protein, Total 7.3 g/dL (6.4-8.2); Sodium Level 139 mmol/L (136-145)
== END | disposition home or self-care (01) ==
LOC: MTLAB 07:29
PROVIDERS: PCP Internal Medicine; Referring Provider Internal Medicine Rheumatology; Visit Provider Internal Medicine Rheumatology
DX: M06.4 Inflammatory polyarthropathy (principal); I10 Essential (primary) hypertension; I49.3 Ventricular premature depolarization; K76.0 Fatty (change of) liver, not elsewhere classified; Z79.899 Other long term (current) drug therapy
CPT/HCPCS: 36415; 80053; 85025

== ENCOUNTER → 2023-04-01 | Outpatient (CLI) | payer MEDICARE, SELFPAY ==
[2023-04-01 13:19] LABS: Thyroid Stim Hormone (TSH) 2.32 uIU/mL (0.358-3.74)
== END | disposition home or self-care (01) ==
LOC: BIMLAB 11:13
PROVIDERS: PCP Internal Medicine; Referring Provider Internal Medicine; Visit Provider Internal Medicine
DX: E03.9 Hypothyroidism, unspecified (principal)
CPT/HCPCS: 36415; 84443

== ENCOUNTER → 2023-06-10 | Outpatient (CLI) | payer MEDICARE, SELFPAY ==
--- OUTSIDE RECORDS SUMMARY | 2023-06-10 11:06 | XMS RPT_ITS | CCD ---
Author Name Unknown Address [address] [facility] [address] [place] [address] Organization [facility] Care Team Providers Care Nonfarm Animal Caretaker Name Role Phone Unavailable Primary Care Provider UnavailMERCEDES Spencer Attending Unavailable JAMES VIVAS Attending Unavailable NO GALVEZ Referring Unavailable Unavailable Primary Care Provider Unavailroma butt Medications Completed/Discontinued Medications Medication Drug Class(es) Dates Sig (Normalized) Sig (Original) Amitriptyline (2 sources) Tricyclic Antidepressant take 1 tablet by mouth once daily amitriptyline HCl (AMITRIPTYLINE ORAL) Take 1 tablet by mouth once daily. 0 Active Problems Problem Classification Problem Date Documented Da te Episodic/Chronic Other and unspecified benign neoplasm (1 source) Lipoma of skin and subcutaneous tissue of neck; Translations: [Benign lipomatous neoplasm of skin and subcutaneous tissue of head, face and neck] 03-10-2023 Episodic Other skin disorders (1 source) Finding of neck region; Translations: [Localized swelling, mass and lump, neck] 01-03-2023 Episodic Results Test Name Value Interpretation Reference Range Facil ity Vital Signs Date Time Vital Sign Value Performing Clinician Faci lity 03-10-2023 09:30-0400 Body temperature 97.9 [degF] Mercedes [employer] Work Phone: [facility] 03-10-2023 09:30-0400 Diastolic blood pressure 86 mm[Hg] Mercedes TY-C Work Phone: [facility] 03-10-2023 09:30-0400 Heart rate 89 /min Mercedes Gaytan PA-C Work Phone: [facility] 03-10-2023 09:30-0400 SaO2% (BldA) [Mass fraction] 94 % Mercedes [employer] Work Phone: [facility] 03-10-2023 09:30-0400 Systolic blood pressure 122 mm[Hg] Mercedes Gaytan PA-C Work Phone: [facility] 01-03-2023 08:52-0400 Body height 177.8 cm James Vivas MD Work Phone: [facility] 01-03-2023 08:52-0400 Body temperature 98.01 [degF] James Vivas MD Work Phone: [facility] 01-03-2023 08:52-0400 Body weight 108.86 kg James Vivas MD Work Phone: [facility] 01-03-2023 08:52-0400 Diastolic blood pressure 88 mm[Hg] James Vivas MD Work Phone: [facility] 01-03-2023 08:52-0400 Heart rate 99 /min James Vivas MD Work Phone: [facility] 01-03-2023 08:52-0400 SaO2% (BldA) [Mass fraction] 99 % James Vivas MD Work Phone: [facility] 01-03-2023 08:52-0400 Systolic blood pressure 136 mm[Hg] James Vivas MD Work Phone: [facility] Encounters Encounter Date Encounter Type Care Provider Facility Start: 03-10-2023 End: 03-10-2023 ambulatory MERCEDES GAYTAN Facility:[facility] Start: 03-10-2023 End: 03-10-2023 Patient encounter procedure Mercedes Gaytan PA-C Work Phone: General Surgery Procedures Date Procedure Procedure Detail Performing Clinician Start: 07-17-2020 US WRIST RIGHT [facility]cf Prov ider Start: 05-27-2020 EXTERNAL IMAGING Motion Picture Actor al Provider Start: 05-26-2020 EXTERNAL IMAGING Motion Picture Actor al Provider Plan of Treatment Date Care Activity Detail Author Start: 02-04-2023 Covid-19 Vaccine () Covid-19 Vaccine () [facility] Start: 02-04-2023 Influenza vaccination [facility] Start: 06-06-2022 ADVANCE DIRECTIVE DISCUSSION ADVANCE DIRECTIVE DISCUSSION [facility] Start: 06-06-2022 DEPRESSION ASSESSMENT DEPRESSION ASS ESSMENT [facility] Start: 07-01-2021 Covid-19 Vaccine (4 - Pfizer risk series) Covid-19 Vaccine (4 - Pfizer risk series) [facility] Start: 02-05-2020 Influenza vaccination INFLUENZA (#1) [facility] Start: 05-17-2018 Pneumococcal Vaccine : 65+ (2 - PPSV23 or PCV20) Pneumococcal Vaccine: 65+ (2 - PPSV23 or PCV20) [facility] Start: 2017 ADVANCE DIRECTIVE DISCUSSION ADVANCE DIRECTIVE DISCUSSION [facility] Start: 2017 PNEUMOVAX AGE 65 AND OVER WITH 5YR LOOKBACK (#1) PNEUMOVAX AGE 65 AND OVER WITH 5YR LOOKBACK (#1) [facility] Start: 2012 RSV Vaccine (1 - 1-d ose 60+ series) RSV Vaccine (1 - 1-dose 60+ series) [facility] Start: 2007 PROSTATE CANCER SCRE ENING DISCUSSION PROSTATE CANCER SCREENING DISCUSSION [facility] Start: 2002 Screening for malign ant neoplasm of colon [facility] Start: 2002 SHINGRIX VACCINE (1 of 2) SHINGRIX V ACCINE (1 of 2) [facility] Start: 1997 COLOGUARD (FIT-DNA) COLOGUARD (FIT-D NA) [facility] Start: 1997 Colonoscopy COLONOSCOPY [facility] Start: 1997 COLORECTAL CANCER SCREENING COLORECTAL CANCER SCREENING [facility] Start: [address] COLONOGRAPHY [facility] Start: 1997 DIABETES SCREEN DIABETES SCREEN [facility] Start: 1997 Diabetes Screening Diabetes Screenin g [facility] Start: 1997 FECAL OCCULT BLOOD FECAL OCCULT BLOO D [facility] Start: 1997 SIGMOIDOSCOPY SIGMOIDOSCOPY [facility] Start: 1987 Lipid 1996 panel - S tony or Plasma Lipid Screening [facility] Start: 1987 LIPID SCREEN LIPID SCREEN [facility] Start: 1971 SHINGRIX VACCINE (1 of 2) SHINGRIX V ACCINE (1 of 2) [facility] Start: 1971 Urine microalbumin profile [facility] Start: 1970 HEPATITIS C SCREENING HEPATITIS C SC NACHO [facility] Start: 1958 Pneumococcal Vaccine : 65+ (1 - PCV) Pneumococcal Vaccine: 65+ (1 - PCV) [facility] Start: 1958 PNEUMOCOCCAL: 65+ (1 - PCV) PNEUMOCOCCAL: 65+ (1 - PCV) [facility] Start: 1952 COVID-19 VACCINE (#1) COVID-19 VACCI NE (#1) [facility] Immunizations Immunization Date Immunization Notes Care Provider Fa cility 03-26-2022 influenza virus vacc ine, unspecified formulation Mercedes Gaytan PA-C Work Phone: [facility] Payers Date Payer Category Payer Unknown ANTHEM BLUE CROS S AND BLUE SHIELD ANTHEM MEDIBLUE ACCESS [id number] 2019-Present PPO [id number] 2019 Unknown ANTHEM BLUE CROS S AND BLUE SHIELD ANTHEM MEDIBLUE ACCESS [id number] 2019-Present [phone] [id number] [place] [address] PPO [id number] 2019 Unknown [id number] Social History Date Type Detail [facility] Start: 1950 Sex Assigned At Not on file [facility] Start: 01-03-2023 [facility] Never smoked tobacco [facility] Start: 01-03-2023 Tobacco use and exposure Smoke less tobacco non-user [facility] Start: 01-03-2023 End: 03-10-2023 Alcohol intake Lifetime non-drinker (finding) [facility] Start: 07-17-2020 End: 01-03-2023 History of Social function [facility] Start: 07-17-2020 End: 01-03-2023 Tobacco use panel [facility] National Score (1-10 0), lower number is lower risk Not on file [facility] Start: 07-15-2020 Sexual orientation Heterosexual (juan sulaiman) [facility] Tobacco smoking stat us MEIS Tobacco smoking consumption unknown [facility] Progress note 03-10-2023 Note Date & Type Note Facility 03-10-2023 Note HNO ID: [id number] Author: Mercedes Gaytan PA-C Service: ? Author Type: Physician Fitness Manager Type: Progress Notes Filed: 03/10/2023 9:58 AM Note Text: FOLLOW UP VISIT - SKIN LESION NAME: Jaison Bridges [facility] NO.: [id number] DATE OF SERVICE: 03/10/2023 : 1950 REFERRING PHYSICIAN: No primary care provider on file. Jaison is a patient I am following with Dr. Vivas for a posterior neck mass. Dr. Vivas performed an excision of this lesion on 03/03/23 in [place]. The patient notes no complaints since the procedure. The patient returns today for wound check. The pathology returned as: FINAL DIAGNOSIS A. Lipoma of neck, excision: -- Lipoma with focal fat necrosis, see comment. Diagnosis Comment This case has been reviewed by Dr. Noe Roy, who concurs with the above findings. VITALS: Blood pressure 122/86, pulse 89, temperature 36.6 ?C (97.9 ?F), SpO2 94 %. On examination, the skin incision is healing well with no signs of infection or inflammation. No seroma noted Assessment IMPRESSION: Status post excision of lipoma posterior neck PLAN: If the patient notes any problems or signs of wound infections, the patient should contact me immediately. Diagnoses: (D17.0) Lipoma of neck (primary encounter diagnosis) Return to Clinic: The patient is instructed to follow-up with me as needed. Mercedes Gaytan PA-C [facility] Instructions 03-10-2023 Patient Instructions Note Date & Type Note Facility 03-10-2023 Instructions Mercedes Gaytan PA-C - 03/10/2023 9:53 AM EDT -OK to remove steri strips if they have not fallen off on their own in the next few days -If any signs of infection or seroma at site (such as tightness and feeling like a water balloon) contact office for follow-up documented in this encounter [facility] History of Present illness Narrative 03-10-2023 Mercedes Gaytan PA-C - 03/10/2023 9:46 AM EDT Note Date & Type Note Facility 03-10-2023 History of Presen t illness Narrative FOLLOW UP VISIT - SKIN LESION NAME: Jaison Bridges [facility] NO.: [id number] DATE OF SERVICE: 03/10/2023 : 1950 REFERRING PHYSICIAN: No primary care provider on file. Jaison is a patient I am following with Dr. Vivas for a posterior neck mass. Dr. Vivas performed an excision of this lesion on 03/03/23 in [place]. The patient notes no complaints since the procedure. The patient returns today for wound check. The pathology returned as: FINAL DIAGNOSIS A. Lipoma of neck, excision: -- Lipoma with focal fat necrosis, see comment. Diagnosis Comment This case has been reviewed by Dr. Noe Roy, who concurs with the above findings. VITALS: Blood pressure 122/86, pulse 89, temperature 36.6 C (97.9 F), SpO2 94 %. On examination, the skin incision is healing well with no signs of infection or inflammation. No seroma noted Assessment IMPRESSION: Status post excision of lipoma posterior neck PLAN: If the patient notes any problems or signs of wound infections, the patient should contact me immediately. Diagnoses: (D17.0) Lipoma of neck (primary encounter diagnosis) Return to Clinic: The patient is instructed to follow-up with me as needed. Mercedes Gaytan PA-C documented in this encounter [facility] Progress note 01-03-2023 Note Date & Type Note Facility 01-03-2023 Note HNO ID: [id number] Author: James Vivas MD Service: ? Author Type: Physician Type: Progress Notes Filed: 01/06/2023 9:52 AM Note Text: HISTORY AND PHYSICAL Jaison Bridges 1950 REFERRING PHYSICIAN: No Galvez PA-C CHIEF COMPLAINT: Consult (Lump on back) HPI: The patient is a 72 year old male presents with posterior neck mass. He has noted this for about three years. He notes that it has been increasing in size, about twice its size. He denies pain, but the area feels tight . He previously had an abscess of his left shoulder that underwent IANDD about two weeks ago. 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 spironolactone (ALDACTONE) 25 mg tablet Take 25 mg by mouth once daily. Itxrobiasawvt-Dvnewpgg-Uybghk (MULTIVITAMIN 50 PLUS) tab Take 1 tablet by mouth once daily. naproxen sodium (ALEVE) 220 mg cap Take 220 mg by mouth as needed (pain 2 in the morning, 2 before bedtime). diphenhydramine HCl (BENADRYL ALLERGY ORAL) Take 25 mg by mouth as needed (for allergies). CLONIDINE HCL ORAL Take 0.3 mg by mouth once daily. Doxycycline Monohydrate 150 mg cap Take 10 mg by mouth once daily. hydroCHLOROthiazide 12.5 mg capsule Take 25 mg by mouth once daily. methotrexate 2.5 mg tablet Take 2.5 mg by mouth one time only. minoxidil (LONITEN) 10 mg tablet Take 10 mg by mouth once daily. sulfaSALAzine (AZULFIDINE) 500 mg tablet Take 500 mg by mouth twice daily. vitamins B9-L3-H0-B37-vrseluip 2.5 mg-2.5 mg- 5 mg-100 mcg tab Take 1 tablet by mouth once daily. cyanocobalamin (VITAMIN B-12) 100 mcg tab Take 100 mcg by mouth once daily. folic acid 1 mg tablet Take 1 mg by mouth once daily. aspirin 81 mg chewable tablet Take 81 mg by mouth once daily. amitriptyline HCl (AMITRIPTYLINE ORAL) Take 1 tablet by mouth once daily. FELODIPINE ORAL Take 1 tablet by mouth once daily. Glucosamine Sulfate 1,000 mg cap Take 500 mg by mouth once daily. leucovorin (LEUCOVORIN) 15 mg tablet Take 15 mg by mouth once daily. predniSONE (DELTASONE) 10 mg tablet Take 10 mg by mouth once daily. baclofen 10 mg tablet Take 10 mg by mouth three times daily. diclofenac, EC, (VOLTAREN) 25 mg EC tablet 25 mg twice daily. gabapentin (NEURONTIN) 300 mg capsule Take 300 mg by mouth three times daily. POTASSIUM CHLORIDE ORAL Take 1 tablet by mouth once daily. No current facility-administered medications for this visit. ALLERGIES: Patient has no known allergies. PERSONAL HISTORY: Social History Tobacco Use Smoking status: Never Smokeless tobacco: Never Vaping Use Vaping Use: Never used Substance Use Topics Alcohol use: Never Drug use: Never FAMILY HISTORY Problem Relation Age of Onset Diabetes Mother Hypertension Mother Hypertension Father Heart disease Father Hypertension Sister Diabetes Sister Hypertension Brother Diabetes Brother The review of systems data was entered by the nurse and reviewed by wv Nursing Notes: Yesica Rao LPN 01/03/2023 9:01 AM Signed REVIEW OF SYSTEMS: General: The patient NOTES fatigue, denies weight loss, denies weight gain, denies feeling hot, and denies feelings of cold. Eyes: The patient denies glaucoma, NOTES eye injury/surgery, wears glasses or contacts. Ear/Nose/Throat: The patient NOTES allergies, denies hayfever, denies ear infections, and denies bloody noses. Cardiovascular: The patient denies chest pain, denies heart disease, NOTES high blood pressure,denies cardiac stent, denies prior heart attack, denies irregular heart beat, denies high cholesterol, denies poor circulation, denies heart failure, other cardiac issues, NOTES claudication, denies cold feet, denies peripheral arterial stent. Respiratory: The patient denies tuberculosis, denies pneumonia, denies frequent cough, denies pulmonary embolism, NOTES shortness of breath, and denies coughing up blood. Gastrointestinal: The patient denies difficulty swallowing, denies acid reflux, denies ulcers, denies vomiting, denies jaundice/hepatitis, denies gallbladder problems, denies black or tarry stools, denies hemorrhoids, denies bleeding from rectum, denies divert (more content not included)... [facility] History of Present illness Narrative 01-03-2023 James Vivas MD - 01/03/2023 8:59 AM EDT Note Date & Type Note Facility 01-03-2023 History of Presen t illness Narrative HISTORY AND PHYSICAL Jaison Bridges 1950 REFERRING PHYSICIAN: No Galvez PA-C CHIEF COMPLAINT: Consult (Lump on back) HPI: The patient is a 72 year old male presents with posterior neck mass. He has noted this for about three years. He notes that it has been increasing in size, about twice its size. He denies pain, but the area feels tight . He previously had an abscess of his left shoulder that underwent I&D about two weeks ago. 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 spironolactone (ALDACTONE) 25 mg tablet Take 25 mg by mouth once daily. Kdjzlmeekwtlf-Kzhmbnss-Qqhckn (MULTIVITAMIN 50 PLUS) tab Take 1 tablet by mouth once daily. naproxen sodium (ALEVE) 220 mg cap Take 220 mg by mouth as needed (pain 2 in the morning, 2 before bedtime). diphenhydramine HCl (BENADRYL ALLERGY ORAL) Take 25 mg by mouth as needed (for allergies). CLONIDINE HCL ORAL Take 0.3 mg by mouth once daily. Doxycycline Monohydrate 150 mg cap Take 10 mg by mouth once daily. hydroCHLOROthiazide 12.5 mg capsule Take 25 mg by mouth once daily. methotrexate 2.5 mg tablet Take 2.5 mg by mouth one time only. minoxidil (LONITEN) 10 mg tablet Take 10 mg by mouth once daily. sulfaSALAzine (AZULFIDINE) 500 mg tablet Take 500 mg by mouth twice daily. vitamins C6-H8-W3-M43-hggfjzpo 2.5 mg-2.5 mg- 5 mg-100 mcg tab Take 1 tablet by mouth once daily. cyanocobalamin (VITAMIN B-12) 100 mcg tab Take 100 mcg by mouth once daily. folic acid 1 mg tablet Take 1 mg by mouth once daily. aspirin 81 mg chewable tablet Take 81 mg by mouth once daily. amitriptyline HCl (AMITRIPTYLINE ORAL) Take 1 tablet by mouth once daily. FELODIPINE ORAL Take 1 tablet by mouth once daily. Glucosamine Sulfate 1,000 mg cap Take 500 mg by mouth once daily. leucovorin (LEUCOVORIN) 15 mg tablet Take 15 mg by mouth once daily. predniSONE (DELTASONE) 10 mg tablet Take 10 mg by mouth once daily. baclofen 10 mg tablet Take 10 mg by mouth three times daily. diclofenac, EC, (VOLTAREN) 25 mg EC tablet 25 mg twice daily. gabapentin (NEURONTIN) 300 mg capsule Take 300 mg by mouth three times daily. POTASSIUM CHLORIDE ORAL Take 1 tablet by mouth once daily. No current facility-administered medications for this visit. ALLERGIES: Patient has no known allergies. PERSONAL HISTORY: Social History Tobacco Use Smoking status: Never Smokeless tobacco: Never Vaping Use Vaping Use: Never used Substance Use Topics Alcohol use: Never Drug use: Never FAMILY HISTORY Problem Relation Age of Onset Diabetes Mother Hypertension Mother Hypertension Father Heart disease Father Hypertension Sister Diabetes Sister Hypertension Brother Diabetes Brother The review of systems data was entered by the nurse and reviewed by wv Nursing Notes: Yesica Rao LPN 01/03/2023 9:01 AM Signed REVIEW OF SYSTEMS: General: The patient NOTES fatigue, denies weight loss, denies weight gain, denies feeling hot, and denies feelings of cold. Eyes: The patient denies glaucoma, NOTES eye injury/surgery, wears glasses or contacts. Ear/Nose/Throat: The patient NOTES allergies, denies hayfever, denies ear infections, and denies bloody noses. Cardiovascular: The patient denies chest pain, denies heart disease, NOTES high blood pressure,denies cardiac stent, denies prior heart attack, denies irregular heart beat, denies high cholesterol, denies poor circulation, denies heart failure, other cardiac issues, NOTES claudication, denies cold feet, denies peripheral arterial stent. Respiratory: The patient denies tuberculosis, denies pneumonia, denies frequent cough, denies pulmonary embolism, NOTES shortness of breath, and denies coughing up blood. Gastrointestinal: The patient denies difficulty swallowing, denies acid reflux, denies ulcers, denies vomiting, denies jaundice/hepatitis, denies gallbladder problems, denies black or tarry stools, denies hemorrhoids, denies bleeding from rectum, denies diverticulitis, denies constipation, denies diarrhea, denies loss of stool control, and denies hernias. Kidney/Bladder: The patient denies kidney stones, denies urine infections, and denies bloody urine. Skin: The patient denies a history of skin cancer, denies bleeding/changing moles, and denies a history of skin rash. Neurologic: The patient denies a history of epilepsy/convulsions, denies headaches, denies head/spinal injuries, and denies stroke/TIA. Psychiatric: The patient denies psychiatric medications, denies depression, and denies voices, denies substance abuse. Endocrine: The patient NOTES thyroid disorders, denies diabetes, and denies hormonal problems. Hematologic: The patient denies a history of bruising, denies bleeding, and denies anemia, denies blood clots. Infections: The patient NOTES a history of measles and mumps, denies rheumatic fever, and denies sexually transmitted diseases. Musculoskeletal: The patient denies back pain/injury, NOTES back problems, denies sciatica, NOTES knee/foot trouble, NOTES arthritis, or denies gout. When was patient's last Mammogram screening? N/A Last Colonoscopy: 10/2017 Yesica Rao LPN PHYSICAL EXAMINATION: General: The patient is 72 year old male, well nourished, well hydrated in no acute distress. The patient is oriented to time, place, and person. VITALS: Blood pressure 136/88, pulse 99, temperature 36.7 C (98 F), height 177.8 cm (5' 10 ), weight 108.9 kg (240 lb), SpO2 99 %. Body mass index is 34.44 kg/m . Head: Normal cephalic, atraumatic Eyes: pupils are equally round, sclera are clear/anicteric, wearing glasses Neck is supple with no tracheal deviation, posterior neck mass 8 cm protruding - no overlying skin changes Respiratory: Normal respiratory excursion and pattern. Abdominal exam: benign Extremities: no clubbing, cyanosis or edema; wearing knee braces for knee arthritis bilateral Neuro: non focal Psych: normal mood Assessment IMPRESSION: posterior neck mass PLAN: I have discussed the above with the patient. This neck mass may be a large sebaceous cyst versus lipoma. I have offered excision of this mass. I have explained the procedure to the patient. I have counseled the patient as to the risks of the procedure, including but not limited to: infection, bleeding, injury to any blood vessels/nerves, scar tissue, wound infections, complications of anesthesia, etc. - the patient understands. The patient wishes to proceed. I have answered all questions to the patient s satisfaction and the patient has no further questions. I have confirmed and edited as necessary, the PFSH and ROS obtained by others. Consultation requested by No Galvez for an opinion regarding patient's posterior neck mass. My final recommendations will be communicated back to the requesting physician by way of shared Medical record or letter to requesting physician via US mail. . Diagnoses: (R22.1) Localized swelling, mass and lump, neck (primary encounter diagnosis) Return to Clinic: The patient will be scheduled for procedure at [facility]. Medical Decision Making: Problems: Low: Stable chronic illness Risk: Low: Low risk from testing/treatment Medical Decision Making Level: 3 - Low James Vivas MD documented [facility] [facility] Nurse Note 01-03-2023 Yesica Rao LPN - 01/03/2023 8:57 AM EDT Note Date & Type Note Facility 01-03-2023 Nurse Note REVIEW OF SYSTEMS: General: The patient NOTES fatigue, denies weight loss, denies weight gain, denies feeling hot, and denies feelings of cold. Eyes: The patient denies glaucoma, NOTES eye injury/surgery, wears glasses or contacts. Ear/Nose/Throat: The patient NOTES allergies, denies hayfever, denies ear infections, and denies bloody noses. Cardiovascular: The patient denies chest pain, denies heart disease, NOTES high blood pressure,denies cardiac stent, denies prior heart attack, denies irregular heart beat, denies high cholesterol, denies poor circulation, denies heart failure, other cardiac issues, NOTES claudication, denies cold feet, denies peripheral arterial stent. Respiratory: The patient denies tuberculosis, denies pneumonia, denies frequent cough, denies pulmonary embolism, NOTES shortness of breath, and denies coughing up blood. Gastrointestinal: The patient denies difficulty swallowing, denies acid reflux, denies ulcers, denies vomiting, denies jaundice/hepatitis, denies gallbladder problems, denies black or tarry stools, denies hemorrhoids, denies bleeding from rectum, denies diverticulitis, denies constipation, denies diarrhea, denies loss of stool control, and denies hernias. Kidney/Bladder: The patient denies kidney stones, denies urine infections, and denies bloody urine. Skin: The patient denies a history of skin cancer, denies bleeding/changing moles, and denies a history of skin rash. Neurologic: The patient denies a history of epilepsy/convulsions, denies headaches, denies head/spinal injuries, and denies stroke/TIA. Psychiatric: The patient denies psychiatric medications, denies depression, and denies voices, denies substance abuse. Endocrine: The patient NOTES thyroid disorders, denies diabetes, and denies hormonal problems. Hematologic: The patient denies a history of bruising, denies bleeding, and denies anemia, denies blood clots. Infections: The patient NOTES a history of measles and mumps, denies rheumatic fever, and denies sexually transmitted diseases. Musculoskeletal: The patient denies back pain/injury, NOTES back problems, denies sciatica, NOTES knee/foot trouble, NOTES arthritis, or denies gout. When was patient's last Mammogram screening? N/A Last Colonoscopy: 10/2017 Yesica Rao LPN documented in this encounter [facility] Evaluation note Note Date & Type Note Facility documented in this encounter [facility] Evaluation note Note Date & Type Note Facility documented in this encounter [facility] Summary Purpose Family History No Family History Records FoundNo Family History Records Found Advance Directives No Advanced Directives Records FoundNo Advanced Directives Records Found Additional Source Comments Source Comments (unrecognize d section and content) In the event this informatio n is protected by the Federal Confidentiality of Alcohol and Drug Abuse Patient Records regulations: The Federal rules restrict any use of the information to criminally investigate or prosecute any alcohol or drug abuse patient.[facility] event this information is protected by the Federal Confidentiality of Alcohol and Drug Abuse Patient Records regulations: The Federal rules restrict any use of the information to criminally investigate or prosecute any alcohol or drug abuse patient.[facility] event this information is protected by the Federal Confidentiality of Alcohol and Drug Abuse Patient Records regulations: The Federal rules restrict any use of the information to criminally investigate or prosecute any alcohol or drug abuse patient.[facility] event this information is protected by the Federal Confidentiality of Alcohol and Drug Abuse Patient Records regulations: The Federal rules restrict any use of the information to criminally investigate or prosecute any alcohol or drug abuse patient.[facility] event this information is protected by the Federal Confidentiality of Alcohol and Drug Abuse Patient Records regulations: The Federal rules restrict any use of the information to criminally investigate or prosecute any alcohol or drug abuse patient.[facility] Reason for Visit (unrecogniz ed section and content) Reason Comments Follow Up Excision of posterio r neck lipoma 03/03 (unrecognized sect ion and content) No Status Records FoundNo Status Records Found INFORMATION SOURCE (unrecogn ized section and content) DATE CREATED AUTHOR AUTHOR'S ORGANIZ ATION 03/13/2023 [facility] FOR RECORDS PERTAINING TO PATIENTS WHO ARE OR HAVE BEEN ENROLLED IN A CHEMICAL DEPENDENCY/SUBSTANCEABUSE PROGRAM, SOME INFORMATION MAY BE OMITTED. This clinical summary was aggregated from multiple sources. Caution should be exercised in using it in the provision of clinical care. This summary normalizes information from multiple sources, and as a consequence, information in this document may materially change the coding, format and clinical context of patient data. In addition, data may be omitted in some cases. CLINICAL DECISIONS SHOULD BE BASED ON THE PRIMARY CLINICAL RECORDS. [employer] provides no warranty or guarantee of the accuracy or completeness of information in this document.
[2023-06-10 12:48] LABS: Absolute Lymphocyte Count 1.21 X10^3/uL (0.83-4.51); Absolute Neutrophil Count 2.5 X10^3/uL (2.0-7.7); Basophil# 0.02 X10^3/uL; Basophil% 0.5 % (0-1); Eosinophils% 2.3 % (0-5); Hemoglobin 13.2 g/dL (13.0-16.5); Lymphocyte # 1.21 X10^3/ul (0.83-4.51); Lymphocyte % 27.3 % (19-41); Mean Corp Hgb Conc 33.8 g/dL (32-36); Mean Corpuscular Hgb 32.7 pg (27.0-32.0); Mean Corpuscular Volume 96.5 fL (80-94); Mean Platelet Vol. 9.6 fl (6.2-12.0); Monocyte# 0.61 X10^3/uL; Monocyte% 13.8 % (0-10); NRBC Flagged by Analyzer 0 % (0-5); Neutrophil # 2.47 X10^3/uL (2.7-7.7); Neutrophil % 55.6 % (47-70); Platelet Count 229 K/mm3 (150-450); RBC Distribution Width CV 14.1 % (11.6-14.6); RBC Distribution Width SD 50.4 fl (35.1-43.9); Red Blood Count 4.04 M/mm3 (4.6-6.2); White Blood Count 4.4 K/mm3 (4.4-11.0)
[2023-06-10 13:28] LABS: ALB/GLOB Ratio 1.3 RATIO (0.9-2.4); AST(SGOT) 19 U/L (15-37); Alanine Aminotransfer ALT/SGPT 26 U/L (16-61); Albumin, Serum 4.1 g/dL (3.2-5.0); Alkaline Phosphatase 44 U/L (45-117); Anion Gap 6 (5-15); BUN 17 mg/dL (7-18); BUN/Creat Ratio 18.7 RATIO (10-20); Chloride 108 mmol/L (98-107); Creatinine, Serum 0.91 mg/dL (0.70-1.30); EST Glomerular Filtration Rate 87 mL/min (>60); Est Glom Filt Rate - Afr Amer 106 mL/min (>60); Globulin 3.1 g/dL (2.2-4.2); Glucose 93 mg/dL (74-106); Potassium 3.2 mmol/L (3.5-5.1); Protein, Total 7.2 g/dL (6.4-8.2); Sodium Level 141 mmol/L (136-145)
== END | disposition home or self-care (01) ==
LOC: MTLAB 10:03
PROVIDERS: PCP Internal Medicine; Referring Provider Internal Medicine Rheumatology; Visit Provider Internal Medicine Rheumatology
DX: M06.4 Inflammatory polyarthropathy (principal); K76.0 Fatty (change of) liver, not elsewhere classified; Z79.899 Other long term (current) drug therapy
CPT/HCPCS: 36415; 80053; 85025

== ENCOUNTER → 2023-07-01 | Outpatient (CLI) | payer MEDICARE, SELFPAY ==
[2023-07-01 12:47] LABS: Potassium 3.9 mmol/L (3.5-5.1)
== END | disposition home or self-care (01) ==
LOC: BIMLAB 11:07
PROVIDERS: PCP Internal Medicine; Visit Provider Internal Medicine
DX: E87.6 Hypokalemia (principal)
CPT/HCPCS: 36415; 84132

== ENCOUNTER → 2023-09-06 | Outpatient (CLI) | payer MEDICARE, SELFPAY ==
[2023-09-06 10:04] LABS: Absolute Lymphocyte Count 1.55 X10^3/uL (0.83-4.51); Absolute Neutrophil Count 2.7 X10^3/uL (2.0-7.7); Basophil# 0.03 X10^3/uL; Basophil% 0.6 % (0-1); Eosinophil# 0.06 X10^3/uL; Eosinophils% 1.2 % (0-5); Hematocrit 39.8 % (40-54); Lymphocyte # 1.55 X10^3/ul (0.83-4.51); Lymphocyte % 31.8 % (19-41); Mean Corp Hgb Conc 35.2 g/dL (32-36); Mean Corpuscular Hgb 33.5 pg (27.0-32.0); Mean Corpuscular Volume 95.2 fL (80-94); Mean Platelet Vol. 9.1 fl (6.2-12.0); Monocyte# 0.51 X10^3/uL; Monocyte% 10.5 % (0-10); NRBC Flagged by Analyzer 0 % (0-5); Neutrophil # 2.72 X10^3/uL (2.7-7.7); Neutrophil % 55.9 % (47-70); Platelet Count 256 K/mm3 (150-450); RBC Distribution Width CV 13.6 % (11.6-14.6); RBC Distribution Width SD 47.5 fl (35.1-43.9); Red Blood Count 4.18 M/mm3 (4.6-6.2); White Blood Count 4.9 K/mm3 (4.4-11.0)
[2023-09-06 10:32] LABS: Cholesterol 185 mg/dL (200); High Density Lipoprotein 46 mg/dL; Triglycerides 88 mg/dL; Very Low Density Lipoprotein 18 mg/dL (5-40)
[2023-09-06 10:47] LABS: ALB/GLOB Ratio 1.4 RATIO (0.9-2.4); AST(SGOT) 22 U/L (15-37); Alanine Aminotransfer ALT/SGPT 22 U/L (16-61); Albumin, Serum 4.4 g/dL (3.2-5.0); Alkaline Phosphatase 50 U/L (45-117); Anion Gap 7 (5-15); BUN 21 mg/dL (7-18); BUN/Creat Ratio 19.6 RATIO (10-20); Calcium,Total 9.5 mg/dL (8.5-10.1); Chloride 107 mmol/L (98-107); Creatinine, Serum 1.07 mg/dL (0.70-1.30); EST Glomerular Filtration Rate 72 mL/min (>60); Est Glom Filt Rate - Afr Amer 88 mL/min (>60); Globulin 3.2 g/dL (2.2-4.2); Glucose 91 mg/dL (74-106); Potassium 3.5 mmol/L (3.5-5.1); Protein, Total 7.6 g/dL (6.4-8.2); Sodium Level 140 mmol/L (136-145)
== END | disposition home or self-care (01) ==
LOC: MTLAB 09:04
PROVIDERS: PCP Internal Medicine; Referring Provider Internal Medicine Rheumatology; Visit Provider Internal Medicine Rheumatology
DX: M06.4 Inflammatory polyarthropathy (principal); M19.041 Primary osteoarthritis, right hand; M65.311 Trigger thumb, right thumb; M17.0 Bilateral primary osteoarthritis of knee; Z79.899 Other long term (current) drug therapy
CPT/HCPCS: 36415; 80053; 80061; 85025

== ENCOUNTER → 2023-11-03 | Outpatient (CLI) | payer MEDICARE, SELFPAY ==
[2023-11-03 13:01] LABS: Absolute Lymphocyte Count 0.84 X10^3/uL (0.83-4.51); Absolute Neutrophil Count 2.7 X10^3/uL (2.0-7.7); Basophil# 0.02 X10^3/uL; Basophil% 0.5 % (0-1); Eosinophil# 0.06 X10^3/uL; Eosinophils% 1.5 % (0-5); Hematocrit 39.8 % (40-54); Hemoglobin 13.6 g/dL (13.0-16.5); Lymphocyte # 0.84 X10^3/ul (0.83-4.51); Lymphocyte % 20.8 % (19-41); Mean Corp Hgb Conc 34.2 g/dL (32-36); Mean Corpuscular Hgb 33.2 pg (27.0-32.0); Mean Corpuscular Volume 97.1 fL (80-94); Mean Platelet Vol. 9.7 fl (6.2-12.0); Monocyte# 0.44 X10^3/uL; Monocyte% 10.9 % (0-10); NRBC Flagged by Analyzer 0 % (0-5); Neutrophil # 2.66 X10^3/uL (2.7-7.7); Neutrophil % 66.1 % (47-70); Platelet Count 261 K/mm3 (150-450); RBC Distribution Width CV 14.3 % (11.6-14.6); RBC Distribution Width SD 51.1 fl (35.1-43.9)
[2023-11-03 13:34] LABS: ALB/GLOB Ratio 1.3 RATIO (0.9-2.4); AST(SGOT) 24 U/L (15-37); Alanine Aminotransfer ALT/SGPT 24 U/L (16-61); Albumin, Serum 4.3 g/dL (3.2-5.0); Alkaline Phosphatase 61 U/L (45-117); Anion Gap 8 (5-15); BUN 16 mg/dL (7-18); BUN/Creat Ratio 15.5 RATIO (10-20); Calcium,Total 9.7 mg/dL (8.5-10.1); Chloride 108 mmol/L (98-107); Creatinine, Serum 1.03 mg/dL (0.70-1.30); EST Glomerular Filtration Rate 76 mL/min (>60); Est Glom Filt Rate - Afr Amer 92 mL/min (>60); Globulin 3.2 g/dL (2.2-4.2); Glucose 95 mg/dL (74-106); Potassium 3.6 mmol/L (3.5-5.1); Protein, Total 7.5 g/dL (6.4-8.2); Sodium Level 140 mmol/L (136-145)
== END | disposition home or self-care (01) ==
LOC: MTLAB 09:11
PROVIDERS: PCP Internal Medicine; Referring Provider Internal Medicine Rheumatology; Visit Provider Internal Medicine Rheumatology
DX: M06.4 Inflammatory polyarthropathy (principal); M19.041 Primary osteoarthritis, right hand; M65.311 Trigger thumb, right thumb; M17.0 Bilateral primary osteoarthritis of knee; Z79.899 Other long term (current) drug therapy
CPT/HCPCS: 36415; 80053; 85025

== ENCOUNTER → 2023-11-28 | Outpatient (CLI) | payer MEDICARE, SELFPAY | END | disposition home or self-care (01) | PROVIDERS: PCP Internal Medicine; Referring Provider Internal Medicine Pulmonary Disease; Visit Provider Internal Medicine Pulmonary Disease | DX: G47.10 Hypersomnia, unspecified (principal) ==

== ENCOUNTER → 2024-01-04 | Outpatient (CLI) | payer MEDICARE, SELFPAY ==
[2024-01-04 15:53] LABS: PSA,Total - Annual Screen 0.65 ng/mL (0.00-4.00); Thyroid Stim Hormone (TSH) 2.77 uIU/mL (0.358-3.74)
== END | disposition home or self-care (01) ==
LOC: BIMLAB 11:53
PROVIDERS: PCP Internal Medicine; Referring Provider Internal Medicine; Visit Provider Internal Medicine
DX: E03.9 Hypothyroidism, unspecified (principal); N40.0 Benign prostatic hyperplasia without lower urinary tract symptoms
CPT/HCPCS: 36415; 84153; 84443; G0103

== ENCOUNTER → 2024-01-31 | Outpatient (CLI) | payer MEDICARE, SELFPAY ==
[2024-01-31 15:23] LABS: Absolute Lymphocyte Count 1.53 X10^3/uL (0.83-4.51); Absolute Neutrophil Count 2.3 X10^3/uL (2.0-7.7); Basophil# 0.02 X10^3/uL; Basophil% 0.4 % (0-1); Eosinophil# 0.09 X10^3/uL; Hematocrit 37.9 % (40-54); Hemoglobin 12.9 g/dL (13.0-16.5); Lymphocyte # 1.53 X10^3/ul (0.83-4.51); Lymphocyte % 33.6 % (19-41); Mean Corpuscular Hgb 32.8 pg (27.0-32.0); Mean Corpuscular Volume 96.4 fL (80-94); Mean Platelet Vol. 9.2 fl (6.2-12.0); Monocyte# 0.59 X10^3/uL; NRBC Flagged by Analyzer 0 % (0-5); Neutrophil # 2.31 X10^3/uL (2.7-7.7); Neutrophil % 50.8 % (47-70); Platelet Count 249 K/mm3 (150-450); RBC Distribution Width CV 13.1 % (11.6-14.6); RBC Distribution Width SD 46.6 fl (35.1-43.9); Red Blood Count 3.93 M/mm3 (4.6-6.2); White Blood Count 4.6 K/mm3 (4.4-11.0)
[2024-01-31 18:10] LABS: ALB/GLOB Ratio 1.4 RATIO (0.9-2.4); AST(SGOT) 25 U/L (15-37); Alanine Aminotransfer ALT/SGPT 24 U/L (16-61); Albumin, Serum 4.2 g/dL (3.2-5.0); Alkaline Phosphatase 49 U/L (45-117); Anion Gap 7 (5-15); BUN 12 mg/dL (7-18); BUN/Creat Ratio 14.4 RATIO (10-20); Calcium,Total 9.8 mg/dL (8.5-10.1); Chloride 106 mmol/L (98-107); Creatinine, Serum 0.84 mg/dL (0.70-1.30); EST Glomerular Filtration Rate 96 mL/min (>60); Est Glom Filt Rate - Afr Amer 116 mL/min (>60); Globulin 3.1 g/dL (2.2-4.2); Glucose 98 mg/dL (74-106); Potassium 3.6 mmol/L (3.5-5.1); Protein, Total 7.3 g/dL (6.4-8.2); Sodium Level 141 mmol/L (136-145)
== END | disposition home or self-care (01) ==
LOC: MTLAB 13:18
PROVIDERS: PCP Internal Medicine; Referring Provider Internal Medicine Rheumatology; Visit Provider Internal Medicine Rheumatology
DX: M06.4 Inflammatory polyarthropathy (principal); M19.041 Primary osteoarthritis, right hand; M65.311 Trigger thumb, right thumb; M17.0 Bilateral primary osteoarthritis of knee; Z79.899 Other long term (current) drug therapy
CPT/HCPCS: 36415; 80053; 85025

== ENCOUNTER → 2024-03-26 | Outpatient (CLI) | payer MEDICARE, SELFPAY ==
[2024-03-26 12:20] LABS: Absolute Lymphocyte Count 1.08 X10^3/uL (0.83-4.51); Absolute Neutrophil Count 2.7 X10^3/uL (2.0-7.7); Basophil# 0.02 X10^3/uL; Basophil% 0.4 % (0-1); Eosinophil# 0.08 X10^3/uL; Eosinophils% 1.8 % (0-5); Hemoglobin 13.8 g/dL (13.0-16.5); Lymphocyte # 1.08 X10^3/ul (0.83-4.51); Lymphocyte % 23.7 % (19-41); Mean Corp Hgb Conc 35.4 g/dL (32-36); Mean Corpuscular Hgb 34.1 pg (27.0-32.0); Mean Corpuscular Volume 96.3 fL (80-94); Mean Platelet Vol. 9.6 fl (6.2-12.0); Monocyte# 0.71 X10^3/uL; Monocyte% 15.6 % (0-10); NRBC Flagged by Analyzer 0 % (0-5); Neutrophil # 2.66 X10^3/uL (2.7-7.7); Neutrophil % 58.3 % (47-70); Platelet Count 250 K/mm3 (150-450); RBC Distribution Width CV 13.8 % (11.6-14.6); RBC Distribution Width SD 48.8 fl (35.1-43.9); Red Blood Count 4.05 M/mm3 (4.6-6.2); White Blood Count 4.6 K/mm3 (4.4-11.0)
[2024-03-26 13:38] LABS: ALB/GLOB Ratio 1.3 RATIO (0.9-2.4); AST(SGOT) 22 U/L (15-37); Alanine Aminotransfer ALT/SGPT 23 U/L (16-61); Albumin, Serum 4.2 g/dL (3.2-5.0); Alkaline Phosphatase 43 U/L (45-117); Anion Gap 4 (5-15); BUN 17 mg/dL (7-18); BUN/Creat Ratio 20.7 RATIO (10-20); Calcium,Total 9.8 mg/dL (8.5-10.1); Chloride 108 mmol/L (98-107); Creatinine, Serum 0.82 mg/dL (0.70-1.30); EST Glomerular Filtration Rate 98 mL/min (>60); Est Glom Filt Rate - Afr Amer 119 mL/min (>60); Globulin 3.3 g/dL (2.2-4.2); Glucose 106 mg/dL (74-106); Potassium 3.6 mmol/L (3.5-5.1); Protein, Total 7.5 g/dL (6.4-8.2); Sodium Level 139 mmol/L (136-145)
== END | disposition home or self-care (01) ==
LOC: MTLAB 09:43
PROVIDERS: PCP Internal Medicine; Referring Provider Internal Medicine Rheumatology; Visit Provider Internal Medicine Rheumatology
DX: M06.4 Inflammatory polyarthropathy (principal); M19.041 Primary osteoarthritis, right hand; M65.311 Trigger thumb, right thumb; M17.0 Bilateral primary osteoarthritis of knee; Z79.899 Other long term (current) drug therapy
CPT/HCPCS: 36415; 80053; 85025

== ENCOUNTER → 2024-06-22 | Outpatient (CLI) | payer MEDICARE, SELFPAY ==
[2024-06-22 12:06] LABS: Absolute Lymphocyte Count 1.08 X10^3/uL (0.83-4.51); Absolute Neutrophil Count 2.7 X10^3/uL (2.0-7.7); Basophil# 0.02 X10^3/uL; Basophil% 0.5 % (0-1); Eosinophils% 2.3 % (0-5); Hematocrit 41.2 % (40-54); Hemoglobin 14.1 g/dL (13.0-16.5); Lymphocyte # 1.08 X10^3/ul (0.83-4.51); Lymphocyte % 24.4 % (19-41); Mean Corp Hgb Conc 34.2 g/dL (32-36); Mean Corpuscular Hgb 32.8 pg (27.0-32.0); Mean Corpuscular Volume 95.8 fL (80-94); Mean Platelet Vol. 9.2 fl (6.2-12.0); Monocyte# 0.54 X10^3/uL; Monocyte% 12.2 % (0-10); NRBC Flagged by Analyzer 0 % (0-5); Neutrophil # 2.68 X10^3/uL (2.7-7.7); Neutrophil % 60.4 % (47-70); Platelet Count 250 K/mm3 (150-450); RBC Distribution Width CV 13.2 % (11.6-14.6); RBC Distribution Width SD 46.7 fl (35.1-43.9); White Blood Count 4.4 K/mm3 (4.4-11.0)
[2024-06-22 12:39] LABS: ALB/GLOB Ratio 1.4 RATIO (0.9-2.4); AST(SGOT) 21 U/L (15-37); Alanine Aminotransfer ALT/SGPT 22 U/L (16-61); Albumin, Serum 4.4 g/dL (3.2-5.0); Alkaline Phosphatase 55 U/L (45-117); Anion Gap 7 (5-15); BUN 15 mg/dL (7-18); BUN/Creat Ratio 14.9 RATIO (10-20); Calcium,Total 10.2 mg/dL (8.5-10.1); Chloride 108 mmol/L (98-107); Creatinine, Serum 1.01 mg/dL (0.70-1.30); EST Glomerular Filtration Rate 77 mL/min (>60); Est Glom Filt Rate - Afr Amer 93 mL/min (>60); Globulin 3.2 g/dL (2.2-4.2); Glucose 103 mg/dL (74-106); Potassium 3.6 mmol/L (3.5-5.1); Protein, Total 7.6 g/dL (6.4-8.2); Sodium Level 142 mmol/L (136-145)
== END | disposition home or self-care (01) ==
LOC: MTLAB 11:06
PROVIDERS: PCP Internal Medicine; Referring Provider Internal Medicine Rheumatology; Visit Provider Internal Medicine Rheumatology
DX: M06.4 Inflammatory polyarthropathy (principal); Z79.899 Other long term (current) drug therapy
CPT/HCPCS: 36415; 80053; 85025

== ENCOUNTER → 2024-09-11 | Outpatient (CLI) | payer MEDICARE, SELFPAY ==
[2024-09-11 14:59] LABS: Absolute Lymphocyte Count 0.99 X10^3/uL (0.83-4.51); Absolute Neutrophil Count 2.1 X10^3/uL (2.0-7.7); Basophil# 0.02 X10^3/uL; Basophil% 0.5 % (0-1); Eosinophil# 0.09 X10^3/uL; Eosinophils% 2.4 % (0-5); Hemoglobin 14.2 g/dL (13.0-16.5); Lymphocyte # 0.99 X10^3/ul (0.83-4.51); Lymphocyte % 26.6 % (19-41); Mean Corp Hgb Conc 34.6 g/dL (32-36); Mean Corpuscular Hgb 33.4 pg (27.0-32.0); Mean Corpuscular Volume 96.5 fL (80-94); Mean Platelet Vol. 9.9 fl (6.2-12.0); Monocyte# 0.49 X10^3/uL; Monocyte% 13.2 % (0-10); NRBC Flagged by Analyzer 0 % (0-5); Neutrophil # 2.13 X10^3/uL (2.7-7.7); Neutrophil % 57.3 % (47-70); Platelet Count 257 K/mm3 (150-450); RBC Distribution Width CV 13.6 % (11.6-14.6); RBC Distribution Width SD 48.1 fl (35.1-43.9); Red Blood Count 4.25 M/mm3 (4.6-6.2); White Blood Count 3.7 K/mm3 (4.4-11.0)
[2024-09-11 15:32] LABS: ALB/GLOB Ratio 1.6 RATIO (0.9-2.4); AST(SGOT) 28 U/L (<=37); Alanine Aminotransfer ALT/SGPT 17 U/L (<=46); Albumin, Serum 4.7 g/dL (3.4-4.8); Alkaline Phosphatase 53 U/L (40-129); Anion Gap 13 (5-15); BUN 13 mg/dL (4-19); Calcium,Total 10.1 mg/dL (7.6-11.0); Carbon Dioxide 23.6 mmol/L (21.0-32.0); Chloride 103 mmol/L (98-108); Cholesterol 179 mg/dL (<=200); Creatinine, Serum 0.93 mg/dL (0.70-1.20); EST Glomerular Filtration Rate 87 (>60); Glucose 112 mg/dL (70-99); High Density Lipoprotein 36 mg/dL; Low Density Lipoprotein Calc. 81 mg/dL; PSA,Total- Diagnostic 0.64 ng/mL (0.00-4.00); Potassium 3.6 mmol/L (3.3-5.1); Protein, Total 7.7 g/dL (5.9-8.4); Sodium Level 140 mmol/L (133-145); Triglycerides 314 mg/dL; Very Low Density Lipoprotein 63 mg/dL (5-40); cholesterol:hdl ratio screen 5.03
[2024-09-12 16:46] LABS: Hemoglobin A1c 5.4 % (<=5.6)
== END | disposition home or self-care (01) ==
LOC: MTLAB 11:34
PROVIDERS: PCP Internal Medicine; Referring Provider Internal Medicine; Visit Provider Internal Medicine
DX: M06.4 Inflammatory polyarthropathy (principal); M17.0 Bilateral primary osteoarthritis of knee; M19.041 Primary osteoarthritis, right hand; M19.042 Primary osteoarthritis, left hand; M65.311 Trigger thumb, right thumb; Z79.899 Other long term (current) drug therapy
CPT/HCPCS: 36415; 80053; 80061; 83036; 84153; 84443; 85025

== ENCOUNTER → 2024-09-17 | Outpatient (CLI) | payer MEDICARE, SELFPAY ==
--- NOTE | 2024-09-17 13:48 | CT_ITS ---
PROCEDURE: CTA CHEST W/WO CONTRAST 09/17/2024 REASON FOR EXAM: THORASIC AORTA 4.5CM Follow-up examination. TECHNIQUE: CTA imaging of the chest with intravenous contrast. Coronal and Sagittal reconstruction series were provided. 3D, 3D post processing, 3D reconstructions, Maximum intensity projection (MIPs) Volume rendering and Shaded surface rendering was provided. CONTRAST: Isovue 3 7 VOLUME: 100 mL One or more dose reduction techniques were used (e.g., Automated exposure control, adjustment of the mA and/or kV according to patient size, use of iterative reconstruction technique). RADIATION DOSE SUMMARY: CTDlvol: 16.5 mGy DLP: 704.15 mGycm COMPARISON: Comparison is made with prior study dated August 05, 2022. FINDINGS: Thoracic Aorta: The root of the ascending thoracic aorta measures 45.9 mm. Heart: Coronary artery calcifications are noted. Pulmonary Vessels: Unremarkable Hardware: None Lymph nodes: No significant mediastinal lymph nodes are seen. Lungs and Airways: No focal infiltrate. Pleura: Unremarkable. Upper Abdomen: Mildly distended esophagus. Bones: Degenerative changes of the thoracic spine. CT/CTA Chest W/WO Contrast IMPRESSION: Dilatation of the root of the ascending thoracic aorta with a transverse dimens ion of 45.9 mm. It previously measured 45.3 mm. Reading Location: [place] [id number]
== END | disposition home or self-care (01) ==
LOC: CT 13:05
PROVIDERS: PCP Internal Medicine; Referring Provider Internal Medicine Cardiovascular Disease; Visit Provider Internal Medicine Cardiovascular Disease
DX: I71.21 Aneurysm of the ascending aorta, without rupture (principal)
CPT/HCPCS: 71275; Q9967

== ENCOUNTER → 2024-10-01 | Outpatient (CLI) | payer MEDICARE, SELFPAY ==
[2024-10-01 11:38] LABS: Cholesterol 191 mg/dL (<=200); High Density Lipoprotein 38 mg/dL; Low Density Lipoprotein Calc. 134 mg/dL; Triglycerides 98 mg/dL; Very Low Density Lipoprotein 20 mg/dL (5-40); cholesterol:hdl ratio screen 5.04
== END | disposition home or self-care (01) ==
LOC: MTLAB 08:25
PROVIDERS: PCP Internal Medicine; Referring Provider Internal Medicine; Visit Provider Internal Medicine
DX: E03.9 Hypothyroidism, unspecified (principal); I10 Essential (primary) hypertension
CPT/HCPCS: 36415; 80061; 84443

== ENCOUNTER → 2024-11-27 | Outpatient (CLI) | payer MEDICARE, SELFPAY | END | disposition home or self-care (01) | LOC: MTLAB 09:18 | PROVIDERS: PCP Internal Medicine; Referring Provider Internal Medicine; Visit Provider Internal Medicine | DX: E03.9 Hypothyroidism, unspecified (principal) | CPT/HCPCS: 36415; 84443 ==

== ENCOUNTER → 2024-12-03 | Outpatient (CLI) | payer MEDICARE, SELFPAY ==
[2024-12-03 09:52] LABS: Absolute Lymphocyte Count 1.02 X10^3/uL (0.83-4.51); Absolute Neutrophil Count 2.5 X10^3/uL (2.0-7.7); Basophil# 0.02 X10^3/uL; Basophil% 0.5 % (0-1); Eosinophils% 2.4 % (0-5); Hemoglobin 12.7 g/dL (13.0-16.5); Lymphocyte # 1.02 X10^3/ul (0.83-4.51); Lymphocyte % 24.5 % (19-41); Mean Corp Hgb Conc 34.3 g/dL (32-36); Mean Corpuscular Hgb 33.2 pg (27.0-32.0); Mean Corpuscular Volume 96.6 fL (80-94); Monocyte# 0.54 X10^3/uL; Monocyte% 12.9 % (0-10); NRBC Flagged by Analyzer 0 % (0-5); Neutrophil # 2.47 X10^3/uL (2.7-7.7); Neutrophil % 59.2 % (47-70); Platelet Count 236 K/mm3 (150-450); RBC Distribution Width CV 13.6 % (11.6-14.6); RBC Distribution Width SD 48.3 fl (35.1-43.9); Red Blood Count 3.83 M/mm3 (4.6-6.2); White Blood Count 4.2 K/mm3 (4.4-11.0)
[2024-12-03 10:19] LABS: ALB/GLOB Ratio 1.8 RATIO (0.9-2.4); AST(SGOT) 20 U/L (<=37); Alanine Aminotransfer ALT/SGPT 10 U/L (<=46); Albumin, Serum 4.4 g/dL (3.4-4.8); Alkaline Phosphatase 49 U/L (40-129); Anion Gap 12 (5-15); BUN 17 mg/dL (4-19); BUN/Creat Ratio 15.9 RATIO (10-20); Carbon Dioxide 25.2 mmol/L (21.0-32.0); Chloride 104 mmol/L (98-108); Creatinine, Serum 1.04 mg/dL (0.70-1.20); EST Glomerular Filtration Rate 76 (>60); Globulin 2.5 g/dL (2.2-4.2); Glucose 104 mg/dL (70-99); Potassium 3.5 mmol/L (3.3-5.1); Protein, Total 6.9 g/dL (5.9-8.4); Sodium Level 141 mmol/L (133-145); Total Bilirubin 0.46 mg/dL (0.00-1.30)
== END | disposition home or self-care (01) ==
LOC: MTLAB 09:08
PROVIDERS: PCP Internal Medicine; Referring Provider Internal Medicine Rheumatology; Visit Provider Internal Medicine Rheumatology
DX: M06.4 Inflammatory polyarthropathy (principal); M19.041 Primary osteoarthritis, right hand; M65.311 Trigger thumb, right thumb; M17.0 Bilateral primary osteoarthritis of knee; Z79.899 Other long term (current) drug therapy
CPT/HCPCS: 36415; 80053; 85025

== ENCOUNTER → 2025-02-27 | Outpatient (CLI) | payer MEDICARE, SELFPAY ==
[2025-02-27 10:49] LABS: Hematocrit 37.2 % (40-54); Hemoglobin 13.1 g/dL (13.0-16.5); Immature Granulocytes Count 0.000 X10^3/uL (0.0-0.0); Mean Corp Hgb Conc 35.2 g/dL (32-36); Mean Corpuscular Volume 95.6 fL (80-94); Mean Platelet Vol. 9.3 fl (6.2-12.0); NRBC Flagged by Analyzer 0 % (0-5); Platelet Count 284 K/mm3 (150-450); RBC Distribution Width CV 13.3 % (11.6-14.6); RBC Distribution Width SD 46.9 fl (35.1-43.9); Red Blood Count 3.89 M/mm3 (4.6-6.2); White Blood Count 4.9 K/mm3 (4.4-11.0)
[2025-02-27 11:17] LABS: AST(SGOT) 29 U/L (<=37); Alanine Aminotransfer ALT/SGPT 19 U/L (<=46); Albumin, Serum 4.5 g/dL (3.4-4.8); Alkaline Phosphatase 51 U/L (40-129); Anion Gap 12 (5-15); BUN 11 mg/dL (4-19); BUN/Creat Ratio 11.4 RATIO (10-20); Calcium,Total 9.6 mg/dL (7.6-11.0); Carbon Dioxide 23.8 mmol/L (21.0-32.0); Chloride 103 mmol/L (98-108); Globulin 2.6 g/dL (2.2-4.2); Glucose 94 mg/dL (70-99); Potassium 3.5 mmol/L (3.3-5.1)
== END | disposition home or self-care (01) ==
LOC: MTLAB 08:57
PROVIDERS: PCP Internal Medicine; Referring Provider Internal Medicine Rheumatology; Visit Provider Internal Medicine Rheumatology
DX: M06.4 Inflammatory polyarthropathy (principal); M19.041 Primary osteoarthritis, right hand; M65.311 Trigger thumb, right thumb; M17.0 Bilateral primary osteoarthritis of knee; E03.9 Hypothyroidism, unspecified; R73.09 Other abnormal glucose; Z79.899 Other long term (current) drug therapy
CPT/HCPCS: 36415; 80053; 83036; 84443; 85025

== ENCOUNTER → 2025-05-21 | Outpatient (CLI) | payer MEDICARE, SELFPAY ==
[2025-05-21 12:23] LABS: Hematocrit 38.0 % (40-54); Hemoglobin 13.1 g/dL (13.0-16.5); Immature Granulocytes Count 0.010 X10^3/uL (0.0-0.0); Mean Corp Hgb Conc 34.5 g/dL (32-36); Mean Corpuscular Volume 95.7 fL (80-94); Mean Platelet Vol. 9.1 fl (6.2-12.0); NRBC Flagged by Analyzer 0 % (0-5); Platelet Count 283 K/mm3 (150-450); RBC Distribution Width CV 13.7 % (11.6-14.6); RBC Distribution Width SD 48.7 fl (35.1-43.9); Red Blood Count 3.97 M/mm3 (4.6-6.2); White Blood Count 3.5 K/mm3 (4.4-11.0)
[2025-05-21 12:40] LABS: AST(SGOT) 25 U/L (<=37); Alanine Aminotransfer ALT/SGPT 17 U/L (<=46); Albumin, Serum 4.5 g/dL (3.4-4.8); Alkaline Phosphatase 48 U/L (40-129); Anion Gap 11 (5-15); BUN 18 mg/dL (4-19); BUN/Creat Ratio 19.8 RATIO (10-20); Calcium,Total 9.8 mg/dL (7.6-11.0); Carbon Dioxide 23.8 mmol/L (21.0-32.0); Chloride 108 mmol/L (98-108); Globulin 2.6 g/dL (2.2-4.2); Glucose 98 mg/dL (70-99); Potassium 3.9 mmol/L (3.3-5.1)
== END | disposition home or self-care (01) ==
LOC: MTLAB 10:11
PROVIDERS: PCP Internal Medicine; Referring Provider Internal Medicine; Visit Provider Internal Medicine
DX: M06.4 Inflammatory polyarthropathy (principal); Z79.899 Other long term (current) drug therapy; E03.9 Hypothyroidism, unspecified
CPT/HCPCS: 36415; 80053; 84443; 85025